=== PATIENT | female | born 1945 | race Caucasian/White ===

== ENCOUNTER 2019-07-10 03:06 | Emergency (ER) | payer MEDICARE, SELFPAY ==
[2019-07-10] VITALS (13 sets, daily range): BP systolic 127–162; BP diastolic 73–102; PULSE 71–95; RESP 14–18; TEMP 36.7; O2SAT 94–99; BMI 31.5
--- NOTE | 2019-07-10 03:08 | ED_ITS ---
Entered by Cathie Rivera, acting as scribe for Cele Ramos Documented by User: Cele Ramos 07/10/19 06:02 HPI - Abdominal Pain General: Chief Complaint: Abdominal Pain Stated Complaint: abd pain Time Seen by Provider: 07/10/19 03:10 Source: patient and family Mode of arrival: ambulatory History of Present Illness: HPI narrative: 74 y/o female presents to the ED with complaint of right sided abd pain. Pt states she has had this pain and nausea since last Wednesday. The pain seems worse with movement. She denies diarrhea, but has had some loose stools. She has hx of gallbladder attacks, but states this pain does not feel the same. MD elicited complaint: abdominal pain Onset (ago): week(s) Pain Consistency: constant Location: RUQ and RLQ Severity: moderate Exacerbating factors: movement Associated Symptoms: Reports loose stools; Denies chills, dysuria, fever(s), hematuria and syncope Review of Systems General: Reports: other (negative unless marked) Const: Denies: fever, chills, body aches, fatigue, malaise or diaphoresis Eyes: Denies: change in vision or blurry vision ENMT: Denies: throat pain, painful swallowing, hoarseness, ear pain, ear discharge, Change in hearing or nasal discharge Card: Denies: chest pain, palpitations, irregular heart rhythm, syncope, pre- syncope, shortness of breath on exertion or shortness of breath when lying down Resp: Denies: shortness of breath, productive cough, non-productive cough, wheezing, coughing up blood or chest congestion : Denies: flank pain, painful urination, urinary frequency, urinary urgency, decreased urine ouput, urinary incontinence or blood in urine Musc: Denies: neck pain, back pain, extremity pain, extremity swelling, joint pain, joint swelling, joint warmth or joint stiffness Skin/Breast: Denies: rash, skin tenderness or yellow skin Neuro: Denies: headache, numbness in extremities, weakness in extremities, changes in sensation, lack of coordination, difficulty walking, dizziness, vertigo or confusion Endo: Denies: excessive thirst, tired all the time, cold intolerance, excessive sweating, flushing or hot flashes Tr/Lymph: Denies: easy bruising, easy bleeding, petechiae or enlarged lymph nodes All/Imm: Denies: hives, throat swelling, tongue swelling, facial swelling or acute wheezing PFSH ED PFSH: Social History Smoking and tobacco status: current every day smoker Physical Exam Const: COMMON NORMALS: no apparent distress, oriented x3, no limitations, healthy appearing and well nourished EXAM LIMITATIONS: no altered mental status GENERAL APPEARANCE: cooperative, well kempt and well developed ORIENTATION/CONSCIOUSNESS: Yes awake HENMT: COMMON NORMALS: normocephalic, head/scalp atraumatic, hearing grossly normal bilaterally, external ears normal, EAC's normal, external nose normal and moist oral mucous membranes HEAD & SCALP: normal to inspection, normocephalic and atraumatic FACE & SINUS: normal facial exam and face symmetric NOSE: external nose normal and nares normal EXTERNAL EAR: Yes external ears normal EXTERNAL AUDITORY CANAL: EAC's normal MOUTH: oral and palatal mucosa normal and tongue normal Eye: COMMON NORMALS: PERRL, EOMs intact bilaterally, conjunctivae normal and no scleral icterus GENERAL EYE: normal appearance of both eyes and normal light reflex CONJUNCTIVA: Yes conjunctivae normal SCLERA: sclerae normal CORNEA: Yes corneas normal PUPIL: Yes PERRL DIRECT OPHTHALMOSCOPY: Yes normal light reflex Neck/C-Spine: COMMON NORMALS: full ROM, no lymphadenopathy, supple, no meningeal signs and no JVD GENERAL: Yes normal visual inspection and Yes trachea midline CERVICAL SPINE: Yes cervical ROM normal Chest: COMMONS NORMALS: inspection of chest normal and palpation of chest normal Resp: COMMON NORMALS: normal respiratory effort, no retractions, no use of accessory muscles and clear to auscultation bilaterally EFFORT & INSPECTION: Yes able to speak in complete sentences AUSCULTATION: clear to auscultation bilaterally Cardio: COMMON NORMALS: no JVD, regular rate, regular rhythm, S1 normal heart sound, S2 normal heart sound, no gallops, no clicks, no murmurs and no rub JUGULAR VENOUS DISTENTION: no JVD RATE: regular rate RHYTHM: regular rhythm HEART SOUNDS: S1 normal and S2 normal : COMMON NORMALS: Yes no CVA tenderness BLADDER/KIDNEY EXAM: Yes no CVA tenderness Back/Pelvis: COMMON NORMALS: no CVA tenderness, thoracic and lumbar spine normal to inspection, no thoracic nor lumbar tenderness and thoraco-lumbar ROM normal Extremity: COMMON NORMALS: normal to inspection, full ROM, normal capillary refill, no joint enlargement, no clubbing, cyanosis or edema and no calf tenderness Neuro: COMMON NORMALS: oriented x3, CN's II-XII intact bilaterally, moves all extremities, no focal motor deficits and no sensory deficits noted MENINGEAL SIGNS: Yes no meningeal signs Psych: COMMON NORMALS: mental status grossly normal, thought process normal, cooperative, affect normal, speech normal and activity/motor behavior normal APPEARANCE: Yes well kempt SPEECH: Yes normal speech THOUGHT PROCESS: normal thought process Skin: COMMON NORMALS: no rashes or lesions noted, skin turgor normal, no jaundice, no petechiae and no mottling GENERAL SKIN EXAM: no rashes or lesions noted and turgor normal Course Vital Signs: Vital signs: Vital Signs Temperature 98.0 F 07/10/19 03:32 Pulse Rate 71 07/10/19 09:24 Respiratory Rate 16 07/10/19 09:24 Blood Pressure 141/79 07/10/19 09:24 Pulse Oximetry 94 07/10/19 09:24 MDM - Abdominal Pain Lab Data: Labs: Lab Results 07/10/19 07/10/19 07/10/19 Range/Units 03:39 03:39 03:59 WBC 9.5 (4.0-10.0) 10^3/ uL RBC 3.97 L (4.1-5.3) 10^6/u L Hgb 11.5 (11.5-15.3) g/dL Hct 36.3 L (37.0-47.0) % MCV 91.4 (81-99) fL MCH 29.0 (28.0-34.0) pg MCHC 31.7 (30.0-36.0) g/dL RDW 12.7 (12.1-15.1) % Plt Count 362 (130-400) 10^3/c mm MPV 9.9 (7.4-10.4) fL Neut % (Auto) 70.0 % Lymph % (Auto) 15.5 % Clark % (Auto) 10.8 % Eos % (Auto) 3.1 % Baso % (Auto) 0.5 % Neut # (Auto) 6.6 (1.8-7.7) 10^3/u L Lymph # (Auto) 1.5 (0.8-4.8) 10^3/u L Clark # (Auto) 1.0 H (0.2-0.9) 10^3/u L Eos # (Auto) 0.3 (0.0-0.8) 10^3/u L Baso # (Auto) 0.1 (0.0-0.1) 10^3/u L Nucleated RBC % (a uto) 0 % Nucleated RBCs # 0.0 /100WBC Sodium 137 (136-145) mmol/L Potassium 4.0 (3.5-5.1) mmol/L Chloride 98 (98-107) mmol/L Carbon Dioxide 26 (22-29) mmol/L Anion Gap 17.0 (5-19) BUN 13 (8-23) mg/dL Creatinine 0.6 (0.5-0.9) mg/dL Glucose 133 H (65-115) mg/dL Calcium 9.8 (8.5-10.5) mg/dL Total Bilirubin 0.4 (0.15-1.2) mg/dL AST 38 H (0-32) U/L ALT 27 (0-33) U/L Alkaline Phosphata se 167 H (35-105) IU/L Total Protein 8.5 (6.6-8.7) g/dL Albumin 3.7 (3.5-5.2) g/dL Globulin 4.8 H (1.3-4.6) g/dL Lipase 14 (13-60) U/L Urine Color Yellow (Yellow) Urine Appearance Clear (CLEAR) Urine pH 5 (5-7) Ur Specific Gravit y 1.020 (1.005-1.030) Urine Protein Neg (Negative) Urine Glucose (UA) Norm (Normal) Urine Ketones Negative (Negative) Urine Occult Blood 2+ H (Negative) Urine Nitrate Negative (Negative) Urine Bilirubin Neg (NEGATIVE) Urine Urobilinogen 1 H (Negative) mg/dL Ur Leukocyte Danielle ase Negative (Negative) Urine RBC 0-4 H (0-2) /hpf Urine WBC 0-4 H (0-5) /hpf Ur Squamous Epith Cells 5-10 H (0-5) Calcium Oxalate Cr ystal >100 H /hpf Urine Bacteria Trace (NONE) Urine Mucus 1+ Discharge Plan Discharge Patient Disposition: Home, Self-Care Clinical Impression: Pancreatic mass, Pelvic mass Condition: Stable Prescriptions: New hydrocodone-acetaminophen 5-325 mg tablet 1 tab PO Q6H PRN (Reason: pain) Qty: 30 RF: 0 Zofran 4 mg tablet 4 mg PO Q6H PRN (Reason: nausea and vomiting) Qty: 20 RF: 0 No Action Multiple Vitamins Tablet 1 tab PO DAILY RF: 0 atorvastatin 80 mg tablet 80 mg PO DAILY RF: 0 Aspir-81 81 mg Tablet,Delayed Release (Dr/Ec) 81 mg PO DAILY RF: 0 levothyroxine 75 mcg tablet 75 mcg PO DAILY RF: 0 Calcium 500 500 mg calcium (1,250 mg) Tablet 500 mg PO DAILY RF: 0 Colace 100 mg Capsule 100 mg PO DAILY RF: 0 CoQ-10 100 mg Capsule 100 mg PO DAILY RF: 0 Discharge Orders: Discharge Order (Routine); Ordered 07/10/19 Ordered By: Abdulaziz Fabian Referrals: Echo Ayala MD [Family Provider] - Discharge Diet: Usual diet Discharge Activity: Increase activity as tolerated Activity Restrictions/Additional Instructions: Case management will call with a referral for CT-guided needle biopsy after this you need to see your primary care provider for further referral for pancreatic and pelvic masses Discharge Date/Time: 07/10/19 09:24 Sign Out Sign Out Data: Patient Sign Out occurred on 07/10/19 at 06:08. Patient's care was discussed, and care was transferred from to Abdulaziz Fabian DO. Coding Level of Care Code ED Melon Packer for Chg Fwd Exam Comprehensive Documented by User: Abdulaziz Fabian DO 07/11/19 10:22 HPI - Abdominal Pain General: Chief Complaint: Abdominal Pain Stated Complaint: abd pain Time Seen by Provider: 07/10/19 03:10 PFS ED PFSH: Social History Smoking and tobacco status: current every day smoker Course ED course: Care assumed at change of shift. We are waiting on ultrasounds ultrasound and CT reviewed Dr. 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 Reviewed this with her again there was a concern about invasion into the splenic artery I called and talked to Dr. Hernandez at [facility] at [facility] he states this is a common finding at the time of presentation does not require any immediate or emergent intervention unless there is signs of extravasation which there are not on the CT. We will go ahead and discharge the patient with pain and nausea control and set her up for further evaluation to get the lesions biopsied. Will refer her back to PCP to make her referrals for further work-up. Vital Signs: Vital signs: Vital Signs Temperature 98.0 F 07/10/19 03:32 Pulse Rate 71 07/10/19 09:24 Respiratory Rate 16 07/10/19 09:24 Blood Pressure 141/79 07/10/19 09:24 Pulse Oximetry 94 07/10/19 09:24 MDM - Abdominal Pain Lab Data: Labs: Lab Results 07/10/19 07/10/19 07/10/19 Range/Units 03:39 03:39 03:59 WBC 9.5 (4.0-10.0) 10^3/ uL RBC 3.97 L (4.1-5.3) 10^6/u L Hgb 11.5 (11.5-15.3) g/dL Hct 36.3 L (37.0-47.0) % MCV 91.4 (81-99) fL MCH 29.0 (28.0-34.0) pg MCHC 31.7 (30.0-36.0) g/dL RDW 12.7 (12.1-15.1) % Plt Count 362 (130-400) 10^3/c mm MPV 9.9 (7.4-10.4) fL Neut % (Auto) 70.0 % Lymph % (Auto) 15.5 % Clark % (Auto) 10.8 % Eos % (Auto) 3.1 % Baso % (Auto) 0.5 % Neut # (Auto) 6.6 (1.8-7.7) 10^3/u L Lymph # (Auto) 1.5 (0.8-4.8) 10^3/u L Clark # (Auto) 1.0 H (0.2-0.9) 10^3/u L Eos # (Auto) 0.3 (0.0-0.8) 10^3/u L Baso # (Auto) 0.1 (0.0-0.1) 10^3/u L Nucleated RBC % (a uto) 0 % Nucleated RBCs # 0.0 /100WBC Sodium 137 (136-145) mmol/L Potassium 4.0 (3.5-5.1) mmol/L Chloride 98 (98-107) mmol/L Carbon Dioxide 26 (22-29) mmol/L Anion Gap 17.0 (5-19) BUN 13 (8-23) mg/dL Creatinine 0.6 (0.5-0.9) mg/dL Glucose 133 H (65-115) mg/dL Calcium 9.8 (8.5-10.5) mg/dL Total Bilirubin 0.4 (0.15-1.2) mg/dL AST 38 H (0-32) U/L ALT 27 (0-33) U/L Alkaline Phosphata se 167 H (35-105) IU/L Total Protein 8.5 (6.6-8.7) g/dL Albumin 3.7 (3.5-5.2) g/dL Globulin 4.8 H (1.3-4.6) g/dL Lipase 14 (13-60) U/L Urine Color Yellow (Yellow) Urine Appearance Clear (CLEAR) Urine pH 5 (5-7) Ur Specific Gravit y 1.020 (1.005-1.030) Urine Protein Neg (Negative) Urine Glucose (UA) Norm (Normal) Urine Ketones Negative (Negative) Urine Occult Blood 2+ H (Negative) Urine Nitrate Negative (Negative) Urine Bilirubin Neg (NEGATIVE) Urine Urobilinogen 1 H (Negative) mg/dL Ur Leukocyte Danielle ase Negative (Negative) Urine RBC 0-4 H (0-2) /hpf Urine WBC 0-4 H (0-5) /hpf Ur Squamous Epith Cells 5-10 H (0-5) Calcium Oxalate Cr ystal >100 H /hpf Urine Bacteria Trace (NONE) Urine Mucus 1+ Discharge Plan Discharge Patient Disposition: Home, Self-Care Clinical Impression: Pancreatic mass, Pelvic mass Condition: Stable Prescriptions: New hydrocodone-acetaminophen 5-325 mg tablet 1 tab PO Q6H PRN (Reason: pain) Qty: 30 RF: 0 Zofran 4 mg tablet 4 mg PO Q6H PRN (Reason: nausea and vomiting) Qty: 20 RF: 0 No Action Multiple Vitamins Tablet 1 tab PO DAILY RF: 0 atorvastatin 80 mg tablet 80 mg PO DAILY RF: 0 Aspir-81 81 mg Tablet,Delayed Release (Dr/Ec) 81 mg PO DAILY RF: 0 levothyroxine 75 mcg tablet 75 mcg PO DAILY RF: 0 Calcium 500 500 mg calcium (1,250 mg) Tablet 500 mg PO DAILY RF: 0 Colace 100 mg Capsule 100 mg PO DAILY RF: 0 CoQ-10 100 mg Capsule 100 mg PO DAILY RF: 0 Discharge Orders: Discharge Order (Routine); Ordered 07/10/19 Ordered By: Abdulaziz Fabian Referrals: Echo Ayala MD [Family Provider] - Discharge Diet: Usual diet Discharge Activity: Increase activity as tolerated Activity Restrictions/Additional Instructions: Case management will call with a referral for CT-guided needle biopsy after this you need to see your primary care provider for further referral for pancreatic and pelvic masses Discharge Date/Time: 07/10/19 09:24 Sign Out Sign Out Data: Patient Sign Out occurred on 07/10/19 at 06:08. Patient's care was discussed, and care was transferred from to Abdulaziz Fabian DO. Coding Level of Care Code ED Melon Packer for Chg Fwd Exam Comprehensive The documentation recorded by the Miguel armando Ashley, accurately reflects the service I personally performed and the decisions made by Richard barnhart Eli N Jul 10, 2019 03:06
--- NOTE | 2019-07-10 03:17 | PC.NURSE ---
Patient states she has been having abdominal pain since last wednesday and it is located in her right upper quadrant. Patient states the pain gets worse when she lays on her side. Patient states that she has been having chills and night sweats.
--- NOTE | 2019-07-10 03:23 | CTR_ITS ---
PROCEDURE INFORMATION: Exam: CT Abdomen And Pelvis With Contrast Exam date and time: 07/10/2019 3:33 AM Age: 74 years old Clinical indication: Nausea; Abdominal pain; Localized; Right upper quadrant (ruq); Prior surgery; Surgery date: 6+ months; Surgery type: Hyst TECHNIQUE: Imaging protocol: Computed tomography of the abdomen and pelvis with intravenous contrast. Total DLP: 827.33 mGy-cm Radiation optimization: All CT scans at this facility use at least one of these dose optimization techniques: automated exposure control; mA and/or kV adjustment per patient size (includes targeted exams where dose is matched to clinical indication); or iterative reconstruction. Contrast material: VISI; Contrast volume: 95 ml; Contrast route: IV; COMPARISON: [facility] [place] Abdomen Limited 01/05/2019 11:38 AM FINDINGS: Lungs: Slight bilateral dependent atelectasis. Liver: Multiple liver masses containing soft tissue density (sees 35 to 45 HU, the largest measuring 4.5 cm in greatest diameter; no demonstration of these masses on the prior ultrasound. Gallbladder and bile ducts: No calcified stones. No ductal dilation. Pancreas: Relatively ill-defined margins of the mass in the pancreatic tail measuring 2.6 x 2.7 x 4.9 cm containing mostly soft tissue density having less enhancement than the normal pancreas; small anterior focus of water density in the mass. Spleen: No splenomegaly. Adrenals: No adrenal mass. Kidneys and ureters: Unremarkable. No hydronephrosis. Stomach and bowel: At least moderate sigmoid colonic diverticulosis. No obstruction. Appendix: Normal appendix. Intraperitoneal space: No free air. No apparent free fluid. Vasculature: No normal splenic vein; probable invasion and occlusion of the splenic vein by the pancreatic mass, especially considering the small varices in the splenic hilus. Concern for developing invasion of the splenic artery in light of the lack of fat between the mass and the artery and the apparent slight irregularity of part of the arterial margin. Atherosclerosis. No aortic aneurysm. Lymph nodes: No enlargement of the periportal nodes or the other abdominal and pelvic nodes. Bladder: No apparent abnormality of the nondistended bladder. Reproductive: Hysterectomy. Small metallic density in the left side of the vaginal cuff and in the left pelvis adjacent to the sigmoid colon. Ovoid 12 mm calcification adjacent to the left margin of the approximately 10 x 13.1 x 10.1 cm slightly lobulated pelvic mass containing multiple rim calcifications but mostly homogeneous water density; small focus of slight wall thickening in the anterior inferior margin of the mass along the medial aspect of the right lobulation. Bones/joints: Possible bone island in the left superior acetabulum. Small sclerotic focus in the left superior aspect of T10, significance unclear. Old compression fractures. Degeneration of several discs. Soft tissues: Unremarkable. CT/CT abdomen pelvis w con* [id number] IMPRESSION: 1. 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 Concern for developing invasion of the splenic artery. Multiple liver masses consistent with metastases also evident. 2. Large pelvic mass having density suggestive of an ovarian cyst, but cystadenoma not excluded considering the rim calcifications in the mass. Hysterectomy. 3. Sclerotic focus in T10, questionably a 2nd bone island considering the possible bone island in the left superior acetabulum. Other findings detailed above. Radiation Dose CTDIVOL = (mGy): DLP = 827.33 (mGy-cm)
[2019-07-10 03:46] LABS: Basophils # 0.1 10^3/uL (0.0-0.1); Basophils % 0.5 %; Eosinophils # 0.3 10^3/uL (0.0-0.8); Eosinophils % 3.1 %; Hematocrit 36.3 % (37.0-47.0); Hemoglobin 11.5 g/dL (11.5-15.3); Lymphocytes # 1.5 10^3/uL (0.8-4.8); Lymphocytes % 15.5 %; Mean Corpuscular HGB Conc 31.7 g/dL (30.0-36.0); Mean Corpuscular Volume 91.4 fL (81-99); Mean Platelet Volume 9.9 fL (7.4-10.4); Monocytes % 10.8 %; Neutrophils # 6.6 10^3/uL (1.8-7.7); Nucleated Red Blood Cells % 0 %; Platelet Count 362 10^3/cmm (130-400); Red Blood Count 3.97 10^6/uL (4.1-5.3); Red Cell Distribution Width 12.7 % (12.1-15.1); White Blood Count 9.5 10^3/uL (4.0-10.0)
[2019-07-10] MEDS: sodium chloride 0.9% 1,000 ML 100 ML IV (03:52)
[2019-07-10] MEDS: morphine 4 mg/mL SDV 1 mL IVP (03:52)
[2019-07-10] MEDS: ondansetron 2 mg/ML SDV 2 mL 4 MG IVP ×2 (03:52→09:15)
[2019-07-10 03:57] LABS: Alanine Aminotransferase 27 U/L (0-33); Albumin Level 3.7 g/dL (3.5-5.2); Alkaline Phosphatase 167 IU/L (35-105); Aspartate Amino Transferase 38 U/L (0-32); Blood Urea Nitrogen 13 mg/dL (8-23); Calcium 9.8 mg/dL (8.5-10.5); Carbon Dioxide 26 mmol/L (22-29); Chloride 98 mmol/L (98-107); Creatinine Clr Calc Pharmacy 69.9615; Globulin 4.8 g/dL (1.3-4.6); Glucose 133 mg/dL (65-115); Lipase 14 U/L (13-60); Sodium 137 mmol/L (136-145); Total Bilirubin 0.4 mg/dL (0.15-1.2); Total Protein 8.5 g/dL (6.6-8.7)
--- NOTE | 2019-07-10 04:19 | PC.NURSE ---
Patient to CT
[2019-07-10 04:22] LABS: Glucose Urine UA Norm (Normal); Ketones Urine Negative (Negative); Protein Urine Neg (Negative); Urine Appearance Clear (CLEAR); Urine Color Yellow (Yellow); pH Urine 5 (5-7)
[2019-07-10 04:23] LABS: Bilirubin Urine Neg (NEGATIVE); Blood Urine 2+ (Negative); Leukocyte Esterase Urine Negative (Negative); Nitrate Urine Negative (Negative); Urobilinogen Urine 1 mg/dL (Negative)
[2019-07-10 04:25] LABS: Bacteria Urine TRACE; Calcium Oxalate Crystals Urine >100 /hpf; Mucus Urine 1+; RBC Urine 0-4 /hpf (0-2); WBC Urine 0-4 /hpf (0-5)
[2019-07-10] MEDS: iodixanol 320 mg/mL 100mL Btl IV (04:25)
[2019-07-10 04:26] LABS: Add Urine Culture? No
--- NOTE | 2019-07-10 05:17 | PC.NURSE ---
Patient placed on 2 liters of oxygen to maintain SpO2 above 91%
--- NOTE | 2019-07-10 05:51 | US_ITS ---
WS: [id number] Complete ABDOMINAL ULTRASOUND HISTORY: Abdominal Pain COMPARISON: 01/05/2019 Liver: 15.3 cm in length. Abnormal liver. Numerous mixed echogenicity masses throughout the liver are predominantly hypoechoic. Not identified on the prior ultrasound. The largest mass measures 4.5 x 4. 9 cm. No bile duct dilatation. Gallbladder: Mild diffuse gallbladder wall thickening may be on the basis of hepatocellular disease. No stones identified. Gallbladder wall thickness: 0.4 cm. Pancreas: Head and tail are poorly visualized. CBD: 0.7 cm. Right kidney: 9.8 cm x 4.6 cm x 5.8 cm. No mass, cortical thickening or hydronephrosis. Left kidney: 10.0 cm x 5.0 cm x 6.5 cm. No mass, cortical thickening or hydronephrosis. Spleen: Normal size and echogenicity. Abdominal aorta and IVC are within normal limits. No ascites. US/US abdomen complete* [id number] IMPRESSION: 1. Hepatic metastasis. New since 01/05/2019. 2. Poorly visualized pancreas. The pancreatic tail mass identified by CT is no t readily visible by ultrasound. 3. Mild gallbladder wall thickening without cholelithiasis.
--- NOTE | 2019-07-10 05:52 | US_ITS ---
WS: [id number] TRANSABDOMINAL PELVIC ULTRASOUND HISTORY: Pelvic pain, history of hysterectomy. COMPARISON: CT abdomen and pelvis 07/10/2019 Neither uterus nor ovaries are identified. There is a large cystic collection in the midline of the pelvis slightly displacing the urinary bladd er. Midline collection measures 12.4 x 9.4 x 9.7 cm. No increased vascularity is identified. There ar e low level echoes throughout. No free fluid. US/US pelvic complete* [id number] IMPRESSION: 1. Large midline minimally complex cystic mass measuring 12.4 x 9.4 x 9.7 cm. Uncertain whether the ovaries have been removed. This may represent a cystadeno ma or neoplastic cystic mass related to the ovary. Due to its size OPTOMETRY TEACHER consulta tion is recommended. 2. Neither ovary nor uterus identified as per hysterectomy history.
--- NOTE | 2019-07-10 06:47 | PC.NURSE ---
ultrasound in room
[2019-07-10] MEDS: morphine 4 mg/mL SDV 1 mL 2 MG IVP (09:15)
--- NOTE | 2019-07-10 10:47 | PC.SOCIAL ---
Dr Fabian wrote order for outpatient CT guided biopsy of liver faxed to [facility] and talked to Cathie who has scheduled this for 07/17/2019 check in at 9am. Notified patient of the date and time by phone and to not eat 6 hours prior, Bring meds in bottles, no lotions on the safe side and will need a flatbed driver. Per Cathie no precert needed. copy of request in chart and taken to admissions.
== END 2019-07-10 09:24 | disposition home or self-care (01) ==
PROVIDERS: Emergency Medicine; Emergency Provider Family Medicine; Family Provider Family Medicine
DX: K86.9 Disease of pancreas, unspecified (principal); R19.00 Intra-abdominal and pelvic swelling, mass and lump, unspecified site; F17.200 Nicotine dependence, unspecified, uncomplicated
CPT/HCPCS: 36415; 74177; 76700; 76856; 80053; 81001; 83690; 85025; 96361; 96374; 96375; 96376; 99283; A9270; J2270; J2405; J7030; Q9967

== ENCOUNTER → 2019-07-17 08:56 | Day surgery (SDC) | payer MEDICARE, SELFPAY ==
[2019-07-14 14:28] VITALS: BMI 31.5
[2019-07-17] VITALS (11 sets, daily range): BP systolic 120–174; BP diastolic 80–111; PULSE 67–100; RESP 16–20; TEMP 36.6–37.3; O2SAT 94–100
--- NOTE | 2019-07-17 09:39 | US_ITS ---
WS: [id number] ULTRASOUND-GUIDED LIVER BIOPSY CLINICAL INFORMATION: PANCREATIC CA WITH METS, PANCREATIC MASS COMPARISON: None. TECHNIQUE: The procedure including risk, benefits, and complications were discussed with the patient who agreed to proceed. Using sterile technique, the patient was prepped and draped in the usual steri le fashion. Patient was positioned [id number] and ultrasound images were obtained through the [facility] er. The largest peripheral liver nodule was selected. After 1% lidocaine using fluoroscopic guidance, a 18 gauge Bard biopsy device was advanced into the liver mass. Approximately 5 samples were obtaine d. No immediate complications. US/US biopsy liver [id number] IMPRESSION: 1. Multiple 18-gauge core samples were obtained of the right liver mass. No im mediate complications. 2. Patient was discharged 1 hour postprocedure in stable condition.
[2019-07-17] MEDS: sodium chloride 0.9% 1,000 ML 30 ML (09:50)
[2019-07-17 10:11] LABS: Platelet Count 390 10^3/cmm (130-400)
[2019-07-17 10:27] LABS: INR 0.93 (0.8-1.2)
[2019-07-17] MEDS: midazolam 1 mg/mL INJ 5 ML IVP ×2 (10:56→11:06)
--- NOTE | 2019-07-17 11:27 | SUR.OPER ---
100mcg Fentnyl wasted 3mg Versed wated
== END ==
PROVIDERS: Radiology Neuroradiology; Family Provider Family Medicine; PCP Family Medicine; Visit Provider Family Medicine
DX: C25.9 Malignant neoplasm of pancreas, unspecified (principal)
CPT/HCPCS: 36415; 47000; 76942; 85049; 85610; 88307; 96374; 96375; J2001; J2250; J3010; J7030

== ENCOUNTER 2019-08-02 09:49 | Outpatient (CLI) | payer MEDICARE, SELFPAY ==
--- NOTE | 2019-08-02 16:24 | ONC CON_ITS ---
Dr. Moreno New Patient Note Patient: Anyi Bone Unit #: [id number]: [id number] Dicatated By: Thomas Moreno M.D.Date of Visit: Aug 02, 2019 Onc MED New Patient/Consult Referring Physician: Baldo Bell History of Present Illness: Mrs. Wai Bone, 74-year-old female who was admitted to [facility] on 07/10/2019 with right upper quadrant abdominal pain, pelvic sonogram showed large midline minimally complex cystic mass measuring 12.4 x 9.7 cm far to represent cystoadenoma or neoplastic cystic mass related to the ovary. A CT scan of abdomen pelvis was done which showed pancreatic tail mass measuring 2.7 x 4.9 cm highly suggestive of primary malignancy having invaded and occluded the splenic vein with concern for bone pain vision of splenic artery. And multiple liver masses consistent with metastatic disease and large pelvic mass having density suggestive of ovarian cyst but cystoadenoma not excluded. An ultrasound guided liver biopsy was performed on 07/17/2019 and pathology revealed moderately differentiated adenocarcinoma. Immunohistochemistry was positive for CK 7, vimentin, CA 19???9 NICOLAS. Focally positive for CEA. Patient denies any history of jaundice patient denies any history of melena or hematochezia patient denies any history of hemoptysis or hematemesis patient denies any history of vaginal bleeding. Patient denies any history of weight loss. She is still having right upper quadrant pain but being controlled by hydrocodone 10/325 and she take it 2- 3 times a day. And also complaining of off and on constipation. Patient is an excellent health otherwise, possible medical history significant for hypothyroidism, hyperlipidemia and she has history of hysterectomy in the past Smoke about half pack a day the last 30 years, denies alcohol use. Past Medical History: Ms. Hill medical history consists of hyperlipidemia and hypothyroidism. Past Surgical History: Ms. Hill surgical/procedural history consists of hysterectomy. Medications: Aspirin 1 Tablet (of 81 mg) Oral daily, Calcium 1 Capsule (of 250 mg) Oral daily, Co Q 10 1 Capsule (of 100 mg) Oral daily, HYDROcodone-Acetaminophen 1 Tablet (of 10-325 mg) Oral q 5 hours PRN, Levothyroxine Sodium 1 Tablet (of 75 mcg) Oral daily, Lipitor 1 Tablet (of 80 mg) Oral daily, MiraLax Powder Oral PRN, Multiple Vitamins/Womens Tablet Oral, Ondansetron HCl 1 Tablet (of 4 mg) Oral q 6 hours PRN Allergies: No Known Allergies. Social History: Ms. Bone is and she is retired. She is a daily smoker who has smoked 0.5 packs/day for 30 years. She drinks daily. She consumes 1 drink/day. Family History: Father- colon cancer Mother- lung cancer. Review Of Symptoms: Constitutional - Appetite is diminished and weight is stable. No fever, chills, hot flashes. Positive for night sweats. Energy level is fair, ENMT - Positive for sinus congestion/drainage. No mouth sores. No sore throat or difficulty swallowing, Hematologic/Lymphatic - Positive for easy bruisnig, Respiratory - No shortness of breath. No cough. No pleuritic pain or hemoptysis, Cardiovascular - No angina pain. No palpitations, Gastrointestinal - Positive for nausea, no vomiting. No heartburn or acid reflux. Positive for diarrhea, no constipation. No blood in the stool or black stools, Genitourinary (F) - No dysuria or hematuria. No urinary frequency. No urgency or incontinence, Musculoskeletal - No joint or bone pain, Neurologic - No headache or dizziness. No numbness/paresthesias or other focal neurologic symptoms, Psychiatric - Positive for anxiety. Vital Signs: Performed on Aug 02, 2019 11:44: 4, 31.59 (HIGH), 1.66 sq.m, 59 in, 95 % (LOW), 72 /min, 17 /min, 131/81 mm(hg), 98.0 F (LOW), and 156.4 lbs (HIGH). Performance Status: 0 - Fully active, able to carry on all predisease activities without restrictions. (ECOG) Physical Examination: ENMT - . No oral exudates, ulcers, masses, thrush or mucositis. Oropharynx clear. Tongue normal, Respiratory - Lungs are clear to auscultation without rhonchi or wheezing, Cardiovascular - Regular rate and rhythm of heart, Abdomen - obesity,Non-tender, non-distended, Good bowel sounds. No guarding or rebound tenderness. No pulsatile masses, Extremities - no edema. Lab/Imaging: Most recent lab results are not available for this patient. Impression: Moderately differentiated adenocarcinoma per ultrasound-guided liver biopsy done on 07/17/2019, immunohistochemistry positive for CK 7, vimentin, high molecular weight CK, CA 19???9, NICOLAS. CT scan of abdomen pelvis done on 07/10/2019 showed anterior tibial mass measuring 2.7 x 4.9 cm highly suggestive of primary malignancy and having invaded and occluded the splenic vein, concern for developing invasion of splenic artery. Multiple liver masses consistent with metastatic disease. Large pelvic mass having density suggestive of ovarian cyst, but cystoadenoma not excluded considering rim calcification in the mass, status post hysterectomy Sclerotic focus in T10, questionable second bone island considering possible bone island in the left superior acetabulum. History of hypothyroidism History of hyperlipidemia Plan: Discussed with patient regarding her disease status and treatment options, patient's ultrasound-guided liver biopsy confirmed moderately differentiated adenocarcinoma and immunohistochemistry findings are not entirely specific but suggest a pancreaticobiliary primary. At this point we will consider MSI/MMR status on the tumor if positive, immunotherapy with pembrolizumab can be considered also check BRCA1/2 status if positive may consider gemcitabine/cisplatin based combination also check an TRK1 gene status. In the meantime also review tumor marker CA 19???9 is elevated, will use for follow-up and CEA 125 if elevated will consider intervention for pelvic mass otherwise monitor. Patient has excellent performance status and may consider modified dose of folfirinox and titrate up as tolerated. Other options including gemcitabine/Abraxane or gemcitabine/cisplatin if BRCA 1/2 is positive or gemcitabine/Xeloda, was also discussed All the side effect possible benefits associated with 5-FU/oxaliplatin/Camptosar were discussed further teaching done by chemotherapy nurse. We will obtain approval from her insurance and also request for Port-A-Cath placement and we'll give her prescription for her pain medication hydrocodone 10/325 she will take 1 tablet every 4-6 hours as needed. And patient will return to clinic 1 week after chemotherapy is initiated with CBC CMP Signed By: Thomas Moreno M.D. <<Signature on File>>
[2019-08-16 09:52] LABS: Miscellaneous Test See Scanned Lab Rpt
== END 2019-08-02 09:50 | disposition home or self-care (01) ==
LOC: ONCMED 09:49
PROVIDERS: Family Provider Family Medicine; PCP Family Medicine; Visit Provider Internal Medicine Hematology & Oncology
DX: C25.2 Malignant neoplasm of tail of pancreas (principal); C78.7 Secondary malignant neoplasm of liver and intrahepatic bile duct; G89.3 Neoplasm related pain (acute) (chronic); K59.00 Constipation, unspecified; E78.5 Hyperlipidemia, unspecified; E03.9 Hypothyroidism, unspecified; F17.210 Nicotine dependence, cigarettes, uncomplicated; F10.20 Alcohol dependence, uncomplicated; Z79.82 Long term (current) use of aspirin; Z79.899 Other long term (current) drug therapy; Z79.891 Long term (current) use of opiate analgesic
CPT/HCPCS: 88341; 88342; 99203

== ENCOUNTER 2019-08-14 10:58 | Day surgery (SDC) | payer MEDICARE, SELFPAY ==
[2019-08-11 13:06] VITALS: BMI 30.9
--- NOTE | 2019-08-14 | SCC_ITS ---
Procedure Done: Right IJ ultrasound-guided insertion of Port-A-Cath PowerPort 8.4 seconds of fluoroscopic guidance, for a cumulative dose of 0.40 mGy, was provided to Dr. Conroy by the radiology department. C-arm images of the chest were saved for the patient's permanent record. [facility]
[2019-08-14 11:31] VITALS: BP 125/97; PULSE 80; RESP 20; TEMP 37.3; O2SAT 96
--- NOTE | 2019-08-14 11:45 | W.PM.OPSUD ---
Surgery/Procedure H&P Update DATE OF PROCEDURE: August 14, 2019 DATE H&P PERFORMED: 08/09/19 H&P UPDATE INFORMATION: I have reviewed H&P completed within last 30 days, I have examined patient prior to procedure and No changes to prior documentation PREOP DIAGNOSIS: Pancreatic cancer requires Port-A-Cath PRIMARY INDICATION FOR PROCEDURE: The same PLANNED PROCEDURE: Operation Date: 08/14/19 12:30 Proposed Procedures p Portacath Placement 66436 C25.9 C78.7(Not Applicable) - Willard Conroy MD
[2019-08-14] MEDS: sodium chloride 0.9% 1,000 ML 30 ML IV (11:54)
--- NOTE | 2019-08-14 11:58 | P.ANESASSM_ITS ---
Pre-Anesthetic Assessment Pre-Anesthetic Assessment: Height/Weight: Height 1.5 m Weight 69.4 kg Temp Pulse Resp BP Pulse Ox 99.2 F 80 20 H 125/97 96 08/14/19 11:31 08/14/19 11:31 08/14/19 11:31 08/14/19 11:31 08/14/19 11:31 Preop Diagnosis: Pancreatic cancer requires Port-A-Cath Proposed Procedure: Operation Date: 08/14/19 12:30 Proposed Procedures p Portacath Placement 04556 C25.9 C78.7(Not Applicable) - Willard Conroy MD Familial anesthetic complications: Hard to wake up after anesthesia with pen tothal in the 1960s Was Beta Maite taken within 24 hours: N/A Last intake: Intake NPO > 8 hrs Last Liquid Date 08/14/19 Last Liquid Time 06:30 Last Solid Date 08/13/19 Last Solid Time 19:00 Social: Social History: Alcohol (1 glass of wine daily) and Tobacco Packs per day: 0.5 ppd Exam: Pre-Anes Outpt Exam: alert, oriented x 3, clear to auscultation bilaterally and regular rate & rhythm Airway: Cervical ROM: WNL MP: 2 Dentition: Full Pulmonary: Pulmonary: None reported CV/HEM: CV/HEM: None reported : : None reported Hepatic: Comments: liver mets from pancreas GI: GI: None reported Metabolic: Metabolic: Hyperlipidemia and Thyroid Musc/skel: Musc/skel: Lower Back Pain and OA/DJD Neuropsych: Neuropsych: None reported Anesthetic Plan: ASA status: 4 Anesthesia: MAC Risk of > 500 ml blood loss (7ml/kg in children): No Meds/Allergies Current Medications: Current Medications Generic Name Dose Route Start Last Admin Trade Name Freq PRN Reason Stop Dose Admin Sodium Chloride 1,000 mls @ 30 ml s/hr 08/14/19 11:30 08/14/19 11:54 Sodium Chloride 0.9% IV 08/15/19 11:29 30 mls/hr .Q24H MURRAY Administration PFSH Anesthesia PFSH: Social History Smoking and tobacco status: current every day smoker Alcohol intake: current Alcohol intake frequency: 0-2 Drinks per Day Alcohol type: wine Data Anesthesia Cardiac Studies: No Data to Display
--- NOTE | 2019-08-14 12:18 | SC_ITS ---
WS: [id number] C-ARM RADIOGRAPHS CHEST; 3 IMAGES HISTORY: port placement COMPARISON: None available. Intraoperative imaging during Port-A-Cath placement. There is a vascular catheter projecting just to the RIGHT of the midline with tip in distal SVC. SC/C-arm [place] for CVA [id number] IMPRESSION: Intraoperative imaging during Port-A-Cath placement.
[2019-08-14] MEDS: lidocaine 2% INJ 20 mL INJECTION (12:46)
[2019-08-14] MEDS: heparin, porcine 1,000 unit/mL INJ 10 mL 10000 UNIT INJECTION (12:46)
--- NOTE | 2019-08-14 13:23 | P.OP_ITS ---
Operative Report Date of procedure: August 14, 2019 Pre-op Diagnosis: Pancreatic cancer requires Port-A-Cath Post-op diagnosis: same Procedure Done: Right IJ ultrasound-guided insertion of Port-A-Cath PowerPort All ultrasound and fluoroscopic guidance interpretation was done by me through the whole entire procedure Implants: Right upper chest PowerPort Port-A-Cath Surgeon: Willard Conroy Crimping Press Operator: case technician Loida Circulating nurse Rosalva Anesthesia: MAC (hypercil core transformer assembler Param) Estimated blood loss (mL): 5 Condition: stable Disposition: same day Brief History: This is a pleasant 74 years old female patient referred to my practice due to the need for long-term IV access due to her pancreatic cancer . plan of care; After thorough history physical examination and reviewing the chart, I counseled the patient for Port-A-Cath placement, indications, risks including pneumothorax and injury of major vascular structures, benefits, and alternatives were all discussed with the patient, patient understands and is interested to proceed. Informed consent per chart Assurance and education All questions have been answered Procedure: U/S Guided IJ access Patient was identified in the holding area and taken to the operative room and placed in supine position IV propofol was given by the anesthesia provider ,both arms were tucked,Time-out was done verifying the patient's name/date of /planned procedure and destination after the procedure, all were in agreement. SCDs confirmed to be functioning, preoperative antibiotics administered per protocol, and beta fidel protocol was confirmed, appropriate positioning of the patient was done by me. Medications were reviewed to assess for anticoagulant usage. Risks and benefits and prevention of central line associated blood stream infection (CLABSI) were discussed with the patient/CPOA, and a consent was obtained. Monitors were in place and monitored throughout the procedure. All necessary supplies were available prior to start. Hand hygiene was completed prior to starting. Maximum barrier technique was utilized including a sterile gown, sterile gloves with a hat and mask. Site was was prepped with [chlorhexidine] and a full body drape was placed. 5 mL of 2% lidocaine was injected into the skin with a 25 gauge needle. Prep& drape was done under the usual sterile technique, lidocaine 2% was injected at the site of the stick, started by right subclavian vein couple of times but no venous blood was retrieved then I did deviate my attention to the right Internal Juglar vein stick that retrieved venous blood was obtained from the first stick under ultrasound guidance and there was no evidence of intraluminal thrombosis, interpretation was done by me through the whole entire procedure, a guidewire was then threaded and under the guidance of fluoroscopy position was confirmed to be in the IVC and my interpretation, there was no PVC changes, at that point the guidewire was secured to the drapes with a hemostat and the needle was taken out. Attention was then deviated towards creation of a pocket for the port were lidocaine 2% was injected using an 15 blade knife skin incision was created at the right upper Chest ,dissection using the Bovie to create a pocket for the Port-A-Cath to be accommodated, hemostasis was secured, after the port being appropriately flushed it was inserted into the pocket and a tunneler was used to accommodate the catheter of the port cath to be delivered through the incision first created at the site of the stick, yet I had to create a transit incision at the root of the neck at the right side to the patient difficult anatomy , and then I was able to retrieve the catheter at the index site of the stick. At that point under fluoroscopy an estimated length was measured for the catheter and was cut at the designed level, followed by that a dilator with the sheath introduced onto the guidewire the dilator and the wire were retrieved and the catheter of the port was introduced via the sheath where it was peeled off and the catheter maintained to be in the SVC that was confirmed with fluoroscopy, and the fluoroscopy interpretation was done by me throughout the entire procedure. Multiple flushes of the port was done by diluted heparin and I was able to retrieve without difficulty venous blood as well as appropriate flushing was achieved. The port was secured to the fascia with using Prolene sutures, 4-0 Vicryl deep subdermal interrupted sutures, skin was then closed by 4-0 Monocryl as subcu ticular closure. The stick site was closed by 4-0 Monocryl and Dermabond was used followed by dressing. Patient tolerated the procedure well was taken to the recovery area Count was correct at the end of the procedure I was present for the whole entire procedure
[2019-08-14 13:25] VITALS: BP 134/81; PULSE 76; RESP 18; O2SAT 99
--- NOTE | 2019-08-14 13:27 | XRR_ITS ---
PROCEDURE INFORMATION: Exam: XR Chest, 1 View Exam date and time: 08/14/2019 1:40 PM Age: 74 years old Clinical indication: Status post right IJ Port-a-cath placement TECHNIQUE: Imaging protocol: XR of the chest Views: 1 view. COMPARISON: No relevant prior studies available. FINDINGS: Tubes, catheters and devices: There is a right jugular port present with the catheter tip in the superior vena cava. Lungs: No lung consolidation or pulmonary edema. Pleural space: No pleural effusion or pneumothorax. Heart/Mediastinum: The cardiac silhouette is not enlarged. The mediastinal contours are normal. Bones/joints: No acute osseous abnormality. XR/XR chest 1V portable [id number] IMPRESSION: 1. Port catheter tip in the superior vena cava. 2. No pneumothorax.
[2019-08-14 13:29] LABS: Hematocrit 32.2 % (37.0-47.0); Mean Corpuscular HGB Conc 31.1 g/dL (30.0-36.0); Mean Corpuscular Hemoglobin 27.9 pg (28.0-34.0); Mean Corpuscular Volume 89.7 fL (81-99); Mean Platelet Volume 9.5 fL (7.4-10.4); Platelet Count 541 10^3/cmm (130-400); Red Blood Count 3.59 10^6/uL (4.1-5.3); Red Cell Distribution Width 13.7 % (12.1-15.1); White Blood Count 11.9 10^3/uL (4.0-10.0)
[2019-08-14 13:32] VITALS: BP 109/72; PULSE 84; RESP 20; TEMP 36.8; O2SAT 95
[2019-08-14 13:57] LABS: Carcinoembryonic Antigen 113.9 ng/mL (0.0-4.7)
[2019-08-14 14:00] LABS: Absolute Eosinophils 0.1 10^3/cmm (0.0-0.7); Absolute Segmented Neutrophil 9.6 10/cmm (1.6-7.1); Eosinophils 1 %; Lymphocytes 9 %; Monocytes Absolute 1.1 10^3/cmm (0.1-0.6); Segmented Neutrophils 81 %; Total Cells Counted 100 (0-100)
[2019-08-14 14:01] LABS: Platelet Estimate Increased (Normal)
--- NOTE | 2019-08-14 14:02 | PC.NURSE ---
PT GIVEN POWER PORT DISCHARGE KIT . INSTRUCTED TO BRING WITH HER TO VISIT AND PROCEDURE.
[2019-08-14 14:08] LABS: Alanine Aminotransferase 16 U/L (0-33); Albumin Level 3.4 g/dL (3.5-5.2); Alkaline Phosphatase 210 IU/L (35-105); Anion Gap 15.8 (5-19); Aspartate Amino Transferase 33 U/L (0-32); Blood Urea Nitrogen 10 mg/dL (8-23); Calcium 9.3 mg/dL (8.5-10.5); Carbon Dioxide 27 mmol/L (22-29); Chloride 94 mmol/L (98-107); Globulin 4.7 g/dL (1.3-4.6); Glucose 110 mg/dL (65-115); Osmolality Calculated 273 mOsm/kg (285-295); Potassium 3.8 mmol/L (3.5-5.1); Sodium 133 mmol/L (136-145); Total Bilirubin 0.4 mg/dL (0.15-1.2); Total Protein 8.1 g/dL (6.6-8.7)
[2019-08-14 14:50] LABS: Cancer Antigen 19 9 6445 U/mL (0-35)
== END 2019-08-14 14:09 | disposition home or self-care (01) ==
PROVIDERS: Internal Medicine Hematology & Oncology; Family Provider Family Medicine; PCP Family Medicine; Visit Provider Surgery
PROC: (CPT 36556; principal; 2019-08-14 12:30)
DX: C25.9 Malignant neoplasm of pancreas, unspecified (principal); F17.210 Nicotine dependence, cigarettes, uncomplicated; E78.5 Hyperlipidemia, unspecified; M19.90 Unspecified osteoarthritis, unspecified site; Z79.82 Long term (current) use of aspirin; Z82.49 Family history of ischemic heart disease and other diseases of the circulatory system; Z83.3 Family history of diabetes mellitus; Z82.3 Family history of stroke
CPT/HCPCS: 36556; 12345; 36415; 71045; 77001; 80053; 82378; 85007; 85027; 86301; 96365; C1788; J0690; J1644; J2001; J2704; J3010; J7030

== ENCOUNTER 2019-08-22 06:43 | Outpatient (RCR) | payer MEDICARE, SELFPAY ==
[2019-08-16] MEDS: dextrose 5 % 500 ML 75 ML (09:00)
[2019-08-16] MEDS: HYDROcodone-acetaminophen 10-325 mg Tablet 1 TAB PO (11:22)
[2019-08-22 13:49] LABS: Basophils # 0.1 10^3/uL (0.0-0.1); Basophils % 0.5 %; Eosinophils # 0.4 10^3/uL (0.0-0.8); Eosinophils % 2.4 %; Hemoglobin 8.9 g/dL (11.5-15.3); Lymphocytes # 1.4 10^3/uL (0.8-4.8); Lymphocytes % 7.9 %; Mean Corpuscular HGB Conc 31.8 g/dL (30.0-36.0); Mean Corpuscular Hemoglobin 28.3 pg (28.0-34.0); Mean Corpuscular Volume 88.9 fL (81-99); Mean Platelet Volume 9.7 fL (7.4-10.4); Monocytes # 0.8 10^3/uL (0.2-0.9); Monocytes % 4.7 %; Neutrophils # 14.7 10^3/uL (1.8-7.7); Neutrophils % 83.2 %; Nucleated Red Blood Cells % 0 %; Platelet Count 229 10^3/cmm (130-400); Red Blood Count 3.15 10^6/uL (4.1-5.3); Red Cell Distribution Width 14.1 % (12.1-15.1); White Blood Count 17.6 10^3/uL (4.0-10.0)
[2019-08-22 14:00] LABS: Alanine Aminotransferase 50 U/L (0-33); Alkaline Phosphatase 345 IU/L (35-105); Anion Gap 16.6 (5-19); Aspartate Amino Transferase 59 U/L (0-32); Blood Urea Nitrogen 11 mg/dL (8-23); Calcium 8.8 mg/dL (8.5-10.5); Carbon Dioxide 25 mmol/L (22-29); Chloride 93 mmol/L (98-107); Globulin 3.6 g/dL (1.3-4.6); Glucose 119 mg/dL (65-115); Osmolality Calculated 269 mOsm/kg (285-295); Potassium 3.6 mmol/L (3.5-5.1); Sodium 131 mmol/L (136-145); Total Bilirubin 0.5 mg/dL (0.15-1.2); Total Protein 6.6 g/dL (6.6-8.7)
[2019-08-22 14:25] LABS: Slide Review Slide Review Perform
== END 2019-08-22 23:59 | disposition home or self-care (01) ==
LOC: ONCMED 06:43
PROVIDERS: Family Provider Family Medicine; PCP Family Medicine; Visit Provider Internal Medicine Hematology & Oncology
DX: Z51.11 Encounter for antineoplastic chemotherapy (principal); C25.2 Malignant neoplasm of tail of pancreas; D70.1 Agranulocytosis secondary to cancer chemotherapy; T45.1X5A Adverse effect of antineoplastic and immunosuppressive drugs, initial encounter
CPT/HCPCS: 36591; 80053; 85025; 96367; 96368; 96372; 96375; 96413; 96415; 96416; 96417; 96523; J0461; J0640; J1100; J1453; J2469; J2505; J9206; J9263

== ENCOUNTER 2019-09-15 06:46 | Outpatient (RCR) | payer MEDICARE, SELFPAY ==
--- NOTE | 2019-08-23 11:23 | ONC FU_ITS ---
Dr. Moreno follow up note Patient: Anyi Bone Unit #: [id number]: [id number] Dicatated By: Thomas Moreno M.D.Date of Visit:Aug 23, 2019 Onc Med Follow-up/Prog Note History of Present Illness: Mrs. Wai Bone, 74-year-old female who was admitted to [facility] on 07/10/2019 with right upper quadrant abdominal pain, pelvic sonogram showed large midline minimally complex cystic mass measuring 12.4 x 9.7 cm far to represent cystoadenoma or neoplastic cystic mass related to the ovary. A CT scan of abdomen pelvis was done which showed pancreatic tail mass measuring 2.7 x 4.9 cm highly suggestive of primary malignancy having invaded and occluded the splenic vein with concern for bone pain vision of splenic artery. And multiple liver masses consistent with metastatic disease and large pelvic mass having density suggestive of ovarian cyst but cystoadenoma not excluded. An ultrasound guided liver biopsy was performed on 07/17/2019 and pathology revealed moderately differentiated adenocarcinoma. Immunohistochemistry was positive for CK 7, vimentin, CA 19???9 NICOLAS. Focally positive for CEA. Patient denies any history of jaundice patient denies any history of melena or hematochezia patient denies any history of hemoptysis or hematemesis patient denies any history of vaginal bleeding. Patient denies any history of weight loss. She is still having right upper quadrant pain but being controlled by hydrocodone 10/325 and she take it 2- 3 times a day. And also complaining of off and on constipation. Patient is an excellent health otherwise, possible medical history significant for hypothyroidism, hyperlipidemia and she has history of hysterectomy in the past Smoke about half pack a day the last 30 years, denies alcohol use. Started on modified dose for folfirinox every 2 weeks on 08/16/2019 Came for follow-up, denies any specific complaint except generalized weakness fatigue and, episode of mild nausea but no vomiting no diarrhea or constipation, no melena or hematochezia, no jaundice, no skin rash, no mouth sores. Tolerated first cycle of modified dose folfirinox well Medications: Aspirin 1 Tablet (of 81 mg) Oral daily, Calcium 1 Capsule (of 250 mg) Oral daily, Co Q 10 1 Capsule (of 100 mg) Oral daily, HYDROcodone-Acetaminophen 1 Tablet (of 10-325 mg) Oral q 5 hours PRN, Levothyroxine Sodium 1 Tablet (of 75 mcg) Oral daily, Lipitor 1 Tablet (of 80 mg) Oral daily, MiraLax Powder Oral PRN, Multiple Vitamins/Womens Tablet Oral, Ondansetron HCl 1 Tablet (of 4 mg) Oral q 6 hours PRN Allergies: No Known Allergies. Review of Systems: Review of Systems is not available for this patient. Vital Signs: Performed on Aug 23, 2019 08:30 Height - 59.00 in Weight - 154.0 lbs (LOW) BSA - 1.65 sq.m BMI - 31.10 (HIGH) Temperature - 98.1 F (LOW) Pulse - 97 /min Respiration - 20 /min BP - 132/72 mm(hg) O2 Sat - 97 % Pain - 0 Performance Status: 1 - No physically strenuous activity, but ambulatory and able to carry out light or sedentary work (e.g. office work, light house work). (ECOG) Physical Examination: ENMT - . No oral exudates, ulcers, masses, thrush or mucositis. Oropharynx clear. Tongue normal, Respiratory - Lungs are clear to auscultation without rhonchi or wheezing, Cardiovascular - Regular rate and rhythm of heart, Abdomen - Non-tender, non-distended, Good bowel sounds. No guarding or rebound tenderness. No pulsatile masses, Extremities - 1+ edema bilaterally. Lab/Imaging: Test performed on Aug 16, 2019 08:57 Glucose 110 mg/dL BUN 10 mg/dL Creatinine 0.5 mg/dL Cr Clearance (Est) 112.23 mL/min Sodium 133 mmol/L Potassium 3.8 mmol/L Chloride 94 mmol/L CO2 27 mmol/L Calcium 9.3 mg/dL Protein, Total 8.1 g/dL Albumin 3.4 g/dL Globulin 4.7 g/dL Bilirubin, Total 0.4 mg/dL Alkaline Phosphatase 210 IU/L AST (SGOT) 33 IU/L ALT (SGPT) 16 IU/L WBC 11.9 10^9/L RBC 3.59 10^12/L HGB 10.0 g/dL HCT 32.2 % MCV 89.7 fl MCH 27.9 pg MCHC 31.1 g/dL RDW 13.7 % Platelet Count 541 10^9/L MPV 9.5 fL Monocytes 1.1 10^9/L Eosinophils 0.1 10^9/L Manual Lymphocytes 9 % Manual Monocytes 9.0 % Manual Eosinophils 1 % CA 19-9 6445 Units/mL CEA 113.9 ng/mL Impression: Moderately differentiated adenocarcinoma per ultrasound-guided liver biopsy done on 07/17/2019, immunohistochemistry positive for CK 7, vimentin, high molecular weight CK, CA 19???9, NICOLAS. CT scan of abdomen pelvis done on 07/10/2019 showed anterior tibial mass measuring 2.7 x 4.9 cm highly suggestive of primary malignancy and having invaded and occluded the splenic vein, concern for developing invasion of splenic artery. Multiple liver masses consistent with metastatic disease. Large pelvic mass having density suggestive of ovarian cyst, but cystoadenoma not excluded considering rim calcification in the mass, status post hysterectomy Sclerotic focus in T10, questionable second bone island considering possible bone island in the left superior acetabulum. History of hypothyroidism History of hyperlipidemia Plan: Discussed with patient regarding her labs white blood count 17.6 hemoglobin 8.9 hematocrit 28 platelets 229,000 CMP within normal limit except sodium 131, ALT 50 compared to 16 last time and AST 59 compared to 33 prior to the treatment and alkaline phosphatase 345, CA 19???9 6445, CEA 113.9 Clinically, patient is doing reasonably well, tolerated first modified dose of folfirinox well but with expected side effects e.g. progressive anemia, mild nausea and now with abnormal LFTs. We will repeat her CBC CMP and CA 125(patient has ovarian cyst) in a week if repeat lab shows persistent abnormal LFTs then will consider further reduction in her chemotherapy dose to minimize chemotherapy induced toxicity and if her hemoglobin dropped below 8 g, we will consider blood transfusion and any melena workup. X Mild hyponatremia, patient is consuming excessive free water, she was advised cutdown free water intake, will follow sodium. Signed By: Thomas Moreno M.D. <<Signature on File>>
[2019-08-29 17:00] LABS: Basophils # 0.1 10^3/uL (0.0-0.1); Basophils % 0.3 %; Eosinophils # 0.5 10^3/uL (0.0-0.8); Eosinophils % 2.8 %; Hematocrit 29.5 % (37.0-47.0); Hemoglobin 9.3 g/dL (11.5-15.3); Lymphocytes # 2.3 10^3/uL (0.8-4.8); Lymphocytes % 14.3 %; Mean Corpuscular HGB Conc 31.5 g/dL (30.0-36.0); Mean Corpuscular Hemoglobin 27.8 pg (28.0-34.0); Mean Corpuscular Volume 88.1 fL (81-99); Mean Platelet Volume 9.4 fL (7.4-10.4); Monocytes # 1.3 10^3/uL (0.2-0.9); Monocytes % 8.3 %; Neutrophils # 11.4 10^3/uL (1.8-7.7); Neutrophils % 71.7 %; Nucleated Red Blood Cells % 0 %; Platelet Count 661 10^3/cmm (130-400); Red Blood Count 3.35 10^6/uL (4.1-5.3); Red Cell Distribution Width 14.8 % (12.1-15.1); White Blood Count 15.9 10^3/uL (4.0-10.0)
[2019-08-29 22:47] LABS: Alanine Aminotransferase 35 U/L (0-33); Albumin Level 3.1 g/dL (3.5-5.2); Alkaline Phosphatase 476 IU/L (35-105); Anion Gap 19.4 (5-19); Aspartate Amino Transferase 50 U/L (0-32); Blood Urea Nitrogen 9 mg/dL (8-23); Calcium 9.2 mg/dL (8.5-10.5); Carbon Dioxide 27 mmol/L (22-29); Chloride 87 mmol/L (98-107); Globulin 4.1 g/dL (1.3-4.6); Glucose 70 mg/dL (65-115); Osmolality Calculated 264 mOsm/kg (285-295); Potassium 3.4 mmol/L (3.5-5.1); Sodium 130 mmol/L (136-145); Total Bilirubin 0.4 mg/dL (0.15-1.2); Total Protein 7.2 g/dL (6.6-8.7)
[2019-08-30] MEDS: dextrose 5% 250 ML 75 ML (08:40)
[2019-08-30] MEDS: dextrose 5% 250 ML 75 ML IV (10:35)
[2019-09-11 15:35] LABS: Basophils # 0.2 10^3/uL (0.0-0.1); Basophils % 0.7 %; Eosinophils # 0.4 10^3/uL (0.0-0.8); Eosinophils % 1.3 %; Hematocrit 35.1 % (37.0-47.0); Hemoglobin 10.8 g/dL (11.5-15.3); Lymphocytes # 3.3 10^3/uL (0.8-4.8); Lymphocytes % 10.6 %; Mean Corpuscular HGB Conc 30.8 g/dL (30.0-36.0); Mean Corpuscular Hemoglobin 26.9 pg (28.0-34.0); Mean Corpuscular Volume 87.5 fL (81-99); Mean Platelet Volume 9.9 fL (7.4-10.4); Monocytes # 1.7 10^3/uL (0.2-0.9); Monocytes % 5.5 %; Neutrophils # 21.1 10^3/uL (1.8-7.7); Neutrophils % 67.6 %; Nucleated Red Blood Cells # 0.1 /100WBC; Nucleated Red Blood Cells % 0.2 %; Platelet Count 722 10^3/cmm (130-400); Red Blood Count 4.01 10^6/uL (4.1-5.3); Red Cell Distribution Width 16.4 % (12.1-15.1)
[2019-09-11 15:55] LABS: White Blood Count 31.3 10^3/uL (4.0-10.0)
[2019-09-11 16:03] LABS: Slide Review Slide Review Perform
[2019-09-11 16:52] LABS: Alanine Aminotransferase 23 U/L (0-33); Albumin Level 3.7 g/dL (3.5-5.2); Alkaline Phosphatase 583 IU/L (35-105); Anion Gap 21.5 (5-19); Aspartate Amino Transferase 40 U/L (0-32); Blood Urea Nitrogen 8 mg/dL (8-23); Calcium 9.6 mg/dL (8.5-10.5); Carbon Dioxide 28 mmol/L (22-29); Chloride 89 mmol/L (98-107); Globulin 4.5 g/dL (1.3-4.6); Glucose 96 mg/dL (65-115); Osmolality Calculated 276 mOsm/kg (285-295); Potassium 3.5 mmol/L (3.5-5.1); Sodium 135 mmol/L (136-145); Total Bilirubin 0.3 mg/dL (0.15-1.2); Total Protein 8.2 g/dL (6.6-8.7)
--- NOTE | 2019-09-12 14:26 | ONC FU_ITS ---
Dr. Moreno follow up note Patient: Anyi Bone Unit #: [id number]: 1945 Dicatated By: Thomas Moreno M.D.Date of Visit:Sep 12, 2019 Onc Med Follow-up/Prog Note History of Present Illness: Mrs. Wai Bone, 74-year-old female who was admitted to [facility] on 07/10/2019 with right upper quadrant abdominal pain, pelvic sonogram showed large midline minimally complex cystic mass measuring 12.4 x 9.7 cm far to represent cystoadenoma or neoplastic cystic mass related to the ovary. A CT scan of abdomen pelvis was done which showed pancreatic tail mass measuring 2.7 x 4.9 cm highly suggestive of primary malignancy having invaded and occluded the splenic vein with concern for bone pain vision of splenic artery. And multiple liver masses consistent with metastatic disease and large pelvic mass having density suggestive of ovarian cyst but cystoadenoma not excluded. An ultrasound guided liver biopsy was performed on 07/17/2019 and pathology revealed moderately differentiated adenocarcinoma. Immunohistochemistry was positive for CK 7, vimentin, CA 19???9 NICOLAS. Focally positive for CEA. Patient denies any history of jaundice patient denies any history of melena or hematochezia patient denies any history of hemoptysis or hematemesis patient denies any history of vaginal bleeding. Patient denies any history of weight loss. She is still having right upper quadrant pain but being controlled by hydrocodone 10/325 and she take it 2- 3 times a day. And also complaining of off and on constipation. Patient is an excellent health otherwise, possible medical history significant for hypothyroidism, hyperlipidemia and she has history of hysterectomy in the past Smoke about half pack a day the last 30 years, denies alcohol use. Started on modified dose for folfirinox every 2 weeks on 08/16/2019 Evaluated via telephone, patient denies any specific complaints except mild bipedal edema. Otherwise no fever or chills, no nausea or vomiting, no diarrhea constipation, no jaundice, no mouth sores, tolerating systemic chemotherapy with folfirinox well Medications: Aspirin 1 Tablet (of 81 mg) Oral daily, Calcium 1 Capsule (of 250 mg) Oral daily, Co Q 10 1 Capsule (of 100 mg) Oral daily, HYDROcodone-Acetaminophen 1 Tablet (of 10-325 mg) Oral q 5 hours PRN, Levothyroxine Sodium 1 Tablet (of 75 mcg) Oral daily, Lipitor 1 Tablet (of 80 mg) Oral daily, MiraLax Powder Oral PRN, Multiple Vitamins/Womens Tablet Oral, Ondansetron HCl 1 Tablet (of 4 mg) Oral q 6 hours PRN Allergies: No Known Allergies. Review of Systems: Review of Systems is not available for this patient. Vital Signs: Vitals are not available for this patient. Performance Status: 1 - No physically strenuous activity, but ambulatory and able to carry out light or sedentary work (e.g. office work, light house work). (ECOG) Physical Examination: ENMT - denies any mouth sores or thrush, Respiratory - denies any shortness of breath or wheezing, Cardiovascular - denies any tachycardia or palpitation, Abdomen - denies any abdominal pain or fullness, Extremities - complaining of trace bipedal edema. Lab/Imaging: Test performed on Aug 22, 2019 13:32 Sodium 131 mmol/L Potassium 3.6 mmol/L Chloride 93 mmol/L CO2 25 mmol/L Anion Gap 16.6 BUN 11 mg/dL Creatinine 0.5 mg/dL Cr Clearance (Est) 112.2300 mL/min Glucose 119 mg/dL Calcium 8.8 mg/dL Protein, Total 6.6 g/dL Albumin 3.0 g/dL Globulin 3.6 g/dL Bilirubin, Total 0.5 mg/dL ALT (SGPT) 50 U/L AST (SGOT) 59 U/L Alkaline Phosphatase 345 IU/L WBC 17.6 10 3/uL RBC 3.15 10 6/uL HGB 8.9 g/dL HCT 28.0 % MCV 88.9 fL MCH 28.3 pg MCHC 31.8 g/dL RDW 14.1 % Platelet Count 229 10 3/cmm MPV 9.7 fL Neutrophils 14.7 10 3/uL Lymphocytes 1.4 10 3/uL Monocytes 0.8 10 3/uL Eosinophils 0.4 10 3/uL Basophils 0.1 10 3/uL Neutrophil % 83.2 % Lymphocyte % 7.9 % Monocyte % 4.7 % Eosinophil % 2.4 % Basophils % 0.5 % CBC Slide Review Slide Review Perform SLIDE REVIEW AGREES WITH AUTO DIFF. Test performed on Aug 16, 2019 08:57 Manual Lymphocytes 9 % Manual Monocytes 9.0 % Manual Eosinophils 1 % CA 19-9 6445 Units/mL CEA 113.9 ng/mL Impression: Moderately differentiated adenocarcinoma per ultrasound-guided liver biopsy done on 07/17/2019, immunohistochemistry positive for CK 7, vimentin, high molecular weight CK, CA 19???9, NICOLAS. CT scan of abdomen pelvis done on 07/10/2019 showed anterior tibial mass measuring 2.7 x 4.9 cm highly suggestive of primary malignancy and having invaded and occluded the splenic vein, concern for developing invasion of splenic artery. Multiple liver masses consistent with metastatic disease. Large pelvic mass having density suggestive of ovarian cyst, but cystoadenoma not excluded considering rim calcification in the mass, status post hysterectomy Sclerotic focus in T10, questionable second bone island considering possible bone island in the left superior acetabulum. History of hypothyroidism History of hyperlipidemia Plan: Discussed with patient via telephone regarding her labs white blood count 31.3 hemoglobin 10.8, hematocrit 36.1 platelets 722,000 CMP within normal limits CA 19???9 is pending Clinically, patient is doing well tolerating systemic chemotherapy with folfirinox well, but with expected side effects. Her follow-up lab workup looks reasonable, we'll consider next dose of biweekly folfirinox tomorrow. As far as leukocytosis concern probably due to Neulasta given on 09/01/2019 to prevent chemotherapy-induced neutropenia/leukopenia. Mild bipedal edema probably due to excessive fluid intake, patient take about 1-1/2 to 2 L water daily. Patient was advised to cut down on her free water intake as her previous lab workup showed mild dilutional hyponatremia We will repeat her CBC and CMP in 2 weeks if reasonable we'll continue with systemic chemotherapy with folfirinox and consider repeating her CT PET scan after 6 doses. Signed By: Thomas Moreno M.D. <<Signature on File>>
[2019-09-13] MEDS: dextrose 5% 250 ML 75 ML IV (08:25)
[2019-09-13 12:25] LABS: Cancer Antigen 19 9 7439 U/mL (0-35)
== END 2019-09-21 23:59 | disposition home or self-care (01) ==
LOC: ONCMED 06:46
PROVIDERS: Family Provider Family Medicine; PCP Family Medicine; Visit Provider Internal Medicine Hematology & Oncology
DX: Z51.11 Encounter for antineoplastic chemotherapy (principal); C25.2 Malignant neoplasm of tail of pancreas; C78.7 Secondary malignant neoplasm of liver and intrahepatic bile duct; E03.9 Hypothyroidism, unspecified; E78.5 Hyperlipidemia, unspecified; E87.1 Hypo-osmolality and hyponatremia; D70.1 Agranulocytosis secondary to cancer chemotherapy; T45.1X5A Adverse effect of antineoplastic and immunosuppressive drugs, initial encounter
CPT/HCPCS: 36415; 80053; 85025; 86301; 96367; 96368; 96372; 96375; 96413; 96415; 96416; 96523; 99214; J0461; J0640; J1100; J1453; J2469; J2505; J9206; J9263

== ENCOUNTER 2019-10-18 13:30 | Outpatient (RCR) | payer MEDICARE, SELFPAY ==
[2019-09-25 13:09] LABS: Hemoglobin 10.2 g/dL (11.5-15.3); Mean Corpuscular HGB Conc 30.9 g/dL (30.0-36.0); Mean Corpuscular Volume 90.7 fL (81-99); Mean Platelet Volume 9.7 fL (7.4-10.4); Nucleated Red Blood Cells # 0.1 /100WBC; Nucleated Red Blood Cells % 0.2 %; Platelet Count 544 10^3/cmm (130-400); Red Blood Count 3.64 10^6/uL (4.1-5.3); Red Cell Distribution Width 19.4 % (12.1-15.1); White Blood Count 29.3 10^3/uL (4.0-10.0)
[2019-09-25 13:12] LABS: Alanine Aminotransferase 14 U/L (0-33); Albumin Level 3.7 g/dL (3.5-5.2); Alkaline Phosphatase 629 IU/L (35-105); Anion Gap 19.7 (5-19); Aspartate Amino Transferase 29 U/L (0-32); Blood Urea Nitrogen 10 mg/dL (8-23); Calcium 9.2 mg/dL (8.5-10.5); Carbon Dioxide 25 mmol/L (22-29); Chloride 96 mmol/L (98-107); Globulin 3.9 g/dL (1.3-4.6); Glucose 126 mg/dL (65-115); Osmolality Calculated 282 mOsm/kg (285-295); Potassium 3.7 mmol/L (3.5-5.1); Sodium 137 mmol/L (136-145); Total Bilirubin 0.2 mg/dL (0.15-1.2); Total Protein 7.6 g/dL (6.6-8.7)
[2019-09-25 14:34] LABS: Slide Review Slide Review Perform
[2019-09-25 14:38] LABS: Absolute Segmented Neutrophil 23.1 10/cmm (1.6-7.1); Band Neutrophils Absolute 3.2 10^3/cmm (0.0-1.2); Lymphocytes 3 %; Monocytes Absolute 0.9 10^3/cmm (0.1-0.6); Segmented Neutrophils 79 %; Total Cells Counted 100 (0-100)
[2019-09-25 14:39] LABS: Platelet Estimate Increased (Normal)
[2019-09-25 14:40] LABS: Anisocytosis 2+; Macrocytosis 1+; Microcytosis 1+; Polychromasia 2+
--- NOTE | 2019-09-26 18:19 | ONC FU_ITS ---
Dr. Moreno follow up note Patient: Anyi Bone Unit #: [id number]: [id number] Dicatated By: Thomas Moreno M.D.Date of Visit:September 26, 2019 Telehealth Progress Note The patient has been informed that the visit may not be secure and acknowledged the information. I have explained the option of participating in a telephone or video visit during the [facility]- public health emergency to the patient. After being given an opportunity to ask questions about and discuss this type of visit, the patient verbally consented to proceeding with the telephone/video visit. the patient understands that this service replaces an office visit and they may be billed and /or responsible for any applicable copayments History of Present Illness: Mrs. Wai Bone, 74-year-old female who was admitted to [facility] on 07/10/2019 with right upper quadrant abdominal pain, pelvic sonogram showed large midline minimally complex cystic mass measuring 12.4 x 9.7 cm far to represent cystoadenoma or neoplastic cystic mass related to the ovary. A CT scan of abdomen pelvis was done which showed pancreatic tail mass measuring 2.7 x 4.9 cm highly suggestive of primary malignancy having invaded and occluded the splenic vein with concern for bone pain vision of splenic artery. And multiple liver masses consistent with metastatic disease and large pelvic mass having density suggestive of ovarian cyst but cystoadenoma not excluded. An ultrasound guided liver biopsy was performed on 07/17/2019 and pathology revealed moderately differentiated adenocarcinoma. Immunohistochemistry was positive for CK 7, vimentin, CA 19???9 NICOLAS. Focally positive for CEA. Patient denies any history of jaundice patient denies any history of melena or hematochezia patient denies any history of hemoptysis or hematemesis patient denies any history of vaginal bleeding. Patient denies any history of weight loss. She is still having right upper quadrant pain but being controlled by hydrocodone 10/325 and she take it 2- 3 times a day. And also complaining of off and on constipation. Patient is an excellent health otherwise, possible medical history significant for hypothyroidism, hyperlipidemia and she has history of hysterectomy in the past Smoke about half pack a day the last 30 years, denies alcohol use. Started on modified dose for folfirinox every 2 weeks on 08/16/2019 Evaluated via telemedicine, patient denies any specific complaints, no fever or chills, no nausea or vomiting, no diarrhea constipation, no jaundice, right upper quadrant pain has almost resolved now she can lay down comfortably. No diarrhea constipation, tolerating systemic chemotherapy with folfirinox well Medications: Aspirin 1 Tablet (of 81 mg) Oral daily, Calcium 1 Capsule (of 250 mg) Oral daily, Co Q 10 1 Capsule (of 100 mg) Oral daily, HYDROcodone-Acetaminophen 1 Tablet (of 10-325 mg) Oral q 5 hours PRN, Levothyroxine Sodium 1 Tablet (of 75 mcg) Oral daily, Lipitor 1 Tablet (of 80 mg) Oral daily, MiraLax Powder Oral PRN, Multiple Vitamins/Womens Tablet Oral, Ondansetron HCl 1 Tablet (of 4 mg) Oral q 6 hours PRN Allergies: No Known Allergies. Review of Systems: Review of Systems is not available for this patient. Vital Signs: Vitals are not available for this patient. Performance Status: 1 - No physically strenuous activity, but ambulatory and able to carry out light or sedentary work (e.g. office work, light house work). (ECOG) Physical Examination: ENMT - denies any mouth sores or thrush or jaundice, Respiratory - denies any shortness of breath or wheezing, Cardiovascular - denies any tachycardia or palpitation, Abdomen - denies any abdominal pain or fullness, Extremities - complaining of trace edema but improving. Lab/Imaging: Test performed on September 25, 2019 09:00 Sodium 137 mmol/L Potassium 3.7 mmol/L Chloride 96 mmol/L CO2 25 mmol/L Anion Gap 19.7 BUN 10 mg/dL Creatinine 0.6 mg/dL Cr Clearance (Est) 93.5200 mL/min Glucose 126 mg/dL Calcium 9.2 mg/dL Protein, Total 7.6 g/dL Albumin 3.7 g/dL Globulin 3.9 g/dL Bilirubin, Total 0.2 mg/dL ALT (SGPT) 14 U/L AST (SGOT) 29 U/L Alkaline Phosphatase 629 IU/L WBC 29.3 10 3/uL Manual Bands % 11.0 % RBC 3.64 10 6/uL HGB 10.2 g/dL Manual Lymphs % 3 % HCT 33.0 % Manual Monos % 3.0 % MCV 90.7 fL MCH 28.0 pg MCHC 30.9 g/dL Metamyelocytes % 2.0 % RDW 19.4 % Myelocytes % 2.0 % Platelet Count 544 10 3/cmm MPV 9.7 fL CBC Slide Review Slide Review Perform Polychromasia 2+ Anisocytosis 2+ Macrocytosis 1+ Microcytosis 1+ Manual Bands Abs 3.2 10 3/cmm Manual Monocytes Abs 0.9 10 3/cmm Test performed on Sep 12, 2019 13:55 CA 19-9 7439 U/mL Test performed on Sep 11, 2019 13:55 Neutrophils 21.1 10 3/uL Lymphocytes 3.3 10 3/uL Monocytes 1.7 10 3/uL Eosinophils 0.4 10 3/uL Basophils 0.2 10 3/uL Neutrophil % 67.6 % Lymphocyte % 10.6 % Monocyte % 5.5 % Eosinophil % 1.3 % Basophils % 0.7 % Test performed on Aug 16, 2019 08:57 Manual Eosinophils 1 % CEA 113.9 ng/mL Impression: Moderately differentiated adenocarcinoma per ultrasound-guided liver biopsy done on 07/17/2019, immunohistochemistry positive for CK 7, vimentin, high molecular weight CK, CA 19???9, NICLOAS. CT scan of abdomen pelvis done on 07/10/2019 showed anterior tibial mass measuring 2.7 x 4.9 cm highly suggestive of primary malignancy and having invaded and occluded the splenic vein, concern for developing invasion of splenic artery. Multiple liver masses consistent with metastatic disease. Large pelvic mass having density suggestive of ovarian cyst, but cystoadenoma not excluded considering rim calcification in the mass, status post hysterectomy Sclerotic focus in T10, questionable second bone island considering possible bone island in the left superior acetabulum. History of hypothyroidism History of hyperlipidemia Plan: Discussed with patient via telemedicine regarding her labs white blood count 29.3 hemoglobin 10.2 g hematocrit 33 platelets 544,000 CMP within normal limits except alkaline phosphatase 629 and tumor marker CA 19???9 is 32,228 compared to 7439 on 09/12/2019 Clinically, patient is doing well with significant improvement in her symptoms and pain and tolerating systemic chemotherapy with folfirinox well. But her tumor marker CA 19???9 was checked 09/12/2019 and it was elevated and was repeated to confirm but somehow lab result came back unbelievably high e.g. 32,228. Overall patient is feeling better, quality of life is improving, tolerating systemic chemotherapy well and other rest of level workup shows improvement in her liver function test. Increase in tumor marker is not consistent with improvement in patient's symptoms and rest of level workup but could be due to disease progression we will consider right upper quadrant sonogram with special attention to liver lesion and an Mass in the meantime we'll proceed with next schedule dose of chemotherapy with folfirinox in the morning and if right upper quadrant sonogram shows disease progression then will consider CT PET scan to confirm and if it does then will consider changing her systemic therapy. Patient return to clinic in the morning for her chemotherapy and then to clinic in 1 week with CBC CMP , CA 19???9 and right upper quadrant sonogram with special attention to liver and pancreas. Signed By: Thomas Moreno M.D. <<Signature on File>>
[2019-09-27] MEDS: dextrose 5% 250 ML 75 ML IV (08:10)
[2019-09-27] MEDS: dextrose 5% 250 ML 75 ML (08:10)
--- NOTE | 2019-10-03 | US_ITS ---
WS: [id number] RIGHT UPPER QUADRANT ULTRASOUND HISTORY: PANCREATIC CANCER, ELEVATED TUMOR MARKER COMPARISON: 07/17/2019 Liver: 14.7 cm in length. Liver is normal size. There is a hypoechoic mass towards the diaphragmatic surface measuring 3.8 x 6.7 x 6.2 cm. Mass has been previously described and biopsied. There are concha tional smaller metastatic nodules throughout the liver. Largest mass is increased in size. Gallbladder: Normally distended gallbladder with no stones or wall thickening. CBD: 0.5 cm Pancreas: Hypoechoic area in the pancreatic tail measures 2.6 x 4.7 x 2.0 cm. Patient known pancreati c neoplasm which is not significantly changed in size as compared to 07/10/2019. Right kidney: 8.8 cm in length. Normal echogenicity with no mass or hydronephrosis. Aorta and IVC: Unremarkable. No ascites. US/US gall bladder 64199 IMPRESSION: 1. Known metastatic disease within the liver. The largest lesion has increased in size now measuring 3.8 x 6.7 x 6.2 cm. 2. Stable pancreatic tail mass measuring 2.6 x 4.7 x 2.0 cm.
[2019-10-03 09:54] LABS: Basophils # 0.2 10^3/uL (0.0-0.1); Basophils % 0.4 %; Eosinophils # 0.2 10^3/uL (0.0-0.8); Eosinophils % 0.5 %; Hematocrit 30.6 % (37.0-47.0); Hemoglobin 9.4 g/dL (11.5-15.3); Lymphocytes # 1.8 10^3/uL (0.8-4.8); Lymphocytes % 5.1 %; Mean Corpuscular HGB Conc 30.7 g/dL (30.0-36.0); Mean Corpuscular Hemoglobin 27.4 pg (28.0-34.0); Mean Corpuscular Volume 89.2 fL (81-99); Mean Platelet Volume 9.7 fL (7.4-10.4); Monocytes # 0.7 10^3/uL (0.2-0.9); Monocytes % 1.8 %; Neutrophils # 31.9 10^3/uL (1.8-7.7); Neutrophils % 88.9 %; Nucleated Red Blood Cells % 0 %; Platelet Count 233 10^3/cmm (130-400); Red Blood Count 3.43 10^6/uL (4.1-5.3); Red Cell Distribution Width 19.5 % (12.1-15.1)
[2019-10-03 10:09] LABS: Alanine Aminotransferase 16 U/L (0-33); Albumin Level 3.9 g/dL (3.5-5.2); Alkaline Phosphatase 543 IU/L (35-105); Anion Gap 18.2 (5-19); Aspartate Amino Transferase 23 U/L (0-32); Blood Urea Nitrogen 12 mg/dL (8-23); Calcium 9.3 mg/dL (8.5-10.5); Carbon Dioxide 25 mmol/L (22-29); Chloride 101 mmol/L (98-107); Globulin 3.2 g/dL (1.3-4.6); Glucose 112 mg/dL (65-115); Osmolality Calculated 285 mOsm/kg (285-295); Potassium 5.2 mmol/L (3.5-5.1); Sodium 139 mmol/L (136-145); Total Bilirubin 0.3 mg/dL (0.15-1.2); Total Protein 7.1 g/dL (6.6-8.7)
[2019-10-03 10:27] LABS: White Blood Count 35.9 10^3/uL (4.0-10.0)
[2019-10-04 08:45] LABS: Cancer Antigen 19 9 26898 U/mL (0-35)
--- NOTE | 2019-10-05 17:38 | ONC FU_ITS ---
Dr. Moreno follow up note Patient: Anyi Bone Unit #: [id number]: [id number] Dicatated By: Thomas Moreno M.D.Date of Visit:October 05, 2019 Onc Med Follow-up/Prog Note History of Present Illness: Mrs. Wai Bone, 74-year-old female who was admitted to [facility] on 07/10/2019 with right upper quadrant abdominal pain, pelvic sonogram showed large midline minimally complex cystic mass measuring 12.4 x 9.7 cm far to represent cystoadenoma or neoplastic cystic mass related to the ovary. A CT scan of abdomen pelvis was done which showed pancreatic tail mass measuring 2.7 x 4.9 cm highly suggestive of primary malignancy having invaded and occluded the splenic vein with concern for bone pain vision of splenic artery. And multiple liver masses consistent with metastatic disease and large pelvic mass having density suggestive of ovarian cyst but cystoadenoma not excluded. An ultrasound guided liver biopsy was performed on 07/17/2019 and pathology revealed moderately differentiated adenocarcinoma. Immunohistochemistry was positive for CK 7, vimentin, CA 19???9 NICOLAS. Focally positive for CEA. Patient denies any history of jaundice patient denies any history of melena or hematochezia patient denies any history of hemoptysis or hematemesis patient denies any history of vaginal bleeding. Patient denies any history of weight loss. She is still having right upper quadrant pain but being controlled by hydrocodone 10/325 and she take it 2- 3 times a day. And also complaining of off and on constipation. Patient is an excellent health otherwise, possible medical history significant for hypothyroidism, hyperlipidemia and she has history of hysterectomy in the past Smoke about half pack a day the last 30 years, denies alcohol use. Started on modified dose for folfirinox every 2 weeks on 08/16/2019 Came for follow-up, complaining of off and on lower abdominal pain, now she like pressure on her bladder too . No diarrhea or constipation but requiring stool softener more often. Denies any fever chills denies any nausea or vomiting denies any melena or hematochezia denies any vaginal bleeding. Denies any jaundice. Denies any abdominal distention. Tolerating systemic chemotherapy with folfirinox well Medications: Calcium 1 Capsule (of 250 mg) Oral daily, Co Q 10 1 Capsule (of 100 mg) Oral daily, HYDROcodone-Acetaminophen 1 Tablet (of 10-325 mg) Oral q 5 hours PRN, Levothyroxine Sodium 1 Tablet (of 75 mcg) Oral daily, Lipitor 1 Tablet (of 80 mg) Oral daily, Multiple Vitamins/Womens Tablet Oral, Ondansetron HCl 1 Tablet (of 4 mg) Oral q 6 hours PRN Allergies: No Known Allergies. Review of Systems: Constitutional - Appetite is diminished and weight is stable. No fever, chills, hot flashes. Positive for night sweats. Energy level is fair, ENMT - Positive for sinus congestion/drainage. No mouth sores. No sore throat or difficulty swallowing, Hematologic/Lymphatic - Positive for easy bruisnig, Respiratory - No shortness of breath. No cough. No pleuritic pain or hemoptysis, Cardiovascular - No angina pain. No palpitations, Gastrointestinal - Positive for nausea, no vomiting. No heartburn or acid reflux. Positive for diarrhea, no constipation. No blood in the stool or black stools, Genitourinary (F) - No dysuria or hematuria. No urinary frequency. No urgency or incontinence, Musculoskeletal - No joint or bone pain, Neurologic - No headache or dizziness. No numbness/paresthesias or other focal neurologic symptoms, Psychiatric - Positive for anxiety. Vital Signs: Performed on October 05, 2019 11:09 Height - 59.00 in Weight - 141.2 lbs (LOW) BSA - 1.59 sq.m BMI - 28.52 Temperature - 98.3 F (LOW) Pulse - 92 /min Respiration - 17 /min BP - 129/75 mm(hg) O2 Sat - 98 % Pain - 4 Performance Status: 1 - No physically strenuous activity, but ambulatory and able to carry out light or sedentary work (e.g. office work, light house work). (ECOG) Physical Examination: ENMT - no mouth sores, no thrush, no jaundice, Respiratory - Lungs are clear, Cardiovascular - Regular rate and rhythm of heart, Abdomen - soft, bowel sounds present, no rebound tenderness, Extremities - no edema. Lab/Imaging: Test performed on October 03, 2019 09:45 Sodium 139 mmol/L Potassium 5.2 mmol/L Chloride 101 mmol/L CO2 25 mmol/L Anion Gap 18.2 BUN 12 mg/dL Creatinine 0.5 mg/dL Cr Clearance (Est) 112.2300 mL/min Glucose 112 mg/dL Calcium 9.3 mg/dL Protein, Total 7.1 g/dL Albumin 3.9 g/dL Globulin 3.2 g/dL Bilirubin, Total 0.3 mg/dL ALT (SGPT) 16 U/L AST (SGOT) 23 U/L Alkaline Phosphatase 543 IU/L WBC 35.9 10 3/uL RBC 3.43 10 6/uL HGB 9.4 g/dL HCT 30.6 % MCV 89.2 fL MCH 27.4 pg MCHC 30.7 g/dL RDW 19.5 % Platelet Count 233 10 3/cmm MPV 9.7 fL Neutrophils 31.9 10 3/uL Lymphocytes 1.8 10 3/uL Monocytes 0.7 10 3/uL Eosinophils 0.2 10 3/uL Basophils 0.2 10 3/uL Neutrophil % 88.9 % Lymphocyte % 5.1 % Monocyte % 1.8 % Eosinophil % 0.5 % Basophils % 0.4 % CA 19-9 11188 U/mL Test performed on September 25, 2019 09:00 Manual Bands % 11.0 % Manual Lymphs % 3 % Manual Monos % 3.0 % Metamyelocytes % 2.0 % Myelocytes % 2.0 % CBC Slide Review Slide Review Perform Polychromasia 2+ Anisocytosis 2+ Macrocytosis 1+ Microcytosis 1+ Manual Bands Abs 3.2 10 3/cmm Manual Monocytes Abs 0.9 10 3/cmm Test performed on Aug 16, 2019 08:57 Manual Eosinophils 1 % CEA 113.9 ng/mL Impression: Moderately differentiated adenocarcinoma per ultrasound-guided liver biopsy done on 07/17/2019, immunohistochemistry positive for CK 7, vimentin, high molecular weight CK, CA 19???9, NICOLAS. CT scan of abdomen pelvis done on 07/10/2019 showed anterior tibial mass measuring 2.7 x 4.9 cm highly suggestive of primary malignancy and having invaded and occluded the splenic vein, concern for developing invasion of splenic artery. Multiple liver masses consistent with metastatic disease. Large pelvic mass having density suggestive of ovarian cyst, but cystoadenoma not excluded considering rim calcification in the mass, status post hysterectomy Sclerotic focus in T10, questionable second bone island considering possible bone island in the left superior acetabulum. History of hypothyroidism History of hyperlipidemia Plan: Discussed with patient regarding her labs white blood count 35.9 hemoglobin 9.4 hematocrit 30.6 platelets 232,000 CMP within normal limits except alkaline phosphatase 543 and her tumor marker CA 19???9 is 26,898 compared to 32,228 on 09/25/2019 and 7439 on 09/12/2019 and her abdominal sonogram done on 10/03/2019 which showed pancreatic hypoechoic area in pancreatic tail measures 2.6 x 4.7 x 2.0 cm and is stable compared to 07/10/2019 whereas liver mass towards diaphragmatic surface measuring 2.8 x 6.7 x 6.2 cm has increase in size along with additional nodules in the liver. Clinically, patient is doing reasonably well, tolerating folfirinox well but with expected side effects e.g. progressive anemia Concern is her markedly increased tumor marker CA 19???9 and now is fluctuating, and other issue is persistent lower abdominal pain and patient has pelvic mass which was described as his cystoadenoma or ovarian cyst. bur patient has history of oophorectomy in the past. Earlier plan was to manage the pancreatic cancer and then address this issue but now due to persistent symptoms and fluctuating markedly elevated tumor markers, we will consider CT scan of abdomen pelvis to assess pancreatic cancer as well as pelvic mass and if there is increase in size of pelvic mass, then we may refer her to surgery for palliative surgery if is possible on the other hand if CT scan shows pancreatic cancer progression then we may switch her chemotherapy to gemcitabine/Abraxane. Patient will return to clinic in 1 week with CBC CMP and with CT scan of abdomen pelvis. Signed By: Thomas Moreno M.D. <<Signature on File>>
[2019-10-10 08:14] LABS: Basophils # 0.2 10^3/uL (0.0-0.1); Basophils % 0.6 %; Eosinophils # 0.5 10^3/uL (0.0-0.8); Eosinophils % 1.8 %; Hematocrit 31.9 % (37.0-47.0); Hemoglobin 9.9 g/dL (11.5-15.3); Lymphocytes # 3.2 10^3/uL (0.8-4.8); Lymphocytes % 12.8 %; Mean Corpuscular Hemoglobin 27.7 pg (28.0-34.0); Mean Corpuscular Volume 89.4 fL (81-99); Mean Platelet Volume 9.4 fL (7.4-10.4); Neutrophils # 17.6 10^3/uL (1.8-7.7); Neutrophils % 69.9 %; Nucleated Red Blood Cells % 0.1 %; Platelet Count 380 10^3/cmm (130-400); Red Blood Count 3.57 10^6/uL (4.1-5.3); Red Cell Distribution Width 21.3 % (12.1-15.1); White Blood Count 25.1 10^3/uL (4.0-10.0)
[2019-10-10 08:27] LABS: Alanine Aminotransferase 13 U/L (0-33); Albumin Level 3.8 g/dL (3.5-5.2); Alkaline Phosphatase 486 IU/L (35-105); Anion Gap 16.8 (5-19); Aspartate Amino Transferase 22 U/L (0-32); Blood Urea Nitrogen 8 mg/dL (8-23); Calcium 9.6 mg/dL (8.5-10.5); Carbon Dioxide 26 mmol/L (22-29); Chloride 96 mmol/L (98-107); Globulin 3.3 g/dL (1.3-4.6); Glucose 111 mg/dL (65-115); Osmolality Calculated 277 mOsm/kg (285-295); Potassium 3.8 mmol/L (3.5-5.1); Sodium 135 mmol/L (136-145); Total Bilirubin 0.2 mg/dL (0.15-1.2); Total Protein 7.1 g/dL (6.6-8.7)
[2019-10-10 09:11] LABS: Slide Review Slide Review Perform
[2019-10-10] MEDS: dextrose 5% 250 ML 35 ML IV (09:45)
--- NOTE | 2019-10-16 10:59 | ONC FU_ITS ---
Martha Marr Patient Note Patient: Anyi Bone Unit #: [id number]: 1945 Dictated By: Beth GarnerDate of Visit: October 10, 2019 Onc MED Follow-Up/Prog Note Chief Complaint: metastatic pancreatic cancer History of Present Illness: Mrs. Bone is a 74-year-old female who was admitted to [facility] on 07/10/2019 with right upper quadrant abdominal pain. CT of the abdomen pelvis from July 10, 2019 reported multiple liver masses containing soft tissue density the largest measuring 4.5 cm in greatest diameter; no demonstration of these masses on the prior ultrasound from 01/05/2019. Gallbladder and bile ducts revealed no calcified stones no ductal dilatation. Pancreas reported relatively ill-defined margins of the mass in the pancreatic tail measuring 2.6 x 2.7 x 4.9 cm containing mostly soft tissue density having less enhancement than the normal pancreas; small anterior focus of water density in this mass the spleen revealed no splenomegaly. The adrenals an kidneys were unremarkable. The stomach and bowel reported at least moderate sigmoid colonic diverticulosis but no obstruction. Normal appendix. The intraperitoneal space had no free air and no apparent free fluid. Vascular. No normal splenic vein; probable invasion occlusion of the splenic vein by the pancreatic mass, especially considering the small varices in the splenic hilus. Concerning for development of invasion of the splenic artery in light of the lack of fat between the mass and the artery and the apparent slight irregularity of part of the arterial margin. There i was no aortic aneurysm or enlargement of the periportal nodes or other abdominal and pelvic nodes. There was a small metallic density in the left side of the vaginal cuff and in the left pelvis adjacent to the sigmoid colon. Over 12 mm calcification adjacent to the left margin of the the approximately 10 x 13.1 x 10.1 cm slightly lobulated pelvic mass containing multiple rim calcifications but mostly homogeneous water density; small focus of slight wall thickening in the anterior inferior margin of the mass along with the medial aspect of the right lobulation. There was possible bone island in the left superior acetabulum. Small sclerotic focus in the left superior aspect of T10, significance unclear. There was noted to be old compression fractures and degeneration of several disc. An ultrasound guided liver biopsy was performed on 07/17/2019 and pathology revealed moderately differentiated adenocarcinoma. Immunohistochemistry was positive for CK 7, vimentin, CA 19???9 NICOLAS. Focally positive for CEA. Patient is an excellent health otherwise, possible medical history significant for hypothyroidism, hyperlipidemia and she has history of hysterectomy in the past Smoke about half pack a day the last 30 years, denies alcohol use. Mrs Bone was seen by Dr Moreno and was offered treatment with modified FOLFIRI. She started on modified dose for folfirinox every 2 weeks on 08/16/2019. She has tolerated it well thus far, but has recevied growth factor suppot with Neulasta. Mrs. Bone is here today for follow-up. She is due for cycle 5 FOLFIRI. She states overall she is doing well. She has had no significant taste changes but states there is a spot on the back of her tongue (there are no lesions just an area that she calls a spot) that if she hits it just right things taste better and will remain better for an hour or so. If she takes a break from eating for a bit this will go away. She has had no trouble swallowing. She does states she is had some chemo induced numbness, tingling, burning in her fingertips. She states is been stable it is not getting worse with each treatment. She denies any fever or chills. She denies any nausea or vomiting. She states she has occasional nausea but that is well controlled and does not last very long if she does have it. She denies any diarrhea. She states her bowels are somewhat sluggish but she is able to control this with her own regimen currently. She denies any urinary complaints. She said no lower extremity edema. She denies shortness of breath, cough or orthopnea. She denies any chest pain or palpitations. She reports that her abdominal pain is better. She has not had the requested CT per Dr. Moreno's last visit. Her ECOG is 0. Past Medical History: Hyperlipidemia Hypothyroidism Past Surgical History: Hysterectomy Allergies: No Known Allergies. Medications: HYDROcodone-Acetaminophen 1 Tablet (of 10-325 mg) Oral q 5 hours PRN Levothyroxine Sodium 1 Tablet (of 75 mcg) Oral daily Ondansetron HCl 1 Tablet (of 4 mg) Oral q 6 hours PRN Family History: Father- colon cancer Mother- lung cancer. Social History: Ms. Bone is and she is retired. She is a daily smoker who has smoked 0.5 packs/day for 30 years. She drinks daily. She consumes 1 drink/day. Review Of Symptoms: Constitutional Denies fevers, chills, night sweats, excessive fatigue or weight loss. Allergic/Immunologic No reactions. Eyes Denies significant visual changes. No diplopia. No amaurosis. ENMT Denies changes in hearing, sore throat, mouth sores, difficulty or changes in swallowing ability, and/or sinus drainage. She states one are of her tongue tastes bitter or has bitter taste when food hits that area. No mouth sores. Endocrine No diabetes, thyroid disease or hormone replacement. Denies hot flashes or night sweats. Hematologic/Lymphatic Denies easy bruising or bleeding. The patient denies any tender or palpable lymph nodes. Breasts Respiratory Denies dyspnea on exertion, chest pain, cough or hemoptysis. Denies orthopnea. Cardiovascular Denies anginal chest pain, palpitations or orthopnea. Gastrointestinal Denies nausea, vomiting, diarrhea, GI bleeding, or constipation. Denies change in bowel habits and/or stool color, no heartburn or early satiety. Genitourinary (F) No hematuria, hesitancy, incontinence, vaginal bleeding, discharge or other problems with urination. Musculoskeletal Denies joint pain, swelling or redness. No decreased range of motion. Integumentary Denies chronic rashes, inflammation, ulcerations or skin changes. Neurologic Denies headache, blurred vision, and no areas of focal weakness or numbness. Normal gait. No sensory problems. Psychiatric Denies insomnia, depression, maryjane or mood swings. Vital Signs: Performed on October 10, 2019 09:08 Height - 59.00 in Weight - 142.6 lbs (HIGH) BSA - 1.60 sq.m BMI - 28.80 Temperature - 98.0 F (LOW) Pulse - 71 /min Respiration - 16 /min BP - 139/78 mm(hg) O2 Sat - 99 % Pain - 0,1 - No physically strenuous activity, but ambulatory and able to carry out light or sedentary work (e.g. office work, light house work). (ECOG) Physical Examination: Constitutional Alert, oriented, no acute distress. Skin pink, warm and dry. Head Normocephalic; atraumatic. Eyes Conjunctivae and sclerae are clear and without icterus. Pupils are reactive and equal. ENMT No oral exudates, ulcers, masses, thrush or mucositis. Oropharynx clear. Tongue normal. Neck Supple without masses or thyromegaly. No jugular venous distension. Hematologic/Lymphatic No petechiae or purpura. No tender or palpable lymph nodes in the cervical or supraclavicular areas. Respiratory Lungs are clear to auscultation without rhonchi or wheezing. Cardiovascular Regular rate and rhythm of heart without murmurs,clicks, gallops or rubs. Abdomen Non-tender, non-distended, no masses or ascites. Good bowel sounds noted in all quads. No guarding or rebound tenderness. No pulsatile masses. Back/Spine Non-tender to palpation. Extremities No visible deformities, no cyanosis, clubbing or edema. Musculoskeletal No tenderness or swelling, normal range of motion without obvious weakness. Integumentary No rashes or lesions. Neurologic No sensory or motor deficits, normal cerebellar function, normal gait. Psychiatric Alert and oriented times three. Coherent speech. Verbalizes understanding of our discussions today. Laboratory:Test performed on October 10, 2019 08:00 Sodium 135 mmol/L Potassium 3.8 mmol/L Chloride 96 mmol/L CO2 26 mmol/L Anion Gap 16.8 BUN 8 mg/dL Creatinine 0.4 mg/dL Cr Clearance (Est) 140.2800 mL/min Glucose 111 mg/dL Calcium 9.6 mg/dL Protein, Total 7.1 g/dL Albumin 3.8 g/dL Globulin 3.3 g/dL Bilirubin, Total 0.2 mg/dL ALT (SGPT) 13 U/L AST (SGOT) 22 U/L Alkaline Phosphatase 486 IU/L WBC 25.1 10 3/uL RBC 3.57 10 6/uL HGB 9.9 g/dL HCT 31.9 % MCV 89.4 fL MCH 27.7 pg MCHC 31.0 g/dL RDW 21.3 % Platelet Count 380 10 3/cmm MPV 9.4 fL Neutrophils 17.6 10 3/uL Lymphocytes 3.2 10 3/uL Monocytes 2.0 10 3/uL Eosinophils 0.5 10 3/uL Basophils 0.2 10 3/uL Neutrophil % 69.9 % Lymphocyte % 12.8 % Monocyte % 8.0 % Eosinophil % 1.8 % Basophils % 0.6 % CBC Slide Review Slide Review Perform SLIDE REVIEW AGREES WITH AUTOMATED RESULTS Test performed on October 03, 2019 09:45 CA 19-9 [id number] U/mL Test performed on Aug 16, 2019 08:57 Manual Eosinophils 1 % CEA 113.9 ng/mL Impression: Moderately differentiated adenocarcinoma per ultrasound-guided liver biopsy done on 07/17/2019, immunohistochemistry positive for CK 7, vimentin, high molecular weight CK, CA 19???9, NICOLAS. CT scan of abdomen pelvis done on 07/10/2019 showed a mass in the pancreatic tail measuring 2.6 x 2.7 x 4.9 cm containing mostly soft tissue density having less enhancement than normal pancreas, highly suggestive of primary malignancy and having invaded and occluded the splenic vein, concern for developing invasion of splenic artery. Multiple liver masses consistent with metastatic disease. Large pelvic mass having density suggestive of ovarian cyst, but cystoadenoma not excluded considering rim calcification in the mass, status post hysterectomy Sclerotic focus in T10, questionable second bone island considering possible bone island in the left superior acetabulum. History of hypothyroidism History of hyperlipidemia Ms. Bone was offered treatment with FOLFIRI Pang. She began her first cycle on August 16, 2019. It is concerning taht her markedly increased tumor marker CA 19???9 and now is fluctuating. Another issue is persistent lower abdominal pain and patient reports that she has pelvic mass which was described as his cystoadenoma or ovarian cyst. But patient has history of oophorectomy in the past. Earlier plan was to manage the pancreatic cancer and then address this issue but now due to persistent symptoms and fluctuating markedly elevated tumor markers, we will consider CT scan of abdomen pelvis to assess pancreatic cancer as well as pelvic mass and if there is increase in size of pelvic mass, then we may refer her to surgery for palliative surgery if is possible on the other hand if CT scan shows pancreatic cancer progression then we may switch her chemotherapy to gemcitabine/Abraxane. Plan: 1. Proceed with scheduled treatment today-we are waiting for her CT of the abdomen to be authorized and scheduled. 2. She will continue with Neulasta support. 3. Continue current anti-medics as they are working well for her. 4. Today's labs reviewed in detail and discussed with Ms. Bone and a copy was given to her. WBC 25.1 (presumably Neulasta) hemoglobin 9.9 platelets 3 and 80,000 ANC is 17,600 creatinine 0.4 LFTs are normal alk phos is improved from 629 on September 24, 2021 486 today. 5. We will plan to have her check interim counts in 1 week to include a CBC CMP for chemo monitoring. 6. She will be due for follow-up with Dr. Moreno in 6 weeks at which time she will be due for cycle 6 of Oxaliplatin, 5-FU, irinotecan. She continues with Neulasta support as well. 7. Ms. Bone was instructed to contact us in the interim should questions or problems arise. Signed By: Beth Garner-, AOP Thomas Moreno MD <<Signature on File>>
[2019-10-17 10:29] LABS: Basophils # 0.1 10^3/uL (0.0-0.1); Basophils % 0.3 %; Eosinophils # 0.2 10^3/uL (0.0-0.8); Eosinophils % 1.6 %; Hematocrit 30.3 % (37.0-47.0); Hemoglobin 9.3 g/dL (11.5-15.3); Lymphocytes # 1.3 10^3/uL (0.8-4.8); Lymphocytes % 8.7 %; Mean Corpuscular HGB Conc 30.7 g/dL (30.0-36.0); Mean Corpuscular Hemoglobin 27.5 pg (28.0-34.0); Mean Corpuscular Volume 89.6 fL (81-99); Mean Platelet Volume 10.2 fL (7.4-10.4); Monocytes # 0.5 10^3/uL (0.2-0.9); Monocytes % 3.6 %; Neutrophils # 12.8 10^3/uL (1.8-7.7); Neutrophils % 84.4 %; Nucleated Red Blood Cells % 0 %; Platelet Count 166 10^3/cmm (130-400); Red Blood Count 3.38 10^6/uL (4.1-5.3); Red Cell Distribution Width 20.7 % (12.1-15.1); White Blood Count 15.2 10^3/uL (4.0-10.0)
[2019-10-17 10:45] LABS: Alanine Aminotransferase 15 U/L (0-33); Albumin Level 3.8 g/dL (3.5-5.2); Alkaline Phosphatase 465 IU/L (35-105); Anion Gap 14.7 (5-19); Aspartate Amino Transferase 22 U/L (0-32); Blood Urea Nitrogen 12 mg/dL (8-23); Calcium 9.2 mg/dL (8.5-10.5); Carbon Dioxide 28 mmol/L (22-29); Chloride 96 mmol/L (98-107); Globulin 3.2 g/dL (1.3-4.6); Glucose 116 mg/dL (65-115); Osmolality Calculated 277 mOsm/kg (285-295); Potassium 3.7 mmol/L (3.5-5.1); Sodium 135 mmol/L (136-145); Total Bilirubin 0.3 mg/dL (0.15-1.2)
--- NOTE | 2019-10-18 11:55 | CT_ITS ---
WS: [id number] CT ABDOMEN PELVIS TECHNIQUE: Contrast-enhanced CT of the abdomen and pelvis with coronal and sagittal reformatted image s. CLINICAL INFORMATION: PANCREATIC CANCER COMPARISON: CT abdomen pelvis July 10, 2019 DLP: 1094.[address] scans at [facility] use at least one of these dose optimization techniques: automat ed exposure control; mA and/or kV adjustment per patient size (includes targeted exams where dose is matched to clinical indication); or iterative reconstruction. FINDINGS: Again seen is the heterogeneous enhancing low-attenuation lesion in the tail the pancreas measuring 2 .1 x 2.9 cm. More central low attenuation change in the pancreatic mass today. Overall mass appears i ncreased in size. Again seen are multiple heterogeneous metastatic lesions in the liver the largest i n the right hepatic lobe measuring 5.7 x 4.2 cm. This is increased in size compared to previous where it measured approximately 4.3 x 3.3 cm. Additional large left hepatic lesions the largest in left he patic lobe medially measuring 4.6 x 3.5 cm. This measured approximately 4.0 x 4.1 previously. Similar -appearing additional hepatic lesions measuring 2.9 and 2.8 cm respectively. Increased surrounding chavarria lo of heterogeneous enhancement compared to the prior examination likely due to treatment effect. Por hira vein is patent. Splenic vein is chronically occluded. Normal adrenal glands. Normal renal parench ymal enhancement. No hydronephrosis. Lung bases are well aerated. Again seen is the large low-attenuation pelvic lesion measuring approximately 12.1 x 9.9 cm not signi ficantly changed. Differential considerations are unchanged and include ovarian cyst versus mucinous and serous cystadenoma/cystadenocarcinoma. No periaortic or inguinal lymphadenopathy. Stable sclerotic foci at T10 and the superior acetabulum. CT/CT abdomen pelvis w con* [id number] IMPRESSION: 1. Again seen is the pancreatic tail mass with more low attenuation change and overall slightly increased in size measuring 2.9 x 2.1 cm. 2. Again seen are numerous large metastatic hepatic lesions slightly increased in size from previous with more surrounding heterogeneous enhancement. The lar gest lesion measures 4.2 x 5.7 cm right hepatic lobe increased from 3.2 x 4.2 c m previous. 3. 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 4. Large low-attenuation pelvic lesion measuring 12.1 x 9.9 cm not significant ly changed. Differential considerations include ovarian cyst or serous or mucin ous cystadenoma/adenocarcinoma. 5. Stable sclerotic focus at T10 and left superior acetabulum unchanged
[2019-10-18] MEDS: iohexol 300 mg/mL 50 mL Btl PO (12:49)
[2019-10-18] MEDS: iohexol 300 mg/mL 100 mL Btl IV (13:43)
== END 2019-10-22 23:59 | disposition home or self-care (01) ==
LOC: ONCMED 13:30
PROVIDERS: Nurse Practitioner; Family Provider Family Medicine; PCP Family Medicine; Visit Provider Internal Medicine Hematology & Oncology
DX: Z51.11 Encounter for antineoplastic chemotherapy (principal); C25.2 Malignant neoplasm of tail of pancreas; C78.7 Secondary malignant neoplasm of liver and intrahepatic bile duct; R97.8 Other abnormal tumor markers; E03.9 Hypothyroidism, unspecified; E78.5 Hyperlipidemia, unspecified; F17.210 Nicotine dependence, cigarettes, uncomplicated; I82.891 Chronic embolism and thrombosis of other specified veins; N94.9 Unspecified condition associated with female genital organs and menstrual cycle; Z51.81 Encounter for therapeutic drug level monitoring; Z79.899 Other long term (current) drug therapy
CPT/HCPCS: 36415; 36591; 74177; 76705; 80053; 85007; 85025; 86301; 96367; 96368; 96372; 96375; 96413; 96415; 96416; 96417; 96523; 99214; J0461; J0640; J1100; J1453; J2469; J2505; J9206; J9263; Q9967

== ENCOUNTER 2019-10-26 05:42 | Outpatient (RCR) | payer MEDICARE, SELFPAY ==
[2019-10-24 08:28] LABS: Basophils # 0.1 10^3/uL (0.0-0.1); Basophils % 0.5 %; Eosinophils # 0.3 10^3/uL (0.0-0.8); Hematocrit 34.5 % (37.0-47.0); Hemoglobin 10.4 g/dL (11.5-15.3); Lymphocytes # 2.2 10^3/uL (0.8-4.8); Lymphocytes % 19.6 %; Mean Corpuscular HGB Conc 30.1 g/dL (30.0-36.0); Mean Corpuscular Hemoglobin 27.4 pg (28.0-34.0); Mean Corpuscular Volume 90.8 fL (81-99); Mean Platelet Volume 9.4 fL (7.4-10.4); Monocytes # 1.3 10^3/uL (0.2-0.9); Monocytes % 11.7 %; Neutrophils % 63.6 %; Nucleated Red Blood Cells % 0 %; Platelet Count 397 10^3/cmm (130-400); Red Cell Distribution Width 22.3 % (12.1-15.1)
[2019-10-24 08:51] LABS: Alanine Aminotransferase 11 U/L (0-33); Albumin Level 3.8 g/dL (3.5-5.2); Alkaline Phosphatase 384 IU/L (35-105); Anion Gap 15.7 (5-19); Aspartate Amino Transferase 19 U/L (0-32); Blood Urea Nitrogen 7 mg/dL (8-23); Calcium 9.8 mg/dL (8.5-10.5); Carbon Dioxide 27 mmol/L (22-29); Chloride 99 mmol/L (98-107); Globulin 3.4 g/dL (1.3-4.6); Glucose 103 mg/dL (65-115); Osmolality Calculated 282 mOsm/kg (285-295); Potassium 3.7 mmol/L (3.5-5.1); Sodium 138 mmol/L (136-145); Total Bilirubin 0.3 mg/dL (0.15-1.2); Total Protein 7.2 g/dL (6.6-8.7)
[2019-10-24 10:05] LABS: Cancer Antigen 19 9 19583 U/mL (0-35)
[2019-10-26] MEDS: sodium chloride 0.9% 250 ML 75 ML IV (10:40)
--- NOTE | 2019-11-02 09:36 | ONC FU_ITS ---
Dr. Moreno follow up note Patient: Anyi Bone Unit #: [id number]: 1945 Dicatated By: Thomas Moreno M.D.Date of Visit:Oct 24, 2019 Onc Med Follow-up/Prog Note History of Present Illness: Mrs. Bone is a 74-year-old female who was admitted to [facility] on 07/10/2019 with right upper quadrant abdominal pain. CT of the abdomen pelvis from July 10, 2019 reported multiple liver masses containing soft tissue density the largest measuring 4.5 cm in greatest diameter; no demonstration of these masses on the prior ultrasound from 01/05/2019. Gallbladder and bile ducts revealed no calcified stones no ductal dilatation. Pancreas reported relatively ill-defined margins of the mass in the pancreatic tail measuring 2.6 x 2.7 x 4.9 cm containing mostly soft tissue density having less enhancement than the normal pancreas; small anterior focus of water density in this mass the spleen revealed no splenomegaly. The adrenals an kidneys were unremarkable. The stomach and bowel reported at least moderate sigmoid colonic diverticulosis but no obstruction. Normal appendix. The intraperitoneal space had no free air and no apparent free fluid. Vascular. No normal splenic vein; probable invasion occlusion of the splenic vein by the pancreatic mass, especially considering the small varices in the splenic hilus. Concerning for development of invasion of the splenic artery in light of the lack of fat between the mass and the artery and the apparent slight irregularity of part of the arterial margin. There i was no aortic aneurysm or enlargement of the periportal nodes or other abdominal and pelvic nodes. There was a small metallic density in the left side of the vaginal cuff and in the left pelvis adjacent to the sigmoid colon. Over 12 mm calcification adjacent to the left margin of the the approximately 10 x 13.1 x 10.1 cm slightly lobulated pelvic mass containing multiple rim calcifications but mostly homogeneous water density; small focus of slight wall thickening in the anterior inferior margin of the mass along with the medial aspect of the right lobulation. There was possible bone island in the left superior acetabulum. Small sclerotic focus in the left superior aspect of T10, significance unclear. There was noted to be old compression fractures and degeneration of several disc. An ultrasound guided liver biopsy was performed on 07/17/2019 and pathology revealed moderately differentiated adenocarcinoma. Immunohistochemistry was positive for CK 7, vimentin, CA 19???9 NICOLAS. Focally positive for CEA. Patient is an excellent health otherwise, possible medical history significant for hypothyroidism, hyperlipidemia and she has history of hysterectomy in the past Smoke about half pack a day the last 30 years, denies alcohol use. Mrs Bone was seen and was offered treatment with modified FOLFIRI. She started on modified dose for folfirinox every 2 weeks on 08/16/2019. Came for follow-up, denies any specific complaints except persistent right upper quadrant pain which is under control with current pain medication, no nausea or vomiting, no diarrhea constipation, no jaundice, no hemoptysis or hematemesis, fever or chills. Appetite is reasonable, tolerating systemic chemotherapy with folfirinox well Medications: HYDROcodone-Acetaminophen 1 Tablet (of 10-325 mg) Oral q 5 hours PRN, Levothyroxine Sodium 1 Tablet (of 75 mcg) Oral daily, Ondansetron HCl 1 Tablet (of 4 mg) Oral q 6 hours PRN Allergies: No Known Allergies. Review of Systems: Constitutional - Appetite is diminished and weight is stable. No fever, chills, hot flashes. Positive for night sweats. Energy level is fair, ENMT - Positive for sinus congestion/drainage. No mouth sores. No sore throat or difficulty swallowing, Hematologic/Lymphatic - Positive for easy bruisnig, Respiratory - No shortness of breath. No cough. No pleuritic pain or hemoptysis, Cardiovascular - No angina pain. No palpitations, Gastrointestinal - Positive for nausea, no vomiting. No heartburn or acid reflux. Positive for diarrhea, no constipation. No blood in the stool or black stools, Genitourinary (F) - No dysuria or hematuria. No urinary frequency. No urgency or incontinence, Musculoskeletal - No joint or bone pain, Neurologic - No headache or dizziness. No numbness/paresthesias or other focal neurologic symptoms, Psychiatric - Positive for anxiety. Vital Signs: Performed on Oct 24, 2019 10:20 Height - 59.00 in Weight - 139.8 lbs (LOW) BSA - 1.58 sq.m BMI - 28.24 Temperature - 99.2 F (HIGH) Pulse - 77 /min Respiration - 18 /min BP - 141/86 mm(hg) (HIGH) O2 Sat - 98 % Pain - 5 Performance Status: 1 - No physically strenuous activity, but ambulatory and able to carry out light or sedentary work (e.g. office work, light house work). (ECOG) Physical Examination: ENMT - no mouth sores, no thrush, Respiratory - Lungs are clear, Cardiovascular - Regular rate and rhythm of heart, Abdomen - soft, bowel sounds present, Extremities - trace edema. Lab/Imaging: Test performed on October 17, 2019 10:02 Sodium 135 mmol/L Potassium 3.7 mmol/L Chloride 96 mmol/L CO2 28 mmol/L Anion Gap 14.7 BUN 12 mg/dL Creatinine 0.4 mg/dL Cr Clearance (Est) 140.2800 mL/min Glucose 116 mg/dL Calcium 9.2 mg/dL Protein, Total 7.0 g/dL Albumin 3.8 g/dL Globulin 3.2 g/dL Bilirubin, Total 0.3 mg/dL ALT (SGPT) 15 U/L AST (SGOT) 22 U/L Alkaline Phosphatase 465 IU/L WBC 15.2 10 3/uL RBC 3.38 10 6/uL HGB 9.3 g/dL HCT 30.3 % MCV 89.6 fL MCH 27.5 pg MCHC 30.7 g/dL RDW 20.7 % Platelet Count 166 10 3/cmm MPV 10.2 fL Neutrophils 12.8 10 3/uL Lymphocytes 1.3 10 3/uL Monocytes 0.5 10 3/uL Eosinophils 0.2 10 3/uL Basophils 0.1 10 3/uL Neutrophil % 84.4 % Lymphocyte % 8.7 % Monocyte % 3.6 % Eosinophil % 1.6 % Basophils % 0.3 % CA 19-9 55475 U/mL Test performed on October 10, 2019 08:00 CBC Slide Review Slide Review Perform SLIDE REVIEW AGREES WITH AUTOMATED RESULTS Test performed on September 25, 2019 09:00 Manual Bands % 11.0 % Manual Lymphs % 3 % Manual Monos % 3.0 % Metamyelocytes % 2.0 % Myelocytes % 2.0 % Polychromasia 2+ Anisocytosis 2+ Macrocytosis 1+ Microcytosis 1+ Manual Bands Abs 3.2 10 3/cmm Manual Monocytes Abs 0.9 10 3/cmm Test performed on Aug 16, 2019 08:57 Manual Eosinophils 1 % CEA 113.9 ng/mL Impression: Moderately differentiated adenocarcinoma per ultrasound-guided liver biopsy done on 07/17/2019, immunohistochemistry positive for CK 7, vimentin, high molecular weight CK, CA 19???9, NICOLAS. CT scan of abdomen pelvis done on 07/10/2019 showed a mass in the pancreatic tail measuring 2.6 x 2.7 x 4.9 cm containing mostly soft tissue density having less enhancement than normal pancreas, highly suggestive of primary malignancy and having invaded and occluded the splenic vein, concern for developing invasion of splenic artery. Multiple liver masses consistent with metastatic disease. Large pelvic mass having density suggestive of ovarian cyst, but cystoadenoma not excluded considering rim calcification in the mass, status post hysterectomy and bilateral oophorectomy for repeated awaiting cysts Sclerotic focus in T10, questionable second bone island considering possible bone island in the left superior acetabulum. History of hypothyroidism History of hyperlipidemia Ms. Bone was offered treatment with FOLFIRI Pang. She began her first cycle on August 16, 2019. It is concerning taht her markedly increased tumor marker CA 19???9 and now is fluctuating , f/u . CT scan of abdomen pelvis done on 10/18/2019 showed pancreatic tail mass with more low-attenuation and changes and overall slightly increased in size now 2.9 x 2.1 cm and again seen numerous large metastatic hepatic lesion slight increase in size from previous and more surrounding heterogeneous enhancement in the largest lesion is 4.2 x 5.7 cm right hepatic lobe increased from 3.2 x 4.[address] scan on 07/10/2019. Unchanged chronic occlusion of splenic vein. Large low-attenuation pelvic lesion measuring 12.1 x 9.9 cm not significantly changed. Stable sclerotic focus at T10 and left superior acetabulum unchanged As follow-up CT scan of abdomen pelvis showed disease progression, so folfirinox was discontinued after 5 cycles on 10/10/2019 and she was switched to weekly Abraxane/gemcitabine Plan: Discussed with patient regarding her labs white blood count 11 hemoglobin 10.4 hematocrit 34.5 platelets 397,000 CMP within normal limits except alkaline phosphatase 384 compared to 465 on 10/17/2019 and tumor marker CA 19???9 checked done 10/16/2020 was 20,227 compared to 26,898 on 10/03/2019. CT scan of abdomen pelvis done on 10/18/2019 showed pancreatic tail mass with more low-attenuation and changes and overall slightly increased in size now 2.9 x 2.1 cm and again seen numerous large metastatic hepatic lesion slight increase in size from previous and more surrounding heterogeneous enhancement in the largest lesion is 4.2 x 5.7 cm right hepatic lobe increased from 3.2 x 4.[address] scan on 07/10/2019. Unchanged chronic occlusion of splenic vein. Large low-attenuation pelvic lesion measuring 12.1 x 9.9 cm not significantly changed. Stable sclerotic focus at T10 and left superior acetabulum unchanged Clinically, patient is doing reasonably well with a no progression of her persistent abdominal pain/discomfort and of new symptoms but her follow-up CT scan after 5 doses of folfirinox did not show any improvement rather disease progression, her tumor marker CA 19???9 is markedly elevated e.g. about 20,000. At this point we will consider changing her chemotherapy to Abraxane/gemcitabine and considering her age and performance status we'll consider dose modification e.g. Abraxane 100 mg/m??? instead of 125 mg/m??? and gemcitabine thousand milligrams per meter square on day 1, 8 and 15 and repeat every 28 days. We will obtain approval for insurance prior to the treatment. All the side effect possible benefits associated with chemotherapy including but not limited to bone marrow suppression, especially thrombocytopenia, hair loss, nausea vomiting, generalized weakness and fatigue, were mentioned, further teaching will be done by chemotherapy nurse. Once we have approval, patient will return to clinic start her new regimen with Abraxane/gemcitabine and we'll see her back in 1 week after chemotherapy is initiated, with CBC CMP. As far as pelvic mass is concern, patient has history of ovarian cysts and underwent bilateral oophorectomy in early 1999, her pelvic mass is stable, because of prior to was metastatic pancreatic cancer so further evaluation for pelvic mass was postponed, although follow-up CT scan of abdomen pelvis showed stable pelvic mass but patient says she has history of ruptured ovarian cysts, in that case we will refer her to [facility] for evaluation. Signed By: Thomas Moreno M.D. <<Signature on File>>
== END 2019-10-26 23:59 | disposition home or self-care (01) ==
LOC: ONCMED 05:42
PROVIDERS: Family Provider Family Medicine; PCP Family Medicine; Visit Provider Internal Medicine Hematology & Oncology
DX: Z51.11 Encounter for antineoplastic chemotherapy (principal); C78.7 Secondary malignant neoplasm of liver and intrahepatic bile duct; C25.2 Malignant neoplasm of tail of pancreas; R97.8 Other abnormal tumor markers; R10.11 Right upper quadrant pain; R19.00 Intra-abdominal and pelvic swelling, mass and lump, unspecified site; I82.890 Acute embolism and thrombosis of other specified veins; Z79.899 Other long term (current) drug therapy; Z90.722 Acquired absence of ovaries, bilateral; Z87.42 Personal history of other diseases of the female genital tract
CPT/HCPCS: 36591; 80053; 85025; 86301; 96367; 96413; 96417; 99214; J1100; J2469; J3490; J7050; J9201; J9264

== ENCOUNTER 2019-10-28 19:22 | Observation (INO) | payer MEDICARE, SELFPAY ==
[2019-10-28 19:35] VITALS: BP 120/66; PULSE 71; RESP 16; TEMP 37.4; O2SAT 100; BMI 27.6
--- NOTE | 2019-10-28 19:43 | XRR_ITS ---
PROCEDURE INFORMATION: Exam: XR Chest, 1 View Exam date and time: 10/28/2019 7:56 PM Age: 74 years old Clinical indication: Fever TECHNIQUE: Imaging protocol: XR of the chest Views: 1 view. COMPARISON: CR XR chest 1V portable [id number] 08/14/2019 1:47 PM FINDINGS: Moderate elevation/eventration of right hemidiaphragm, increased from prior study. No focal pulmonary consolidation is demonstrated on this single frontal image. No significant obscuration of the lateral costophrenic angles is demonstrated. No significant vascular congestion is demonstrated. Visualized cardiac silhouette size appears within normal limits. Tip of right central venous port projects over upper aspect of SVC, more proximal when compared to prior study. XR/XR chest 1V portable [id number] IMPRESSION: No acute pulmonary process is demonstrated. Tip of right central venous port projects over upper aspect of SVC, more proximal when compared to prior study.
--- NOTE | 2019-10-28 19:47 | W.ED.GENADLT ---
HPI - General Adult General: Chief complaint: General Medical Stated complaint: fever, ca pt Time Seen by Provider: 10/28/19 19:42 Source: patient Mode of arrival: ambulatory Limitations: no limitations History of Present Illness: HPI narrative: 74 yo female that has a hx of pancreatic cancer and is currently on chemo. she states today she has felt weak and had a fever of 101 today at home. she denies any cough or abdominal pain. denies worsening or improving factors. Associated symptoms: Deny chest pain, dyspnea, headache(s), nausea, rash or vomiting Review of Systems Const: Reports: fever(s), chills and fatigue Eyes: Denies: blurry vision or eye discomfort ENMT: Denies: throat pain or dental pain Card: Denies: chest pain Resp: Denies: dyspnea GI: Denies: abdominal pain, nausea, vomiting or diarrhea : Denies: dysuria Musc: Denies: neck pain or back pain Skin/Breast: Denies: rash Neuro: Denies: headache(s) Psych: Denies: depression Tr/Lymph: Denies: easy bruising All/Imm: Denies: urticaria PFSH ED PFSH: Medical History History of cyst of breast History of fracture of left ankle Hypothyroidism Pancreatic cancer metastasized to liver Surgical History History of bilateral oophorectomy History of dilatation and curettage History of tonsillectomy Hx of hysterectomy Hx of tubal ligation Family History Grandfather No problems noted. Father Colon cancer Stroke Hypertension Brother Hypertension Diabetes Stroke Sister Hypertension Diabetes Thyroid disease Mother Thyroid disease Social History Smoking and tobacco status: current every day smoker cigarettes Packs smoked per day: 0.75 Years cigarettes smoked: 15 Alcohol intake: former Physical Exam Const: COMMON NORMALS: no acute distress, patient oriented x3 and healthy appearing HENMT: COMMON NORMALS: normocephalic and atraumatic HEAD & SCALP: normocephalic and atraumatic Eye: COMMON NORMALS: Equal, round and reactive pupils present and EOMs intact bilaterally PUPIL: Yes Equal, round and reactive pupils present Neck/C-Spine: COMMON NORMALS: full ROM and supple Chest: COMMONS NORMALS: normal inspection of the chest and normal palpation of entire chest wall Resp: COMMON NORMALS: normal respiratory effort, No retractions, No use of accessory muscles and clear to auscultation bilaterally AUSCULTATION: clear to auscultation bilaterally Cardio: COMMON NORMALS: regular rate, regular rhythm and No murmurs present (Cardio) RATE: regular rate RHYTHM: regular rhythm GI: COMMON NORMALS: Normal to inspection, nondistended, normoactive bowel sounds present, Soft to palpation, non-tender and no masses PALPATION: Yes Soft to palpation Extremity: COMMON NORMALS: normal to inspection and full ROM Neuro: COMMON NORMALS: patient oriented x3, moves all extremities and no focal motor deficits Psych: COMMON NORMALS: mental status grossly normal, Normal thought process present and cooperative THOUGHT PROCESS: Normal thought process present Skin: COMMON NORMALS: no rashes or lesions noted and no wounds GENERAL SKIN EXAM: no rashes or lesions noted Course Vital Signs: Vital signs: Vital Signs Temperature 99.3 F 10/28/19 19:35 Pulse Rate 71 10/28/19 19:35 Respiratory Rate 16 10/28/19 19:35 Blood Pressure 120/66 10/28/19 19:35 Pulse Oximetry 100 10/28/19 19:35 MDM - General Adult MDM Narrative: Medical decision making narrative: Patient presents here with fever and does have a history of cancer as well. I spoke to Dr. Moreno who would like patient admitted and ruled out for COVID or any other infection. Will start on Levaquin at his request as well. I spoke to hospitalist and will admit at this time. Lab Data: Labs: Lab Results 10/28/19 10/28/19 10/28/19 Range/Units 20:00 20:00 20:00 WBC 13.7 H (4.0-10.0) 10^3/ uL RBC 3.29 L (4.1-5.3) 10^6/u L Hgb 9.5 L (11.5-15.3) g/dL Hct 31.0 L (37.0-47.0) % MCV 94.2 (81-99) fL MCH 28.9 (28.0-34.0) pg MCHC 30.6 (30.0-36.0) g/dL RDW 22.3 H (12.1-15.1) % Plt Count 248 (130-400) 10^3/c mm MPV 9.5 (7.4-10.4) fL Neut % (Auto) 88.5 % Lymph % (Auto) 9.7 % [place] % (Auto) 0.8 % Eos % (Auto) 0.2 % Baso % (Auto) 0.2 % Neut # (Auto) 12.2 H (1.8-7.7) 10^3/u L Lymph # (Auto) 1.3 (0.8-4.8) 10^3/u L [place] # (Auto) 0.1 L (0.2-0.9) 10^3/u L Eos # (Auto) 0.0 (0.0-0.8) 10^3/u L Baso # (Auto) 0.0 (0.0-0.1) 10^3/u L Nucleated RBC % (a uto) 0 % Nucleated RBCs # 0.0 /100WBC Sodium 132 L (136-145) mmol/L Potassium 4.1 (3.5-5.1) mmol/L Chloride 97 L (98-107) mmol/L Carbon Dioxide 23 (22-29) mmol/L Anion Gap 16.1 (5-19) BUN 7 L (8-23) mg/dL Creatinine 0.3 L (0.5-0.9) mg/dL Glucose 115 (65-115) mg/dL Calculated Osmolal ity 271 L (285-295) mOsm/k g Lactate 1.2 (0.5-2.2) mmol/L Calcium 8.8 (8.5-10.5) mg/dL Total Bilirubin 0.6 (0.15-1.2) mg/dL AST 21 (0-32) U/L ALT 12 (0-33) U/L Alkaline Phosphata se 306 H (35-105) IU/L Total Protein 6.6 (6.6-8.7) g/dL Albumin 3.4 L (3.5-5.2) g/dL Globulin 3.2 (1.3-4.6) g/dL Urine Color (Yellow) Urine Appearance (CLEAR) Urine pH (5-7) Ur Specific Gravit y (1.005-1.030) Urine Protein (Negative) Urine Glucose (UA) (Normal) Urine Ketones (Negative) Urine Blood (Negative) Urine Nitrate (Negative) Urine Bilirubin (NEGATIVE) Urine Urobilinogen (Negative) mg/dL Ur Leukocyte Danielle ase (Negative) Urine RBC (0-2) /hpf Urine WBC (0-5) /hpf Ur Squamous Epith Cells (0-5) Urine Bacteria (NONE) Urine Mucus 10/28/19 Range/Units 21:15 WBC (4.0-10.0) 10^3/ uL RBC (4.1-5.3) 10^6/u L Hgb (11.5-15.3) g/dL Hct (37.0-47.0) % MCV (81-99) fL MCH (28.0-34.0) pg MCHC (30.0-36.0) g/dL RDW (12.1-15.1) % Plt Count (130-400) 10^3/c mm MPV (7.4-10.4) fL Neut % (Auto) % Lymph % (Auto) % [place] % (Auto) % Eos % (Auto) % Baso % (Auto) % Neut # (Auto) (1.8-7.7) 10^3/u L Lymph # (Auto) (0.8-4.8) 10^3/u L [place] # (Auto) (0.2-0.9) 10^3/u L Eos # (Auto) (0.0-0.8) 10^3/u L Baso # (Auto) (0.0-0.1) 10^3/u L Nucleated RBC % (a uto) % Nucleated RBCs # /100WBC Sodium (136-145) mmol/L Potassium (3.5-5.1) mmol/L Chloride (98-107) mmol/L Carbon Dioxide (22-29) mmol/L Anion Gap (5-19) BUN (8-23) mg/dL Creatinine (0.5-0.9) mg/dL Glucose (65-115) mg/dL Calculated Osmolal ity (285-295) mOsm/k g Lactate (0.5-2.2) mmol/L Calcium (8.5-10.5) mg/dL Total Bilirubin (0.15-1.2) mg/dL AST (0-32) U/L ALT (0-33) U/L Alkaline Phosphata se (35-105) IU/L Total Protein (6.6-8.7) g/dL Albumin (3.5-5.2) g/dL Globulin (1.3-4.6) g/dL Urine Color Yellow (Yellow) Urine Appearance Sl hazy (CLEAR) Urine pH 5 (5-7) Ur Specific Gravit y 1.015 (1.005-1.030) Urine Protein Neg (Negative) Urine Glucose (UA) Norm (Normal) Urine Ketones Negative (Negative) Urine Blood 2+ H (Negative) Urine Nitrate Negative (Negative) Urine Bilirubin Neg (NEGATIVE) Urine Urobilinogen Norm (Negative) mg/dL Ur Leukocyte Danielle ase Negative (Negative) Urine RBC 0-4 H (0-2) /hpf Urine WBC 5-10 H (0-5) /hpf Ur Squamous Epith Cells 5-10 H (0-5) Urine Bacteria Trace (NONE) Urine Mucus 2+ Imaging Data^: CXR: Radiologist's impression: [address] [address] XRay Report Signed Patient: Anyi Bone Unit #: [id number] : 1945 Age/Sex: 74 / F ADM Date: 10/28/19 Loc: ER Room/Bed: Attending Dr: Ordering Provider/Ordering MD: Bryant Amin MD Date of Service: 10/28/19 Procedure(s): XR chest 1V portable [id number] Accession Number(s): [id number] Report Number: [id number] PROCEDURE INFORMATION: Exam: XR Chest, 1 View Exam date and time: 10/28/2019 7:56 PM Age: 74 years old Clinical indication: Fever TECHNIQUE: Imaging protocol: XR of the chest Views: 1 view. COMPARISON: CR XR chest 1V portable [id number] 08/14/2019 1:47 PM FINDINGS: Moderate elevation/eventration of right hemidiaphragm, increased from prior study. No focal pulmonary consolidation is demonstrated on this single frontal image. No significant obscuration of the lateral costophrenic angles is demonstrated. No significant vascular congestion is demonstrated. Visualized cardiac silhouette size appears within normal limits. Tip of right central venous port projects over upper aspect of SVC, more proximal when compared to prior study. XR/XR chest 1V portable [id number] IMPRESSION: No acute pulmonary process is demonstrated. Tip of right central venous port projects over upper aspect of SVC, more proximal when compared to prior study. Discharge Plan Discharge Patient Disposition: Admitted As Inpatient Clinical Impression: Pancreatic cancer Fever Qualifiers: Fever type: unspecified Qualified Code(s): R50.9 - Fever, unspecified Condition: Stable Referrals: Ehco Ayala MD [Primary Care Provider] - Coding Level of Care Code ED Utility Aircrewman for Chg Fwd Exam Comprehensive
[2019-10-28 20:07] LABS: Basophils % 0.2 %; Eosinophils % 0.2 %; Hemoglobin 9.5 g/dL (11.5-15.3); Lymphocytes # 1.3 10^3/uL (0.8-4.8); Lymphocytes % 9.7 %; Mean Corpuscular HGB Conc 30.6 g/dL (30.0-36.0); Mean Corpuscular Hemoglobin 28.9 pg (28.0-34.0); Mean Corpuscular Volume 94.2 fL (81-99); Mean Platelet Volume 9.5 fL (7.4-10.4); Monocytes # 0.1 10^3/uL (0.2-0.9); Monocytes % 0.8 %; Neutrophils # 12.2 10^3/uL (1.8-7.7); Neutrophils % 88.5 %; Nucleated Red Blood Cells % 0 %; Platelet Count 248 10^3/cmm (130-400); Red Blood Count 3.29 10^6/uL (4.1-5.3); Red Cell Distribution Width 22.3 % (12.1-15.1); White Blood Count 13.7 10^3/uL (4.0-10.0)
[2019-10-28 20:21] LABS: Alanine Aminotransferase 12 U/L (0-33); Albumin Level 3.4 g/dL (3.5-5.2); Alkaline Phosphatase 306 IU/L (35-105); Anion Gap 16.1 (5-19); Aspartate Amino Transferase 21 U/L (0-32); Blood Urea Nitrogen 7 mg/dL (8-23); Calcium 8.8 mg/dL (8.5-10.5); Carbon Dioxide 23 mmol/L (22-29); Chloride 97 mmol/L (98-107); Globulin 3.2 g/dL (1.3-4.6); Glucose 115 mg/dL (65-115); Osmolality Calculated 271 mOsm/kg (285-295); Potassium 4.1 mmol/L (3.5-5.1); Sodium 132 mmol/L (136-145); Total Bilirubin 0.6 mg/dL (0.15-1.2); Total Protein 6.6 g/dL (6.6-8.7)
[2019-10-28 20:22] LABS: Lactate (Lactic Acid level) 1.2 mmol/L (0.5-2.2)
[2019-10-28 22:31] LABS: Add Urine Microscopic? YES; Bilirubin Urine Neg (NEGATIVE); Blood Urine 2+ (Negative); Glucose Urine UA Norm (Normal); Ketones Urine Negative (Negative); Leukocyte Esterase Urine Negative (Negative); Nitrate Urine Negative (Negative); Protein Urine Neg (Negative); Specific Gravity, Urine 1.015 (1.005-1.030); Urine Appearance SL Hazy (CLEAR); Urine Color Yellow (Yellow); Urobilinogen Urine Norm (Negative); pH Urine 5 (5-7)
[2019-10-28 22:32] LABS: RBC Urine 0-4 /hpf (0-2)
[2019-10-28 22:33] LABS: Add Urine Culture? No; Bacteria Urine TRACE; Mucus Urine 2+
--- NOTE | 2019-10-28 23:02 | P.HP_ITS ---
Providers/Chief Complaint Admitting Physician: Stefany Muñiz MD Primary Care Provider: Echo Ayala MD Chief Complaint: fever, ca pt History of Present Illness Anyi Bone is a 74 year old female Medications/Allergies Home Medications Medication Instructions Recorded Confirmed Last Taken Type atorvastatin 80 mg PO DAILY 07/10/19 10/26/19 08/13/19 History coenzyme Q10 [CoQ-10] 100 mg PO DAILY 07/10/19 10/26/19 08/13/19 History docusate sodium [Colace] 100 mg PO DAILY 07/10/19 10/26/19 08/13/19 History levothyroxine 75 mcg PO DAILY 07/10/19 10/26/19 08/14/19 06:30 History ondansetron HCl [Zofran] 4 mg PO Q6H PRN #20 tab 07/10/19 10/26/19 08/13/19 Rx hydrocodone-acetaminophen 1 tab PO Q6H PRN 07/14/19 10/26/19 08/14/19 06:30 History furosemide 40 mg tablet 40 mg PO DAILY 10/26/19 10/26/19 Unknown History prochlorperazine maleate 10 mg 10 mg PO BID PRN 10/26/19 10/26/19 Unknown History tablet Allergies Allergy/AdvReac Type Severity Reaction Status Date / Time No Known Allergies Allergy Verified 10/26/19 15:09 PFSH Acute PFSH: Medical History History of cyst of breast History of fracture of left ankle Hypothyroidism Pancreatic cancer metastasized to liver Surgical History History of bilateral oophorectomy History of dilatation and curettage History of tonsillectomy Hx of hysterectomy Hx of tubal ligation Family History Grandfather No problems noted. Father Colon cancer Stroke Hypertension Brother Hypertension Diabetes Stroke Sister Hypertension Diabetes Thyroid disease Mother Thyroid disease Social History Smoking and tobacco status: current every day smoker cigarettes Packs smoked per day: 0.75 Years cigarettes smoked: 15 Alcohol intake: former Vitals/I&O/Wt Last Vital Signs Temp 99.3 F 10/28/19 19:35 Pulse 71 10/28/19 19:35 Resp 16 10/28/19 19:35 BP 120/66 10/28/19 19:35 Pulse Ox 100 10/28/19 19:35 Weight last 48 hrs Weight 62.142 kg Data : 10/28/19 20:00 10/28/19 20:00 Micro: Microbiology 10/28/19 20:00 Blood Culture - Preliminary Blood SPECIMEN COLLECTED Coding Level of Care Code 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
[2019-10-28] MEDS: acetaminophen 325 mg Tablet 650 MG PO (23:10)
--- NOTE | 2019-10-28 23:13 | PC.NURSE ---
Pt temp prior to acetaminophen 99.1
[2019-10-28] MEDS: levofloxacin-dextrose 5 % 750 MG/150 ML PREMIX 100 MG IV (23:14)
--- NOTE | 2019-10-28 23:17 | PC.NURSE ---
daughter Zunilda Lopes cell phone: [phone] spouse Gene house# [phone]
[2019-10-29] VITALS (62 sets, daily range): BP systolic 101–138; BP diastolic 53–89; PULSE 68–103; RESP 8–26; TEMP 36.7–37.4; O2SAT 93–100
[2019-10-29] MEDS: sodium chloride 0.9% 1,000 ML 999 ML IV (00:35)
--- NOTE | 2019-10-29 03:09 | P.HP_ITS ---
Providers/Chief Complaint Admitting Physician: Stefany Muñiz MD Primary Care Provider: Echo Ayala MD Chief Complaint: fever, ca pt History of Present Illness Anyi Bone is a 74 year old female who carries history of pancreatic cancer with metastasis to liver with moderately differentiated dental carcinoma histopathological diagnosis, hypothyroidism, dyslipidemia, pelvic mass cystadenoma, coming in with chief complaint of fever and lethargy. Patient is currently undergoing chemotherapy, she was in her usual state of health until yesterday when she started experiencing lethargy and fatigue. She experienced Rigors, temperature was checked which was 102 and 104. She did not experience any shortness of breath, productive cough, dysuria, diarrhea, exposure to cold suspect, flulike symptoms. She attributed her symptoms to over exerting herself as she considers herself very active. No respiratory difficulty. Diagnostics in the ER revealed normal hemodynamics, she has been afebrile, no active restaurant distress, saturating well on room air Chest x-ray showing no acute infiltrates, no leukocytosis, no UTI, no source of infection identified, however leukocytosis appreciated Dr. Moreno has been notified who recommended ruling out COVID and agreed with Levaquin 1 dose Review of Systems Const: Reports: fever(s), chills, body aches and fatigue Eyes: Denies: change in vision ENMT: Denies: throat pain Card: Denies: chest pain Resp: Denies: dyspnea GI: Denies: abdominal pain : Denies: flank pain Musc: Denies: neck pain Skin/Breast: Denies: rash Neuro: Denies: headache(s) Psych: Denies: anxiety Endo: Denies: polyuria Tr/Lymph: Denies: easy bruising All/Imm: Denies: urticaria Medications/Allergies Home Medications Medication Instructions Recorded Confirmed Last Taken Type atorvastatin 80 mg PO DAILY 07/10/19 10/26/19 08/13/19 History coenzyme Q10 [CoQ-10] 100 mg PO DAILY 07/10/19 10/26/19 08/13/19 History docusate sodium [Colace] 100 mg PO DAILY 07/10/19 10/26/19 08/13/19 History levothyroxine 75 mcg PO DAILY 07/10/19 10/26/19 08/14/19 06:30 History ondansetron HCl [Zofran] 4 mg PO Q6H PRN #20 tab 07/10/19 10/26/19 08/13/19 Rx hydrocodone-acetaminophen 1 tab PO Q6H PRN 07/14/19 10/26/19 08/14/19 06:30 History furosemide 40 mg tablet 40 mg PO DAILY 10/26/19 10/26/19 Unknown History prochlorperazine maleate 10 mg 10 mg PO BID PRN 10/26/19 10/26/19 Unknown History tablet Allergies Allergy/AdvReac Type Severity Reaction Status Date / Time No Known Allergies Allergy Verified 10/26/19 15:09 PFSH Acute PFSH: Medical History (Updated 10/29/19 @ 03:25 by Stefany Muñiz MD) History of cyst of breast History of fracture of left ankle Hypothyroidism Pancreatic cancer metastasized to liver Moderately differentiated cancer Adenocarcinoma Pelvic mass Surgical History History of bilateral oophorectomy History of dilatation and curettage History of tonsillectomy Hx of hysterectomy Hx of tubal ligation Family History Grandfather No problems noted. Father Colon cancer Stroke Hypertension Brother Hypertension Diabetes Stroke Sister Hypertension Diabetes Thyroid disease Mother Thyroid disease Social History (Updated 10/29/19 @ 03:17 by Stefany Muñiz MD) Smoking and tobacco status: current every day smoker cigarettes [ Other cigarette details: [id number]-lprm smoking history ] Alcohol intake: former Household members: family Housing: House Vitals/I&O/Wt Last Vital Signs Temp 99.3 F 10/29/19 02:05 Pulse 87 10/29/19 02:05 Resp 16 10/29/19 02:25 BP 117/76 10/29/19 02:45 Pulse Ox 97 10/29/19 02:45 10/28/19 10/28/19 10/29/19 14:59 22:59 06:59 Intake Total 380 / 380 Balance 380 / 380 Weight last 48 hrs Weight 65.317 kg Weight 62.142 kg Physical Exam Narrative: EXAM NARRATIVE: Head to toe examination Patient laying comfortable in her bed without any active desaturation, saturating well on room air Wearing a facemask Does not look emaciated or malnourished No respiratory distress S1, S2 no signs of heart failure No adventitious sounds on lung auscultation bilateral good breath sound Neurologically nonfocal exam EOMI, PERRLA No skin ulcer gangrene or cyanosis Abdomen soft nontender nondistended, bowel sound present Appropriate mood and affect Data : 10/28/19 20:00 10/28/19 20:00 Micro: Microbiology 10/28/19 23:28 Blood Culture - Preliminary Blood SPECIMEN COLLECTED 10/28/19 20:00 Blood Culture - Preliminary Blood SPECIMEN COLLECTED A&P Assessment and plan (1) Fever: Status: Acute Qualifiers: Fever type: unspecified Qualified Code(s): R50.9 - Fever, unspecified (2) Pancreatic cancer: Status: Acute (3) Hypothyroidism: Status: Acute (4) Pelvic mass: Status: Acute (5) Normocytic anemia, not due to blood loss: Status: Acute (6) Poor venous access: Status: Resolved Additional A&P Information Lethargy and fatigue Fever noticed at home, she has been afebrile in the hospital Leukocytosis noticed No active source of infection, no signs of UTI, She has been given Levaquin 1 dose in the ER 750mg IV Dr. Moreno recommended ruling out COVID as well Patient wanted to leave from the ER but stayed for her investigational studies No tachycardia or hypoxia, my suspicion for PE is low at this time, would not obtain d-dimer as it will be high because of her history of cancer It could be noninfectious inflammatory febrile episode due to underlying cancer Blood cultures obtained, Mediport site is not sensitive Chronic normocytic anemia No active bleeding This seems secondary to drug-induced Not on antiplatelet or anticoagulants Pancreatic cancer with metastases to liver Moderately differentiated adenocarcinoma Pelvic mass with high CA-19-9, 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 as well, she prefers to have nothing done for her pelvic mass Hypothyroidism: Continue her levothyroxine at home dose, no clinical signs of hypo-or hyperthyroidism, will check TSH DVT prophylaxis: Would avoid due to underlying anemia Regular diet Full code Attestations Medical Necessity Statement*: Anticipating discharge in less than 48 hours, currently needs investigation for COVID, required IV Levaquin in the ER, no active sepsis or source of infection identified, clinically doing better, she requires ICU because of isolation to rule out COVID Time Spent in Patient Care: 50 Coding Level of Care Code 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
[2019-10-29] MEDS: enoxaparin 40 mg/0.4 mL Syringe SUBCUT (03:39)
[2019-10-29] MEDS: HYDROcodone-acetaminophen 10-325 mg Tablet 1 TAB PO ×2 (03:39→10:59)
[2019-10-29 04:17] LABS: Procalcitonin 0.32 ng/mL (0-0.5); Thyroid Stimulating Hormone 10.49 uIU/mL (0.27-4.20)
[2019-10-29 04:28] LABS: C Reactive Protein 110.7 mg/L (0.0-4.9); Ferritin 787 ng/mL (15-150); Lactate Dehydrogenase 205 U/L (135-214)
[2019-10-29 04:50] LABS: Basophils % 0.1 %; Eosinophils # 0.1 10^3/uL (0.0-0.8); Eosinophils % 0.7 %; Hematocrit 26.4 % (37.0-47.0); Hemoglobin 8.1 g/dL (11.5-15.3); Lymphocytes # 0.9 10^3/uL (0.8-4.8); Lymphocytes % 10.1 %; Mean Corpuscular HGB Conc 30.7 g/dL (30.0-36.0); Mean Corpuscular Volume 91.3 fL (81-99); Mean Platelet Volume 10.2 fL (7.4-10.4); Monocytes # 0.1 10^3/uL (0.2-0.9); Monocytes % 1.1 %; Neutrophils % 87.5 %; Nucleated Red Blood Cells % 0 %; Platelet Count 213 10^3/cmm (130-400); Red Blood Count 2.89 10^6/uL (4.1-5.3); White Blood Count 9.2 10^3/uL (4.0-10.0)
--- NOTE | 2019-10-29 06:18 | PC.NURSE ---
Patient stable and resting comfortably. Ambulates with stand by assist. Pain meds given for liver pain. VSS. On room air.
[2019-10-29] MEDS: atorvastatin 40 mg Tablet 80 MG PO (08:19)
[2019-10-29] MEDS: docusate sodium 100 mg Capsule PO (08:19)
[2019-10-29] MEDS: levothyroxine 150 mcg Tablet 75 MCG PO (08:19)
[2019-10-29] MEDS: hydrocortisone 100 mg/2 mL SDV IVP (08:49)
[2019-10-29] MEDS: levothyroxine 100 mcg Tablet PO (08:56)
[2019-10-29 10:42] LABS: Influenza A by IFA Negative (Negative); Influenza B by IFA Negative (Negative)
[2019-10-29 14:01] LABS: Coronavirus Lab Test PTC SEE REPORT
[2019-10-29] MEDS: levoFLOXacin 750 mg Tablet PO (17:04)
--- NOTE | 2019-10-29 17:42 | PC.NURSE ---
DISCHARGE NOTE: PT DISCHARGED TO HOME; DISCHARGE INSTRUCTIONS REVIEWED WITH PATIENT; DISCUSSED THE NEED FOR LAB DRAW ON 11/01/19; DISCUSSED THE NEED TO INFORM ONCOLOGY PHYSICIAN OF PENDING URINE CULTURE RESULTS; DISCUSSED SIGNS/SYMPTOMS THAT WARRANT MEDICAL ATTENTION; PORT PACKED WITH HEPARIN FLUSH AND COBB NEEDLE REMOVED WITH NO ISSUES, NEEDLE TIP INTACT;
--- NOTE | 2019-10-29 21:17 | P.DS_ITS ---
Discharge Providers Date of Admission: 10/28/19 22:33 Date of Discharge: October 29, 2019 Attending Provider at Admission: Stefany Muñiz MD Attending Provider at Discharge: Luis Butler Primary Care Provider: Echo Ayala MD Diagnoses at Discharge Discharge Diagnosis (1) Fever: Status: Acute Qualifiers: Fever type: unspecified Qualified Code(s): R50.9 - Fever, unspecified (2) Pancreatic cancer: Status: Acute (3) Hypothyroidism: Status: Acute (4) Pelvic mass: Status: Acute (5) Normocytic anemia, not due to blood loss: Status: Acute (6) Poor venous access: Status: Resolved Reason for Visit Reason for Visit: fever, ca pt Hospital Course Hospital Course: Pleasant 74-year-old lady with pancreatic cancer was placed in observation after spiking a fever at home, with requested rule out of COVID- 19 by her oncologist. Both COVID-19 and influenza were negative. She was monitored here after receiving Levaquin, and has not had any further fever episodes. She herself reports she is feeling well, and requests to be discharged as soon as possible. She denied any other symptoms on review of systems which may indicate acute infection. Please follow-up blood culture results. There was 5-10 WBCs in the urine, and so UTI likelihood is low, but cannot exclude. She will complete a course of Levaquin at home, follow-up with oncology in office. During the hospitalization she was found to have symptoms of hypothyroidism with getting cold easily, constipation, and with TSH of 10.49, levothyroxine dose was increased to 100 mcg. Please follow-up thyroid function in office. Due to mild hyponatremia, normal potassium, symptoms of fatigue, salt craving, received a dose of steroid with increased dose of levothyroxine on the off chance that has concomitant mild adrenal insufficiency, although blood pressures remained good, and she has been feeling well. She is instructed to monitor blood pressures at home closely. Of note anemia is seen, with hemoglobin of 8.1. No outward bleeding, however, please follow-up in office and arrange an appropriate evaluation. Her condition and all care discussed also with her daughter, who agrees with the plan of care. Physical Exam Const: COMMON NORMALS: no acute distress and patient oriented x3 GENERAL APPEARANCE: frail appearing HENMT: COMMON NORMALS: oropharynx normal Neck/C-Spine: COMMON NORMALS: no JVD Resp: COMMON NORMALS: normal respiratory effort and clear to auscultation bilaterally AUSCULTATION: clear to auscultation bilaterally Cardio: COMMON NORMALS: no JVD, regular rhythm, S1 normal heart sound present, S2 normal heart sound present and No murmurs present (Cardio) RHYTHM: regular rhythm HEART SOUNDS: S1 normal heart sound present and S2 normal heart sound present GI: COMMON NORMALS: Normal to inspection, nondistended, normoactive bowel sounds present, Soft to palpation and non-tender PALPATION: Yes Soft to palpation Extremity: COMMON NORMALS: no joint enlargement and no pedal edema Neuro: COMMON NORMALS: patient oriented x3 and moves all extremities Skin: COMMON NORMALS: no rashes or lesions noted GENERAL SKIN EXAM: no rashes or lesions noted Discharge Data Data Completed and Pending: Completed Studies During Hospitalization Category Date Time Status XR chest 1V rodrigo ble [id number] Urgent Exams 10/28/19 19:43 Completed Pending at discharge Category Date Time Status Blood Culture Sta t Lab 10/28/19 23:28 Results Urine Culture Rou nadeem Lab 10/29/19 16:45 Received Labs from last 24 hours 10/29/19 10/29/19 10/28/19 09:52 04:23 21:30 WBC 9.2 RBC 2.89 L Hgb 8.1 L Hct 26.4 L MCV 91.3 MCH 28.0 MCHC 30.7 RDW 22.0 H Plt Count 213 MPV 10.2 Neut % (Auto) 87.5 Lymph % (Auto) 10.1 [place] % (Auto) 1.1 Eos % (Auto) 0.7 Baso % (Auto) 0.1 Neut # (Auto) 8.0 H Lymph # (Auto) 0.9 [place] # (Auto) 0.1 L Eos # (Auto) 0.1 Baso # (Auto) 0.0 Nucleated RBC % (a uto) 0 Nucleated RBCs # 0.0 Ferritin Lactate Dehydrogen ase C-Reactive Protein Procalcitonin TSH Urine Color Urine Appearance Urine pH Ur Specific Gravit y Urine Protein Urine Glucose (UA) Urine Ketones Urine Blood Urine Nitrate Urine Bilirubin Urine Urobilinogen Ur Leukocyte Danielle ase Urine RBC Urine WBC Ur Squamous Epith Cells Urine Bacteria Urine Mucus Nasal/Oral COVID-1 9 PCR See report Influenza Type A A g Negative Influenza Type B A g Negative 10/28/19 10/28/19 21:15 20:00 WBC RBC Hgb Hct MCV MCH MCHC RDW Plt Count MPV Neut % (Auto) Lymph % (Auto) [place] % (Auto) Eos % (Auto) Baso % (Auto) Neut # (Auto) Lymph # (Auto) [place] # (Auto) Eos # (Auto) Baso # (Auto) Nucleated RBC % (a uto) Nucleated RBCs # Ferritin 787 H Lactate Dehydrogen ase 205 C-Reactive Protein 110.7 H Procalcitonin 0.32 TSH 10.49 H Urine Color Yellow Urine Appearance Sl hazy Urine pH 5 Ur Specific Gravit y 1.015 Urine Protein Neg Urine Glucose (UA) Norm Urine Ketones Negative Urine Blood 2+ H Urine Nitrate Negative Urine Bilirubin Neg Urine Urobilinogen Norm Ur Leukocyte Danielle ase Negative Urine RBC 0-4 H Urine WBC 5-10 H Ur Squamous Epith Cells 5-10 H Urine Bacteria Trace Urine Mucus 2+ Nasal/Oral COVID-1 9 PCR Influenza Type A A g Influenza Type B A g Vitals: Last Vital Signs Temp 98.1 F 10/29/19 17:31 Pulse 87 10/29/19 17:31 Resp 17 10/29/19 17:31 BP 138/89 10/29/19 17:31 Pulse Ox 93 10/29/19 17:31 Discharge Plan Discharge Patient Disposition: Home, Self-Care Condition: Stable Prescriptions: New levothyroxine [Levoxyl] 100 mcg Tablet 100 mcg PO DAILY Qty: 30 RF: 0 levofloxacin [Levaquin] 750 mg tablet 750 mg PO DAILY 5 Days Qty: 5 RF: 0 Continued prochlorperazine maleate 10 mg tablet 10 mg PO BID PRNRF: 0 furosemide 40 mg tablet 40 mg PO DAILY RF: 0 atorvastatin 80 mg tablet 80 mg PO DAILY RF: 0 docusate sodium [Colace] 100 mg Capsule 100 mg PO DAILY RF: 0 coenzyme Q10 [CoQ-10] 100 mg Capsule 100 mg PO DAILY RF: 0 ondansetron HCl [Zofran] 4 mg tablet 4 mg PO Q6H PRN (Reason: nausea and vomiting) Qty: 20 RF: 0 hydrocodone-acetaminophen 10-325 mg Tablet 1 tab PO Q6H PRN (Reason: Pain) RF: 0 Discontinued levothyroxine 75 mcg tablet 75 mcg PO DAILY RF: 0 Discharge Orders: Discharge Order (Routine); Ordered 10/29/19 Ordered By: Luis Butler Other Ambulatory Orders: Complete Blood Count w/Auto (Routine) Timeframe: 3 Days Location: Determined by Patient Ordered By: Luis Butler Referrals: Echo Ayala MD [Primary Care Provider] - 4-7 days Thomas Moreno MD [Staff Physician] - 4-7 days Discharge Diet: Advance as tolerated and Usual diet Discharge Activity: Increase activity as tolerated Activity Restrictions/Additional Instructions: Please monitor blood pressures at home 3 times daily and record values. If you notice your blood pressure is becoming low, please contact your physician's office or seek medical attention without delay. Due to hypothyroidism your levothyroxine dose was adjusted up to 100 mcg. Please follow-up with your primary care doctor regarding reassessment, and further adjustments. You are noted to have anemia. Please follow-up with your primary care doctor for recheck blood counts. If you notice any abnormal bleeding, or feel dizzy, develop fainting, or other abnormal symptoms, please seek medical attention without delay. If fever recurs, also seek medical attention. Please discuss with your primary care doctor and cancer doctor to follow-up the final results of blood and urine cultures. As well as to de-escalate antibiotics in case all cultures come back negative and you are doing well without any further fevers, or other symptoms. Please work with your primary care doctor regarding problems with constipation. Discharge Date/Time: 10/29/19 17:10 Discharge Attestations Time Spent in Discharge Care*: greater than 30 min Quality Metrics Clinical Quality Measures During this hospital stay, did patient experience: None Coding Level of Care Code Acute Assistant Unit Forester for Chg Fwd Diagnoses Fever R50.9 Fever type: unspecified Pancreatic cancer C25.9 Hypothyroidism E03.9 Pelvic mass R19.00 Normocytic anemia, not due to blood loss D64.9 Poor venous access I87.8
--- NOTE | 2019-10-30 10:06 | PC.NURSE ---
home medications [facility] called stating the patient daughter was there to pick up man medications but no meds were there. Patient listed [facility] as preferred pharmacy. Appears that discharge home med list was not finalized. New med orders given to pharmacist at this time.
--- NOTE | 2019-10-30 15:26 | PC.RESP ---
Smoking Cessation information and a schedule of classes sent to patient.
== END 2019-10-29 17:10 | disposition home or self-care (01) ==
LOC: ER 22:33 → ICU 22:53
PROVIDERS: Emergency Medicine; Admitting Provider Internal Medicine; PCP Family Medicine; Visit Provider Internal Medicine
DX: R06.02 Shortness of breath (principal); C25.9 Malignant neoplasm of pancreas, unspecified; E03.9 Hypothyroidism, unspecified; R19.00 Intra-abdominal and pelvic swelling, mass and lump, unspecified site; D64.9 Anemia, unspecified; I87.8 Other specified disorders of veins; Z82.49 Family history of ischemic heart disease and other diseases of the circulatory system; Z83.3 Family history of diabetes mellitus; F17.210 Nicotine dependence, cigarettes, uncomplicated
CPT/HCPCS: 12345; 71045; 80053; 81001; 82728; 83605; 83615; 84145; 84443; 85025; 86140; 87040; 87086; 87635; 87804; 96365; 96366; 96367; 96372; 96375; 99283; 99285; G0378; J1642; J1650; J1720; J1956; J7030

== ENCOUNTER 2019-11-16 06:42 | Outpatient (RCR) | payer MEDICARE, SELFPAY ==
[2019-11-01 09:00] LABS: Basophils % 0.4 %; Eosinophils # 0.2 10^3/uL (0.0-0.8); Eosinophils % 1.7 %; Hematocrit 28.7 % (37.0-47.0); Hemoglobin 8.9 g/dL (11.5-15.3); Lymphocytes # 1.6 10^3/uL (0.8-4.8); Lymphocytes % 17.3 %; Mean Corpuscular Hemoglobin 28.3 pg (28.0-34.0); Mean Corpuscular Volume 91.4 fL (81-99); Mean Platelet Volume 9.8 fL (7.4-10.4); Monocytes # 1.2 10^3/uL (0.2-0.9); Monocytes % 13.4 %; Neutrophils % 66.6 %; Nucleated Red Blood Cells % 0 %; Platelet Count 141 10^3/cmm (130-400); Red Blood Count 3.14 10^6/uL (4.1-5.3); Red Cell Distribution Width 21.8 % (12.1-15.1)
[2019-11-01 09:17] LABS: Alanine Aminotransferase 11 U/L (0-33); Albumin Level 3.3 g/dL (3.5-5.2); Alkaline Phosphatase 329 IU/L (35-105); Anion Gap 16.7 (5-19); Aspartate Amino Transferase 14 U/L (0-32); Blood Urea Nitrogen 8 mg/dL (8-23); Calcium 9.3 mg/dL (8.5-10.5); Carbon Dioxide 25 mmol/L (22-29); Chloride 95 mmol/L (98-107); Globulin 3.4 g/dL (1.3-4.6); Glucose 114 mg/dL (65-115); Osmolality Calculated 273 mOsm/kg (285-295); Potassium 3.7 mmol/L (3.5-5.1); Sodium 133 mmol/L (136-145); Total Bilirubin 0.4 mg/dL (0.15-1.2); Total Protein 6.7 g/dL (6.6-8.7)
[2019-11-02] MEDS: sodium chloride 0.9% 250 ML 75 ML IV (09:40)
--- NOTE | 2019-11-02 09:51 | ONC FU_ITS ---
Dr. Moreno follow up note Patient: Anyi Bone Unit #: [id number]: 1945 Dicatated By: Thomas Moreno M.D.Date of Visit:Nov 02, 2019 Onc Med Follow-up/Prog Note History of Present Illness: Mrs. Bone is a 74-year-old female who was admitted to [facility] on 07/10/2019 with right upper quadrant abdominal pain. CT of the abdomen pelvis from July 10, 2019 reported multiple liver masses containing soft tissue density the largest measuring 4.5 cm in greatest diameter; no demonstration of these masses on the prior ultrasound from 01/05/2019. Gallbladder and bile ducts revealed no calcified stones no ductal dilatation. Pancreas reported relatively ill-defined margins of the mass in the pancreatic tail measuring 2.6 x 2.7 x 4.9 cm containing mostly soft tissue density having less enhancement than the normal pancreas; small anterior focus of water density in this mass the spleen revealed no splenomegaly. The adrenals an kidneys were unremarkable. The stomach and bowel reported at least moderate sigmoid colonic diverticulosis but no obstruction. Normal appendix. The intraperitoneal space had no free air and no apparent free fluid. Vascular. No normal splenic vein; probable invasion occlusion of the splenic vein by the pancreatic mass, especially considering the small varices in the splenic hilus. Concerning for development of invasion of the splenic artery in light of the lack of fat between the mass and the artery and the apparent slight irregularity of part of the arterial margin. There i was no aortic aneurysm or enlargement of the periportal nodes or other abdominal and pelvic nodes. There was a small metallic density in the left side of the vaginal cuff and in the left pelvis adjacent to the sigmoid colon. Over 12 mm calcification adjacent to the left margin of the the approximately 10 x 13.1 x 10.1 cm slightly lobulated pelvic mass containing multiple rim calcifications but mostly homogeneous water density; small focus of slight wall thickening in the anterior inferior margin of the mass along with the medial aspect of the right lobulation. There was possible bone island in the left superior acetabulum. Small sclerotic focus in the left superior aspect of T10, significance unclear. There was noted to be old compression fractures and degeneration of several disc. An ultrasound guided liver biopsy was performed on 07/17/2019 and pathology revealed moderately differentiated adenocarcinoma. Immunohistochemistry was positive for CK 7, vimentin, CA 19???9 NICOLAS. Focally positive for CEA. Patient is an excellent health otherwise, possible medical history significant for hypothyroidism, hyperlipidemia and she has history of hysterectomy in the past Smoke about half pack a day the last 30 years, denies alcohol use.History of hypothyroidism on thyroid supplements Mrs Bone was seen and was offered treatment with modified FOLFIRI. She started on modified dose for folfirinox every 2 weeks on 08/16/2019. CT scan of abdomen pelvis done on October 18, 2019 showed pancreatic tail mass with more low attenuation and overall slightly increased in size now 2.9 x 2.1 cm and again seen numerous large metastatic hepatic lesions slightly increased in size from previous and largest lesion is 4.2 x 5.7 cm in the right hepatic lobe increased from 3.2 x 4.2 cm seen previously. And large low-attenuation palate lesion measuring 12.1 x 9.9 cm not significantly changed. Stable sclerotic focus at T10 and left superior acetabulum unchanged. And her tumor marker CA 19???9 keep fluctuating in the range of 20,000, with follow-up CT scan finding suggestive of disease progression and persistently markedly elevated tumor marker, it was decided to discontinue FOlforinox and on October 26, 2019 she was switched to weekly Abraxane/gemcitabine, Came for follow-up, denies any specific complaints, no fever or chills, no nausea or vomiting, no diarrhea or constipation but generalized weakness and fatigue as per patient last weekend she went to hospital with fever and work-up done including chest x-ray and urinalysis showed no sign of infection she was treated with antibiotics and discharged home on Levaquin and COVID-19 was checked came back negative. And her lab work-up also showed elevated TSH around 10.49, patient was on levothyroxine 75 mcg p.o. daily so her dose was increased by hospitalist to 100 mcg p.o. daily. And lab work-up also showed drop in her hemoglobin around 8.1 with no obvious sign of bleeding. Patient was discharged home on Wednesday on oral antibiotics Levaquin. Since then, no more fever or any other symptoms except generalized weakness and fatigue. And also complaining of lower extremity edema and patient is consuming a lot of free water and salt rich diet. And diuretics on as-needed basis. Medications: HYDROcodone-Acetaminophen 1 Tablet (of 10-325 mg) Oral q 5 hours PRN, Levothyroxine Sodium 1 Tablet (of 75 mcg) Oral daily, Ondansetron HCl 1 Tablet (of 4 mg) Oral q 6 hours PRN Allergies: No Known Allergies. Review of Systems: Constitutional - Appetite is diminished and weight is stable. No fever, chills, hot flashes. Positive for night sweats. Energy level is fair, ENMT - Positive for sinus congestion/drainage. No mouth sores. No sore throat or difficulty swallowing, Hematologic/Lymphatic - Positive for easy bruisnig, Respiratory - No shortness of breath. No cough. No pleuritic pain or hemoptysis, Cardiovascular - No angina pain. No palpitations, Gastrointestinal - Positive for nausea, no vomiting. No heartburn or acid reflux. Positive for diarrhea, no constipation. No blood in the stool or black stools, Genitourinary (F) - No dysuria or hematuria. No urinary frequency. No urgency or incontinence, Musculoskeletal - No joint or bone pain, Neurologic - No headache or dizziness. No numbness/paresthesias or other focal neurologic symptoms, Psychiatric - Positive for anxiety. Vital Signs: Performed on Nov 02, 2019 08:57 Height - 59.00 in Weight - 140.2 lbs (HIGH) BSA - 1.59 sq.m BMI - 28.32 Temperature - 98.2 F (LOW) Pulse - 85 /min Respiration - 20 /min BP - 134/76 mm(hg) O2 Sat - 97 % Pain - 0 Performance Status: 1 - No physically strenuous activity, but ambulatory and able to carry out light or sedentary work (e.g. office work, light house work). (ECOG) Physical Examination: ENMT - No mouth sores, no thrush, no jaundice, Respiratory - Lungs are clear, Cardiovascular - Regular rate and rhythm of heart, Abdomen - Soft, bowel sounds present, nontender, Extremities - 1+ edema bilaterally. Lab/Imaging: Test performed on Oct 24, 2019 08:10 Sodium 138 mmol/L Potassium 3.7 mmol/L Chloride 99 mmol/L CO2 27 mmol/L Anion Gap 15.7 BUN 7 mg/dL Creatinine 0.4 mg/dL Cr Clearance (Est) 125.40 mL/min Glucose 103 mg/dL Calcium 9.8 mg/dL Protein, Total 7.2 g/dL Albumin 3.8 g/dL Globulin 3.4 g/dL Bilirubin, Total 0.3 mg/dL ALT (SGPT) 11 U/L AST (SGOT) 19 U/L Alkaline Phosphatase 384 IU/L WBC 11.0 10 3/uL RBC 3.80 10 6/uL HGB 10.4 g/dL HCT 34.5 % MCV 90.8 fL MCH 27.4 pg MCHC 30.1 g/dL RDW 22.3 % Platelet Count 397 10 3/cmm MPV 9.4 fL Neutrophils 7.0 10 3/uL Lymphocytes 2.2 10 3/uL Monocytes 1.3 10 3/uL Eosinophils 0.3 10 3/uL Basophils 0.1 10 3/uL Neutrophil % 63.6 % Lymphocyte % 19.6 % Monocyte % 11.7 % Eosinophil % 3.0 % Basophils % 0.5 % CA 19-9 [id number] U/mL Test performed on October 10, 2019 08:00 CBC Slide Review Slide Review Perform SLIDE REVIEW AGREES WITH AUTOMATED RESULTS Test performed on September 25, 2019 09:00 Manual Bands % 11.0 % Manual Lymphs % 3 % Manual Monos % 3.0 % Metamyelocytes % 2.0 % Myelocytes % 2.0 % Polychromasia 2+ Anisocytosis 2+ Macrocytosis 1+ Microcytosis 1+ Manual Bands Abs 3.2 10 3/cmm Manual Monocytes Abs 0.9 10 3/cmm Test performed on Aug 16, 2019 08:57 Manual Eosinophils 1 % CEA 113.9 ng/mL Impression: Moderately differentiated adenocarcinoma per ultrasound-guided liver biopsy done on 07/17/2019, immunohistochemistry positive for CK 7, vimentin, high molecular weight CK, CA 19???9, NICOLAS. CT scan of abdomen pelvis done on 07/10/2019 showed a mass in the pancreatic tail measuring 2.6 x 2.7 x 4.9 cm containing mostly soft tissue density having less enhancement than normal pancreas, highly suggestive of primary malignancy and having invaded and occluded the splenic vein, concern for developing invasion of splenic artery. Multiple liver masses consistent with metastatic disease. Large pelvic mass having density suggestive of ovarian cyst, but cystoadenoma not excluded considering rim calcification in the mass, status post hysterectomy and bilateral oophorectomy for repeated awaiting cysts Sclerotic focus in T10, questionable second bone island considering possible bone island in the left superior acetabulum. History of hypothyroidism History of hyperlipidemia Ms. Bone was offered treatment with FOLFIRI Pang. She began her first cycle on August 16, 2019. It is concerning taht her markedly increased tumor marker CA 19???9 and now is fluctuating , f/u . CT scan of abdomen pelvis done on 10/18/2019 showed pancreatic tail mass with more low-attenuation and changes and overall slightly increased in size now 2.9 x 2.1 cm and again seen numerous large metastatic hepatic lesion slight increase in size from previous and more surrounding heterogeneous enhancement in the largest lesion is 4.2 x 5.7 cm right hepatic lobe increased from 3.2 x 4.[address] scan on 07/10/2019. Unchanged chronic occlusion of splenic vein. Large low-attenuation pelvic lesion measuring 12.1 x 9.9 cm not significantly changed. Stable sclerotic focus at T10 and left superior acetabulum unchanged As follow-up CT scan of abdomen pelvis showed disease progression, so folfirinox was discontinued after 5 cycles on 10/10/2019 and she was switched to weekly Abraxane/gemcitabine Plan: Discussed with patient regarding her labs white blood count 9 hemoglobin 8.9 hematocrit 28.7 platelets 141,000 CMP within normal limits except alkaline phosphatase 329 and sodium 133 Clinically, patient is doing reasonably well, tolerated first dose of Abraxane/gemcitabine well. We will proceed with day 8 Abraxane/gemcitabine today and then she will return to clinic in 1 week with CBC CMP and if lab looks reasonable especially platelet count and white blood cells, will consider next dose of weekly Abraxane/gemcitabine and then week off. As far as pelvic mass is concerned, patient has history of ovarian cyst and she was referred to [facility] and, she is awaiting appointment. Patient has history of hypothyroidism, during her recent hospital visit her TSH was 10.49 while she was on Synthroid 75 mcg p.o. daily her dose was increased to 100 mcg p.o. daily and her follow-up TSH is pending today and we will adjust her dose accordingly. Signed By: Thomas Moreno M.D. <<Signature on File>>
[2019-11-02 10:18] LABS: Thyroid Stimulating Hormone 20.94 uIU/mL (0.27-4.20)
[2019-11-08 13:41] LABS: Alanine Aminotransferase 8 U/L (0-33); Albumin Level 3.5 g/dL (3.5-5.2); Alkaline Phosphatase 302 IU/L (35-105); Anion Gap 13.9 (5-19); Aspartate Amino Transferase 13 U/L (0-32); Blood Urea Nitrogen 9 mg/dL (8-23); Carbon Dioxide 27 mmol/L (22-29); Chloride 97 mmol/L (98-107); Globulin 3.4 g/dL (1.3-4.6); Glucose 106 mg/dL (65-115); Osmolality Calculated 274 mOsm/kg (285-295); Potassium 3.9 mmol/L (3.5-5.1); Sodium 134 mmol/L (136-145); Total Bilirubin 0.3 mg/dL (0.15-1.2); Total Protein 6.9 g/dL (6.6-8.7)
[2019-11-08 13:44] LABS: Basophils % 0.5 %; Eosinophils # 0.1 10^3/uL (0.0-0.8); Eosinophils % 1.8 %; Hematocrit 26.9 % (37.0-47.0); Hemoglobin 8.4 g/dL (11.5-15.3); Lymphocytes # 1.4 10^3/uL (0.8-4.8); Lymphocytes % 35.3 %; Mean Corpuscular HGB Conc 31.2 g/dL (30.0-36.0); Mean Corpuscular Hemoglobin 28.2 pg (28.0-34.0); Mean Corpuscular Volume 90.3 fL (81-99); Mean Platelet Volume 10.8 fL (7.4-10.4); Monocytes # 0.4 10^3/uL (0.2-0.9); Monocytes % 11.2 %; Neutrophils % 50.9 %; Nucleated Red Blood Cells % 0 %; Platelet Count 90 10^3/cmm (130-400); Red Blood Count 2.98 10^6/uL (4.1-5.3); Red Cell Distribution Width 21.2 % (12.1-15.1); White Blood Count 3.9 10^3/uL (4.0-10.0)
[2019-11-08 14:30] LABS: Slide Review Slide Review Perform
[2019-11-15 09:27] LABS: Basophils % 0.5 %; Eosinophils # 0.2 10^3/uL (0.0-0.8); Eosinophils % 3.6 %; Hematocrit 29.6 % (37.0-47.0); Hemoglobin 8.9 g/dL (11.5-15.3); Lymphocytes # 1.3 10^3/uL (0.8-4.8); Lymphocytes % 21.6 %; Mean Corpuscular HGB Conc 30.1 g/dL (30.0-36.0); Mean Corpuscular Hemoglobin 28.2 pg (28.0-34.0); Mean Corpuscular Volume 93.7 fL (81-99); Mean Platelet Volume 9.2 fL (7.4-10.4); Monocytes # 0.9 10^3/uL (0.2-0.9); Monocytes % 15.3 %; Neutrophils # 3.5 10^3/uL (1.8-7.7); Neutrophils % 58.7 %; Nucleated Red Blood Cells % 0 %; Platelet Count 498 10^3/cmm (130-400); Red Blood Count 3.16 10^6/uL (4.1-5.3); Red Cell Distribution Width 21.9 % (12.1-15.1); White Blood Count 5.9 10^3/uL (4.0-10.0)
[2019-11-15 09:42] LABS: Alanine Aminotransferase 8 U/L (0-33); Albumin Level 3.8 g/dL (3.5-5.2); Alkaline Phosphatase 272 IU/L (35-105); Anion Gap 14.1 (5-19); Aspartate Amino Transferase 19 U/L (0-32); Blood Urea Nitrogen 17 mg/dL (8-23); Calcium 9.1 mg/dL (8.5-10.5); Carbon Dioxide 25 mmol/L (22-29); Chloride 101 mmol/L (98-107); Globulin 2.8 g/dL (1.3-4.6); Glucose 115 mg/dL (65-115); Osmolality Calculated 279 mOsm/kg (285-295); Potassium 4.1 mmol/L (3.5-5.1); Sodium 136 mmol/L (136-145); Total Bilirubin 0.2 mg/dL (0.15-1.2); Total Protein 6.6 g/dL (6.6-8.7)
[2019-11-16] MEDS: sodium chloride 0.9% 250 ML 75 ML IV (10:20)
--- NOTE | 2019-11-16 11:24 | ONC FU_ITS ---
[facility] Patient Note Patient: Anyi Bone Unit #: [id number]: 1945 Dictated By: Beth GarnerDate of Visit: Nov 16, 2019 Onc MED Follow-Up/Prog Note Chief Complaint: metastatic pancreatic cancer History of Present Illness: Mrs. Bone is a 74-year-old female who was admitted to [facility] on 07/10/2019 with right upper quadrant abdominal pain. CT of the abdomen pelvis from July 10, 2019 reported multiple liver masses containing soft tissue density the largest measuring 4.5 cm in greatest diameter; no demonstration of these masses on the prior ultrasound from 01/05/2019. Gallbladder and bile ducts revealed no calcified stones no ductal dilatation. Pancreas reported relatively ill-defined margins of the mass in the pancreatic tail measuring 2.6 x 2.7 x 4.9 cm containing mostly soft tissue density having less enhancement than the normal pancreas; small anterior focus of water density in this mass the spleen revealed no splenomegaly. The adrenals an kidneys were unremarkable. The stomach and bowel reported at least moderate sigmoid colonic diverticulosis but no obstruction. Normal appendix. The intraperitoneal space had no free air and no apparent free fluid. Vascular. No normal splenic vein; probable invasion occlusion of the splenic vein by the pancreatic mass, especially considering the small varices in the splenic hilus. Concerning for development of invasion of the splenic artery in light of the lack of fat between the mass and the artery and the apparent slight irregularity of part of the arterial margin. There was no aortic aneurysm or enlargement of the periportal nodes or other abdominal and pelvic nodes. There was a small metallic density in the left side of the vaginal cuff and in the left pelvis adjacent to the sigmoid colon. Over 12 mm calcification adjacent to the left margin of the the approximately 10 x 13.1 x 10.1 cm slightly lobulated pelvic mass containing multiple rim calcifications but mostly homogeneous water density; small focus of slight wall thickening in the anterior inferior margin of the mass along with the medial aspect of the right lobulation. There was possible bone island in the left superior acetabulum. Small sclerotic focus in the left superior aspect of T10, significance unclear. There was noted to be old compression fractures and degeneration of several disc. An ultrasound guided liver biopsy was performed on 07/17/2019 and pathology revealed moderately differentiated adenocarcinoma. Immunohistochemistry was positive for CK 7, vimentin, CA 19???9 NICOLAS. Focally positive for CEA. Mrs Bone is in excellent health otherwise. Medical history significant for hypothyroidism, hyperlipidemia and she has history of hysterectomy in the past. She does moke about half pack a day the last 30 years, denies alcohol use. History of hypothyroidism on thyroid supplements Mrs Bone was seen and was offered treatment with modified FOLFIRI. She started on modified dose for folfirinox every 2 weeks on 08/16/2019. CT scan of abdomen pelvis done on October 18, 2019 showed pancreatic tail mass with more low attenuation and overall slightly increased in size now 2.9 x 2.1 cm and again seen numerous large metastatic hepatic lesions slightly increased in size from previous and largest lesion is 4.2 x 5.7 cm in the right hepatic lobe increased from 3.2 x 4.2 cm seen previously. And large low-attenuation palate lesion measuring 12.1 x 9.9 cm not significantly changed. Stable sclerotic focus at T10 and left superior acetabulum unchanged. And her tumor marker CA 19???9 keep fluctuating in the range of 20,000, with follow-up CT scan finding suggestive of disease progression and persistently markedly elevated tumor marker, it was decided to discontinue FOlforinox and on October 26, 2019 she was switched to weekly Abraxane/gemcitabine. Mrs. Bone is here today for follow-up. She is completed cycle 1 day 1 and 8 Abraxane gemcitabine. Day 15 was held due to thrombocytopenia. Her platelet count was 90,000. Overall she states she feels good. She denies any fever or chills. She has had no mouth sores or sore throat or difficulty swallowing. She denies any shortness of breath or orthopnea. She denies chest pain or palpitations. She states her appetite is good. She has gained a little bit of weight as she is doing Ensure twice a day now and is eating better. She states her appetite is good but she has no taste. She states that having no taste is better than having the bitter spot on my tongue . She remains active around the house. She states she is been working in her ceramics and actually cooked supper last night. She is tolerating activities well. She has not been working out in her yard as she states she was advised by Dr. Moreno not to do this. She denies any skin rashes. She has had no evidence of any bleeding. She denies any hematuria. She has had no hemoptysis. She actually denies any cough. She has had no bowel or bladder changes. She denies any neuropathy. She states overall she is doing well. She does try to do activities around the house but gets tired quickly but recovers well with rest. Her ECOG is 1. Past Medical History: Hyperlipidemia Hypothyroidism Past Surgical History: Hysterectomy Allergies: No Known Allergies. Medications: HYDROcodone-Acetaminophen 1 Tablet (of 10-325 mg) Oral q 5 hours PRN Levothyroxine Sodium 1 Tablet (of 75 mcg) Oral daily Ondansetron HCl 1 Tablet (of 4 mg) Oral q 6 hours PRN Family History: Father- colon cancer Mother- lung cancer. Social History: Ms. Bone is and she is retired. She is a daily smoker who has smoked 0.5 packs/day for 30 years. She drinks daily. She consumes 1 drink/day. Review Of Symptoms: Constitutional Denies fevers, chills, night sweats, excessive fatigue or weight loss. Allergic/Immunologic No reactions. Eyes Denies significant visual changes. No diplopia. No amaurosis. ENMT Denies changes in hearing, sore throat, mouth sores, difficulty or changes in swallowing ability, and/or sinus drainage. no mouth sores. no taste but not bitter any more. Hematologic/Lymphatic Denies easy bruising or bleeding. The patient denies any tender or palpable lymph nodes. Breasts Respiratory Denies dyspnea on exertion, chest pain, cough or hemoptysis. Denies orthopnea. Cardiovascular Denies anginal chest pain, palpitations or orthopnea. Gastrointestinal Denies nausea, vomiting, diarrhea, GI bleeding, or constipation. Denies change in bowel habits and/or stool color, no heartburn or early satiety. Genitourinary (F) No hematuria, hesitancy, incontinence, vaginal bleeding, discharge or other problems with urination. Musculoskeletal Denies joint pain, swelling or redness. No decreased range of motion. Integumentary Denies chronic rashes, inflammation, ulcerations or skin changes. Neurologic Denies headache, blurred vision, and no areas of focal weakness or numbness. Normal gait. No sensory problems. Psychiatric Denies insomnia, depression, maryjane or mood swings. Vital Signs: Performed on Nov 16, 2019 09:46 Height - 59.00 in Weight - 139.4 lbs (LOW) BSA - 1.58 sq.m BMI - 28.16 Temperature - 98.2 F (LOW) Pulse - 70 /min Respiration - 16 /min BP - 122/74 mm(hg) O2 Sat - 99 % Pain - 0,1 - No physically strenuous activity, but ambulatory and able to carry out light or sedentary work (e.g. office work, light house work). (ECOG) Physical Examination: Constitutional Alert, oriented, no acute distress. Skin pink, warm and dry. Head Normocephalic; atraumatic. Eyes Conjunctivae and sclerae are clear and without icterus. Pupils are reactive and equal. Neck Supple without masses or thyromegaly. No jugular venous distension. Hematologic/Lymphatic No petechiae or purpura. No tender or palpable lymph nodes in the cervical or supraclavicular areas. Respiratory Lungs are clear to auscultation without rhonchi or wheezing. Cardiovascular Regular rate and rhythm of heart without murmurs,clicks, gallops or rubs. Abdomen Non-tender, non-distended, no masses or Back/Spine Non-tender to palpation. Extremities No visible deformities, no cyanosis, clubbing or edema. Musculoskeletal No tenderness or swelling, normal range of motion without obvious weakness. Integumentary No rashes or lesions. Neurologic No sensory or motor deficits, normal cerebellar function, normal gait. Psychiatric Alert and oriented times three. Coherent speech. Verbalizes understanding of our discussions today. Laboratory:Test performed on Nov 08, 2019 13:07 Sodium 134 mmol/L Potassium 3.9 mmol/L Chloride 97 mmol/L CO2 27 mmol/L Anion Gap 13.9 BUN 9 mg/dL Creatinine 0.3 mg/dL Cr Clearance (Est) 167.1900 mL/min Glucose 106 mg/dL Calcium 9.0 mg/dL Protein, Total 6.9 g/dL Albumin 3.5 g/dL Globulin 3.4 g/dL Bilirubin, Total 0.3 mg/dL ALT (SGPT) 8 U/L AST (SGOT) 13 U/L Alkaline Phosphatase 302 IU/L WBC 3.9 10 3/uL RBC 2.98 10 6/uL HGB 8.4 g/dL HCT 26.9 % MCV 90.3 fL MCH 28.2 pg MCHC 31.2 g/dL RDW 21.2 % Platelet Count 90 10 3/cmm MPV 10.8 fL Neutrophils 2.0 10 3/uL Lymphocytes 1.4 10 3/uL Monocytes 0.4 10 3/uL Eosinophils 0.1 10 3/uL Basophils 0.0 10 3/uL Neutrophil % 50.9 % Lymphocyte % 35.3 % Monocyte % 11.2 % Eosinophil % 1.8 % Basophils % 0.5 % NRBC % 0 % CBC Slide Review Slide Review Perform SLIDE REVIEW AGREES WITH AUTOMATED RESULTS ST Test performed on Nov 01, 2019 08:35 TSH 20.94 uIU/mL Test performed on Oct 24, 2019 08:10 CA 19-9 06382 U/mL Impression: Moderately differentiated adenocarcinoma per ultrasound-guided liver biopsy done on 07/17/2019, immunohistochemistry positive for CK 7, vimentin, high molecular weight CK, CA 19???9, NICOLAS. CT scan of abdomen pelvis done on 07/10/2019 showed a mass in the pancreatic tail measuring 2.6 x 2.7 x 4.9 cm containing mostly soft tissue density having less enhancement than normal pancreas, highly suggestive of primary malignancy and having invaded and occluded the splenic vein, concern for developing invasion of splenic artery. Multiple liver masses consistent with metastatic disease. Large pelvic mass having density suggestive of ovarian cyst, but cystoadenoma not excluded considering rim calcification in the mass, status post hysterectomy and bilateral oophorectomy for repeated awaiting cysts Sclerotic focus in T10, questionable second bone island considering possible bone island in the left superior acetabulum. History of hypothyroidism History of hyperlipidemia Ms. Bone was offered treatment with FOLFIRI Pang. She began her first cycle on August 16, 2019. It is concerning taht her markedly increased tumor marker CA 19???9 and now is fluctuating , f/u . CT scan of abdomen pelvis done on 10/18/2019 showed pancreatic tail mass with more low-attenuation and changes and overall slightly increased in size now 2.9 x 2.1 cm and again seen numerous large metastatic hepatic lesion slight increase in size from previous and more surrounding heterogeneous enhancement in the largest lesion is 4.2 x 5.7 cm right hepatic lobe increased from 3.2 x 4.[address] scan on 07/10/2019. Unchanged chronic occlusion of splenic vein. Large low-attenuation pelvic lesion measuring 12.1 x 9.9 cm not significantly changed. Stable sclerotic focus at T10 and left superior acetabulum unchanged As follow-up CT scan of abdomen pelvis showed disease progression, so folfirinox was discontinued after 5 cycles on 10/10/2019 and she was switched to weekly Abraxane/gemcitabine. She was able to complete day 1 & 8 of cycle 1. Day 15 was held due to thrombocytopenia. Platelets had dropped from 141,000 on day 8 to 90,000 on day 15. Her ANC had dropped from 6000 on day 8 to 2000 on day 15. Plan: 1. Proceed with cycle 2 day 1 Abraxane/Gemzar. She was able to complete day 1 and 8 of cycle 1 only due to thrombocytopenia/neutropenia. 2. Continue current anti-medics as they are working well for her. 3. Today's labs reviewed in detail and discussed with Ms. Bone and a copy was given to her. WBC 5.9 hemoglobin 8.9 platelets 498,000 ANC is 3500 creatinine 0.3 LFTs are normal alk phos is improved from 629 on September 25, 2019 to 272 today. 4. We will plan to have her return in 1 week with CBC, CMP for consideration of cycle 2 day 8. 5. Ms. Bone was instructed to contact us in the interim should questions or problems arise. Signed By: Beth Garner-, AORUBINA Moreno MD <<Signature on File>>
== END 2019-11-21 23:59 | disposition home or self-care (01) ==
LOC: ONCMED 06:42
PROVIDERS: Internal Medicine Hematology & Oncology; PCP Family Medicine; Visit Provider Nurse Practitioner
DX: Z51.11 Encounter for antineoplastic chemotherapy (principal); C25.2 Malignant neoplasm of tail of pancreas; C78.7 Secondary malignant neoplasm of liver and intrahepatic bile duct; E78.5 Hyperlipidemia, unspecified; E03.9 Hypothyroidism, unspecified; D70.1 Agranulocytosis secondary to cancer chemotherapy; T45.1X5A Adverse effect of antineoplastic and immunosuppressive drugs, initial encounter
CPT/HCPCS: 36591; 80053; 84443; 85025; 96367; 96413; 96417; 99214; J1100; J2469; J3490; J7050; J9201; J9264

== ENCOUNTER 2019-12-14 06:39 | Outpatient (RCR) | payer MEDICARE, SELFPAY ==
[2019-11-22 09:43] LABS: Eosinophils % 0.8 %; Hematocrit 29.9 % (37.0-47.0); Hemoglobin 9.2 g/dL (11.5-15.3); Lymphocytes # 1.2 10^3/uL (0.8-4.8); Lymphocytes % 30.9 %; Mean Corpuscular HGB Conc 30.8 g/dL (30.0-36.0); Mean Corpuscular Hemoglobin 28.6 pg (28.0-34.0); Mean Corpuscular Volume 92.9 fL (81-99); Monocytes # 0.4 10^3/uL (0.2-0.9); Monocytes % 11.2 %; Neutrophils # 2.1 10^3/uL (1.8-7.7); Neutrophils % 55.6 %; Nucleated Red Blood Cells % 0 %; Platelet Count 450 10^3/cmm (130-400); Red Blood Count 3.22 10^6/uL (4.1-5.3); Red Cell Distribution Width 20.7 % (12.1-15.1); White Blood Count 3.9 10^3/uL (4.0-10.0)
[2019-11-22 10:04] LABS: Alanine Aminotransferase 15 U/L (0-33); Albumin Level 3.8 g/dL (3.5-5.2); Alkaline Phosphatase 235 IU/L (35-105); Aspartate Amino Transferase 18 U/L (0-32); Blood Urea Nitrogen 8 mg/dL (8-23); Calcium 9.1 mg/dL (8.5-10.5); Carbon Dioxide 27 mmol/L (22-29); Chloride 95 mmol/L (98-107); Globulin 3.4 g/dL (1.3-4.6); Glucose 132 mg/dL (65-115); Osmolality Calculated 278 mOsm/kg (285-295); Sodium 135 mmol/L (136-145); Total Bilirubin 0.4 mg/dL (0.15-1.2); Total Protein 7.2 g/dL (6.6-8.7)
[2019-11-22 14:11] LABS: Cancer Antigen 19 9 19280 U/mL (0-35)
[2019-11-23] MEDS: sodium chloride 0.9% 250 ML 75 ML IV (10:28)
--- NOTE | 2019-11-23 10:57 | ONC FU_ITS ---
Dr. Moreno follow up note Patient: Anyi Bone Unit #: [id number]: 1945 Dicatated By: Thomas Moreno M.D.Date of Visit:Nov 23, 2019 Onc Med Follow-up/Prog Note History of Present Illness: Mrs. Bone is a 74-year-old female who was admitted to [facility] on 07/10/2019 with right upper quadrant abdominal pain. CT of the abdomen pelvis from July 10, 2019 reported multiple liver masses containing soft tissue density the largest measuring 4.5 cm in greatest diameter; no demonstration of these masses on the prior ultrasound from 01/05/2019. Gallbladder and bile ducts revealed no calcified stones no ductal dilatation. Pancreas reported relatively ill-defined margins of the mass in the pancreatic tail measuring 2.6 x 2.7 x 4.9 cm containing mostly soft tissue density having less enhancement than the normal pancreas; small anterior focus of water density in this mass the spleen revealed no splenomegaly. The adrenals an kidneys were unremarkable. The stomach and bowel reported at least moderate sigmoid colonic diverticulosis but no obstruction. Normal appendix. The intraperitoneal space had no free air and no apparent free fluid. Vascular. No normal splenic vein; probable invasion occlusion of the splenic vein by the pancreatic mass, especially considering the small varices in the splenic hilus. Concerning for development of invasion of the splenic artery in light of the lack of fat between the mass and the artery and the apparent slight irregularity of part of the arterial margin. There was no aortic aneurysm or enlargement of the periportal nodes or other abdominal and pelvic nodes. There was a small metallic density in the left side of the vaginal cuff and in the left pelvis adjacent to the sigmoid colon. Over 12 mm calcification adjacent to the left margin of the the approximately 10 x 13.1 x 10.1 cm slightly lobulated pelvic mass containing multiple rim calcifications but mostly homogeneous water density; small focus of slight wall thickening in the anterior inferior margin of the mass along with the medial aspect of the right lobulation. There was possible bone island in the left superior acetabulum. Small sclerotic focus in the left superior aspect of T10, significance unclear. There was noted to be old compression fractures and degeneration of several disc. An ultrasound guided liver biopsy was performed on 07/17/2019 and pathology revealed moderately differentiated adenocarcinoma. Immunohistochemistry was positive for CK 7, vimentin, CA 19???9 NICOLAS. Focally positive for CEA. Mrs Bnoe is in excellent health otherwise. Medical history significant for hypothyroidism, hyperlipidemia and she has history of hysterectomy in the past. She does moke about half pack a day the last 30 years, denies alcohol use. History of hypothyroidism on thyroid supplements Mrs Bone was seen and was offered treatment with modified FOLFIRI. She started on modified dose for folfirinox every 2 weeks on 08/16/2019. CT scan of abdomen pelvis done on October 18, 2019 showed pancreatic tail mass with more low attenuation and overall slightly increased in size now 2.9 x 2.1 cm and again seen numerous large metastatic hepatic lesions slightly increased in size from previous and largest lesion is 4.2 x 5.7 cm in the right hepatic lobe increased from 3.2 x 4.2 cm seen previously. And large low-attenuation palate lesion measuring 12.1 x 9.9 cm not significantly changed. Stable sclerotic focus at T10 and left superior acetabulum unchanged. And her tumor marker CA 19???9 keep fluctuating in the range of 20,000, with follow-up CT scan finding suggestive of disease progression and persistently markedly elevated tumor marker, it was decided to discontinue FOlforinox and on October 26, 2019 she was switched to weekly Abraxane/gemcitabine. Came for follow-up, denies any specific complaints, except hearing loss, no fever chills, no nausea or vomiting, no diarrhea or constipation, abdominal pain is under control with current pain medication, tolerating Abraxane/gemcitabine well otherwise Medications: HYDROcodone-Acetaminophen 1 Tablet (of 10-325 mg) Oral q 5 hours PRN, Levothyroxine Sodium 1 Tablet (of 75 mcg) Oral daily, Ondansetron HCl 1 Tablet (of 4 mg) Oral q 6 hours PRN Allergies: No Known Allergies. Review of Systems: Review of Systems is not available for this patient. Vital Signs: Performed on Nov 23, 2019 09:24 Height - 59.00 in Weight - 136.8 lbs (LOW) BSA - 1.57 sq.m BMI - 27.63 Temperature - 97.8 F (LOW) Pulse - 83 /min Respiration - 20 /min BP - 133/81 mm(hg) O2 Sat - 98 % Pain - 0 Performance Status: 1 - No physically strenuous activity, but ambulatory and able to carry out light or sedentary work (e.g. office work, light house work). (ECOG) Physical Examination: ENMT - No mouth sores no thrush, no jaundice, Respiratory - Lungs are clear, Cardiovascular - Regular rate and rhythm of heart, Abdomen - Soft, bowel sounds present, Extremities - No edema or rash. Lab/Imaging: Test performed on Nov 22, 2019 09:00 Sodium 135 mmol/L Potassium 4.0 mmol/L Chloride 95 mmol/L CO2 27 mmol/L Anion Gap 17.0 BUN 8 mg/dL Creatinine 0.3 mg/dL Cr Clearance (Est) 167.1900 mL/min Glucose 132 mg/dL Calcium 9.1 mg/dL Protein, Total 7.2 g/dL Albumin 3.8 g/dL Globulin 3.4 g/dL Bilirubin, Total 0.4 mg/dL ALT (SGPT) 15 U/L AST (SGOT) 18 U/L Alkaline Phosphatase 235 IU/L WBC 3.9 10 3/uL RBC 3.22 10 6/uL HGB 9.2 g/dL HCT 29.9 % MCV 92.9 fL MCH 28.6 pg MCHC 30.8 g/dL RDW 20.7 % Platelet Count 450 10 3/cmm MPV 9.0 fL Neutrophils 2.1 10 3/uL Lymphocytes 1.2 10 3/uL Monocytes 0.4 10 3/uL Eosinophils 0.0 10 3/uL Basophils 0.0 10 3/uL Neutrophil % 55.6 % Lymphocyte % 30.9 % Monocyte % 11.2 % Eosinophil % 0.8 % Basophils % 1.0 % NRBC % 0 % CA 19-9 58745 U/mL Test performed on Nov 08, 2019 13:07 CBC Slide Review Slide Review Perform SLIDE REVIEW AGREES WITH AUTOMATED RESULTS ST Test performed on Nov 01, 2019 08:35 TSH 20.94 uIU/mL Test performed on September 25, 2019 09:00 Manual Bands % 11.0 % Manual Lymphs % 3 % Manual Monos % 3.0 % Metamyelocytes % 2.0 % Myelocytes % 2.0 % Polychromasia 2+ Anisocytosis 2+ Macrocytosis 1+ Microcytosis 1+ Manual Bands Abs 3.2 10 3/cmm Manual Monocytes Abs 0.9 10 3/cmm Test performed on Aug 16, 2019 08:57 Manual Eosinophils 1 % CEA 113.9 ng/mL Impression: Moderately differentiated adenocarcinoma per ultrasound-guided liver biopsy done on 07/17/2019, immunohistochemistry positive for CK 7, vimentin, high molecular weight CK, CA 19???9, NICOLAS. CT scan of abdomen pelvis done on 07/10/2019 showed a mass in the pancreatic tail measuring 2.6 x 2.7 x 4.9 cm containing mostly soft tissue density having less enhancement than normal pancreas, highly suggestive of primary malignancy and having invaded and occluded the splenic vein, concern for developing invasion of splenic artery. Multiple liver masses consistent with metastatic disease. Large pelvic mass having density suggestive of ovarian cyst, but cystoadenoma not excluded considering rim calcification in the mass, status post hysterectomy and bilateral oophorectomy for repeated awaiting cysts Sclerotic focus in T10, questionable second bone island considering possible bone island in the left superior acetabulum. History of hypothyroidism History of hyperlipidemia Ms. Bone was offered treatment with FOLFIRI Pang. She began her first cycle on August 16, 2019. It is concerning taht her markedly increased tumor marker CA 19???9 and now is fluctuating , f/u . CT scan of abdomen pelvis done on 10/18/2019 showed pancreatic tail mass with more low-attenuation and changes and overall slightly increased in size now 2.9 x 2.1 cm and again seen numerous large metastatic hepatic lesion slight increase in size from previous and more surrounding heterogeneous enhancement in the largest lesion is 4.2 x 5.7 cm right hepatic lobe increased from 3.2 x 4.[address] scan on 07/10/2019. Unchanged chronic occlusion of splenic vein. Large low-attenuation pelvic lesion measuring 12.1 x 9.9 cm not significantly changed. Stable sclerotic focus at T10 and left superior acetabulum unchanged As follow-up CT scan of abdomen pelvis showed disease progression, so folfirinox was discontinued after 5 cycles on 10/10/2019 and she was switched to weekly Abraxane/gemcitabine. She was able to complete day 1 & 8 of cycle 1. Day 15 was held due to thrombocytopenia. Platelets had dropped from 141,000 on day 8 to 90,000 on day 15. Her ANC had dropped from 6000 on day 8 to 2000 on day 15. Plan: Discussed with patient regarding her labs white blood count 3.9 hemoglobin 9.2 hematocrit 29.9 platelets 450,000 neutrophil count 2.1 CMP within normal limits CA 19???9 19,280 Clinically, patient is doing well, tolerating palliative therapy with gemcitabine/Abraxane well but with expected side effects e.g. progressive leukopenia and now with hair loss. We will proceed with a day 8 chemotherapy with Abraxane/gemcitabine today followed by Neulasta to prevent chemotherapy-induced neutropenia/leukopenia and then she will return to clinic in 2 weeks with CBC CMP. Signed By: Thomas Moreno M.D. <<Signature on File>>
[2019-11-28 15:32] LABS: Basophils % 0.5 %; Eosinophils # 0.1 10^3/uL (0.0-0.8); Eosinophils % 1.6 %; Hematocrit 30.7 % (37.0-47.0); Hemoglobin 9.4 g/dL (11.5-15.3); Lymphocytes # 1.5 10^3/uL (0.8-4.8); Lymphocytes % 24.8 %; Mean Corpuscular HGB Conc 30.6 g/dL (30.0-36.0); Mean Corpuscular Hemoglobin 29.5 pg (28.0-34.0); Mean Corpuscular Volume 96.2 fL (81-99); Mean Platelet Volume 9.9 fL (7.4-10.4); Monocytes # 0.2 10^3/uL (0.2-0.9); Monocytes % 3.1 %; Neutrophils # 4.3 10^3/uL (1.8-7.7); Neutrophils % 69.4 %; Nucleated Red Blood Cells % 0 %; Platelet Count 236 10^3/cmm (130-400); Red Blood Count 3.19 10^6/uL (4.1-5.3); Red Cell Distribution Width 20.4 % (12.1-15.1); White Blood Count 6.2 10^3/uL (4.0-10.0)
[2019-11-28 16:04] LABS: Alanine Aminotransferase 27 U/L (0-33); Albumin Level 4.2 g/dL (3.5-5.2); Alkaline Phosphatase 238 IU/L (35-105); Aspartate Amino Transferase 29 U/L (0-32); Blood Urea Nitrogen 9 mg/dL (8-23); Calcium 9.6 mg/dL (8.5-10.5); Carbon Dioxide 26 mmol/L (22-29); Chloride 96 mmol/L (98-107); Globulin 3.2 g/dL (1.3-4.6); Glucose 118 mg/dL (65-115); Osmolality Calculated 277 mOsm/kg (285-295); Sodium 135 mmol/L (136-145); Total Bilirubin 0.3 mg/dL (0.15-1.2); Total Protein 7.4 g/dL (6.6-8.7)
[2019-12-06 09:04] LABS: Basophils % 0.1 %; Eosinophils # 0.1 10^3/uL (0.0-0.8); Eosinophils % 1.2 %; Hematocrit 31.1 % (37.0-47.0); Hemoglobin 9.4 g/dL (11.5-15.3); Lymphocytes # 0.8 10^3/uL (0.8-4.8); Lymphocytes % 10.2 %; Mean Corpuscular HGB Conc 30.2 g/dL (30.0-36.0); Mean Corpuscular Hemoglobin 29.1 pg (28.0-34.0); Mean Corpuscular Volume 96.3 fL (81-99); Mean Platelet Volume 9.1 fL (7.4-10.4); Monocytes # 0.9 10^3/uL (0.2-0.9); Monocytes % 10.5 %; Neutrophils # 6.38 10^3/uL (1.8-7.7); Neutrophils % 77.8 %; Nucleated Red Blood Cells % 0 %; Platelet Count 464 10^3/cmm (130-400); Red Blood Count 3.23 10^6/uL (4.1-5.3); Red Cell Distribution Width 20.8 % (12.1-15.1); White Blood Count 8.2 10^3/uL (4.0-10.0)
[2019-12-06 09:22] LABS: Alanine Aminotransferase 10 U/L (0-33); Albumin Level 4.1 g/dL (3.5-5.2); Alkaline Phosphatase 265 IU/L (35-105); Anion Gap 13.1 (5-19); Aspartate Amino Transferase 16 U/L (0-32); Blood Urea Nitrogen 12 mg/dL (8-23); Carbon Dioxide 25 mmol/L (22-29); Chloride 99 mmol/L (98-107); Globulin 2.6 g/dL (1.3-4.6); Glucose 145 mg/dL (65-115); Osmolality Calculated 275 mOsm/kg (285-295); Potassium 4.1 mmol/L (3.5-5.1); Sodium 133 mmol/L (136-145); Total Bilirubin 0.2 mg/dL (0.15-1.2); Total Protein 6.7 g/dL (6.6-8.7)
[2019-12-07] MEDS: sodium chloride 0.9% 250 ML 75 ML IV (08:55)
--- NOTE | 2019-12-07 11:39 | ONC FU_ITS ---
Dr. Moreno follow up note Patient: Anyi Bone Unit #: [id number]: 1945 Dicatated By: Thomas Moreno M.D.Date of Visit:Dec 07, 2019 Onc Med Follow-up/Prog Note History of Present Illness: Mrs. Bone is a 74-year-old female who was admitted to [facility] on 07/10/2019 with right upper quadrant abdominal pain. CT of the abdomen pelvis from July 10, 2019 reported multiple liver masses containing soft tissue density the largest measuring 4.5 cm in greatest diameter; no demonstration of these masses on the prior ultrasound from 01/05/2019. Gallbladder and bile ducts revealed no calcified stones no ductal dilatation. Pancreas reported relatively ill-defined margins of the mass in the pancreatic tail measuring 2.6 x 2.7 x 4.9 cm containing mostly soft tissue density having less enhancement than the normal pancreas; small anterior focus of water density in this mass the spleen revealed no splenomegaly. The adrenals an kidneys were unremarkable. The stomach and bowel reported at least moderate sigmoid colonic diverticulosis but no obstruction. Normal appendix. The intraperitoneal space had no free air and no apparent free fluid. Vascular. No normal splenic vein; probable invasion occlusion of the splenic vein by the pancreatic mass, especially considering the small varices in the splenic hilus. Concerning for development of invasion of the splenic artery in light of the lack of fat between the mass and the artery and the apparent slight irregularity of part of the arterial margin. There was no aortic aneurysm or enlargement of the periportal nodes or other abdominal and pelvic nodes. There was a small metallic density in the left side of the vaginal cuff and in the left pelvis adjacent to the sigmoid colon. Over 12 mm calcification adjacent to the left margin of the the approximately 10 x 13.1 x 10.1 cm slightly lobulated pelvic mass containing multiple rim calcifications but mostly homogeneous water density; small focus of slight wall thickening in the anterior inferior margin of the mass along with the medial aspect of the right lobulation. There was possible bone island in the left superior acetabulum. Small sclerotic focus in the left superior aspect of T10, significance unclear. There was noted to be old compression fractures and degeneration of several disc. An ultrasound guided liver biopsy was performed on 07/17/2019 and pathology revealed moderately differentiated adenocarcinoma. Immunohistochemistry was positive for CK 7, vimentin, CA 19???9 NICOLAS. Focally positive for CEA. Mrs Bone is in excellent health otherwise. Medical history significant for hypothyroidism, hyperlipidemia and she has history of hysterectomy in the past. She does moke about half pack a day the last 30 years, denies alcohol use. History of hypothyroidism on thyroid supplements Mrs Bone was seen and was offered treatment with modified FOLFIRI. She started on modified dose for folfirinox every 2 weeks on 08/16/2019. CT scan of abdomen pelvis done on October 18, 2019 showed pancreatic tail mass with more low attenuation and overall slightly increased in size now 2.9 x 2.1 cm and again seen numerous large metastatic hepatic lesions slightly increased in size from previous and largest lesion is 4.2 x 5.7 cm in the right hepatic lobe increased from 3.2 x 4.2 cm seen previously. And large low-attenuation palate lesion measuring 12.1 x 9.9 cm not significantly changed. Stable sclerotic focus at T10 and left superior acetabulum unchanged. And her tumor marker CA 19???9 keep fluctuating in the range of 20,000, with follow-up CT scan finding suggestive of disease progression and persistently markedly elevated tumor marker, it was decided to discontinue FOlforinox and on October 26, 2019 she was switched to weekly Abraxane/gemcitabine. Came for follow-up, denies any specific complaints, no fever chills, no nausea vomiting, no diarrhea constipation, off and on abdominal pain but under control with current pain medication, tolerating systemic therapy with Abraxane/gemcitabine well Medications: HYDROcodone-Acetaminophen 1 Tablet (of 10-325 mg) Oral q 5 hours PRN, Levothyroxine Sodium 1 Tablet (of 75 mcg) Oral daily, Ondansetron HCl 1 Tablet (of 4 mg) Oral q 6 hours PRN Allergies: No Known Allergies. Review of Systems: Constitutional - Appetite is diminished and weight is stable. No fever, chills, hot flashes. Positive for night sweats. Energy level is fair, ENMT - Positive for sinus congestion/drainage. No mouth sores. No sore throat or difficulty swallowing, Hematologic/Lymphatic - Positive for easy bruisnig, Respiratory - No shortness of breath. No cough. No pleuritic pain or hemoptysis, Cardiovascular - No angina pain. No palpitations, Gastrointestinal - Positive for nausea, no vomiting. No heartburn or acid reflux. Positive for diarrhea, no constipation. No blood in the stool or black stools, Genitourinary (F) - No dysuria or hematuria. No urinary frequency. No urgency or incontinence, Musculoskeletal - No joint or bone pain, Neurologic - No headache or dizziness. No numbness/paresthesias or other focal neurologic symptoms, Psychiatric - Positive for anxiety. Vital Signs: Performed on Dec 07, 2019 08:17 Height - 59.00 in Weight - 133.8 lbs (LOW) BSA - 1.55 sq.m BMI - 27.02 Temperature - 97.6 F (LOW) Pulse - 77 /min Respiration - 18 /min BP - 128/76 mm(hg) O2 Sat - 97 % Pain - 0 Performance Status: 1 - No physically strenuous activity, but ambulatory and able to carry out light or sedentary work (e.g. office work, light house work). (ECOG) Physical Examination: ENMT - No mouth sores, no thrush, no jaundice, Respiratory - Lungs are clear, Cardiovascular - Regular rate and rhythm of heart, Abdomen - Soft, bowel sounds present, Extremities - No edema or rash. Lab/Imaging: Test performed on Nov 22, 2019 09:00 Sodium 135 mmol/L Potassium 4.0 mmol/L Chloride 95 mmol/L CO2 27 mmol/L Anion Gap 17.0 BUN 8 mg/dL Creatinine 0.3 mg/dL Cr Clearance (Est) 167.1900 mL/min Glucose 132 mg/dL Calcium 9.1 mg/dL Protein, Total 7.2 g/dL Albumin 3.8 g/dL Globulin 3.4 g/dL Bilirubin, Total 0.4 mg/dL ALT (SGPT) 15 U/L AST (SGOT) 18 U/L Alkaline Phosphatase 235 IU/L WBC 3.9 10 3/uL RBC 3.22 10 6/uL HGB 9.2 g/dL HCT 29.9 % MCV 92.9 fL MCH 28.6 pg MCHC 30.8 g/dL RDW 20.7 % Platelet Count 450 10 3/cmm MPV 9.0 fL Neutrophils 2.1 10 3/uL Lymphocytes 1.2 10 3/uL Monocytes 0.4 10 3/uL Eosinophils 0.0 10 3/uL Basophils 0.0 10 3/uL Neutrophil % 55.6 % Lymphocyte % 30.9 % Monocyte % 11.2 % Eosinophil % 0.8 % Basophils % 1.0 % NRBC % 0 % CA 19-9 54742 U/mL Test performed on Nov 08, 2019 13:07 CBC Slide Review Slide Review Perform SLIDE REVIEW AGREES WITH AUTOMATED RESULTS ST Test performed on Nov 01, 2019 08:35 TSH 20.94 uIU/mL Test performed on September 25, 2019 09:00 Manual Bands % 11.0 % Manual Lymphs % 3 % Manual Monos % 3.0 % Metamyelocytes % 2.0 % Myelocytes % 2.0 % Polychromasia 2+ Anisocytosis 2+ Macrocytosis 1+ Microcytosis 1+ Manual Bands Abs 3.2 10 3/cmm Manual Monocytes Abs 0.9 10 3/cmm Test performed on Aug 16, 2019 08:57 Manual Eosinophils 1 % CEA 113.9 ng/mL Impression: Moderately differentiated adenocarcinoma per ultrasound-guided liver biopsy done on 07/17/2019, immunohistochemistry positive for CK 7, vimentin, high molecular weight CK, CA 19???9, NICOLAS. CT scan of abdomen pelvis done on 07/10/2019 showed a mass in the pancreatic tail measuring 2.6 x 2.7 x 4.9 cm containing mostly soft tissue density having less enhancement than normal pancreas, highly suggestive of primary malignancy and having invaded and occluded the splenic vein, concern for developing invasion of splenic artery. Multiple liver masses consistent with metastatic disease. Large pelvic mass having density suggestive of ovarian cyst, but cystoadenoma not excluded considering rim calcification in the mass, status post hysterectomy and bilateral oophorectomy for repeated awaiting cysts Sclerotic focus in T10, questionable second bone island considering possible bone island in the left superior acetabulum. History of hypothyroidism History of hyperlipidemia Ms. Bone was offered treatment with FOLFIRI Pang. She began her first cycle on August 16, 2019. It is concerning taht her markedly increased tumor marker CA 19???9 and now is fluctuating , f/u . CT scan of abdomen pelvis done on 10/18/2019 showed pancreatic tail mass with more low-attenuation and changes and overall slightly increased in size now 2.9 x 2.1 cm and again seen numerous large metastatic hepatic lesion slight increase in size from previous and more surrounding heterogeneous enhancement in the largest lesion is 4.2 x 5.7 cm right hepatic lobe increased from 3.2 x 4.[address] scan on 07/10/2019. Unchanged chronic occlusion of splenic vein. Large low-attenuation pelvic lesion measuring 12.1 x 9.9 cm not significantly changed. Stable sclerotic focus at T10 and left superior acetabulum unchanged As follow-up CT scan of abdomen pelvis showed disease progression, so folfirinox was discontinued after 5 cycles on 10/10/2019 and she was switched to weekly Abraxane/gemcitabine. She was able to complete day 1 & 8 of cycle 1. Day 15 was held due to thrombocytopenia. Platelets had dropped from 141,000 on day 8 to 90,000 on day 15. Her ANC had dropped from 6000 on day 8 to 2000 on day 15. Plan: Discussed with patient regarding her labs white blood count 8.2 hemoglobin 9.4 hematocrit 31.1 platelets 464,000 CMP within normal limit except glucose 145 Clinically, patient is doing reasonably well, no new signs symptom, tolerating palliative therapy with gemcitabine/Abraxane well, will proceed with next dose today and then she will return to clinic in 1 week with CBC CMP After next dose will consider CT scan of abdomen pelvis to assess disease status if stable, will continue same otherwise if there is evidence of disease progression will consider liposomal irinotecan (onivyde)/5-FU/leucovorin regimen Mild/moderate anemia, hemoglobin stable we will continue to monitor Signed By: Thomas Moreno M.D. <<Signature on File>>
[2019-12-13 08:54] LABS: Basophils # 0.1 10^3/uL (0.0-0.1); Eosinophils # 0.1 10^3/uL (0.0-0.8); Eosinophils % 1.8 %; Hematocrit 29.6 % (37.0-47.0); Hemoglobin 9.1 g/dL (11.5-15.3); Lymphocytes # 0.8 10^3/uL (0.8-4.8); Mean Corpuscular HGB Conc 30.7 g/dL (30.0-36.0); Mean Corpuscular Hemoglobin 29.6 pg (28.0-34.0); Mean Corpuscular Volume 96.4 fL (81-99); Monocytes % 20.9 %; Neutrophils # 2.92 10^3/uL (1.8-7.7); Neutrophils % 59.9 %; Nucleated Red Blood Cells % 0 %; Platelet Count 283 10^3/cmm (130-400); Red Blood Count 3.07 10^6/uL (4.1-5.3); Red Cell Distribution Width 18.8 % (12.1-15.1); White Blood Count 4.9 10^3/uL (4.0-10.0)
[2019-12-13 09:10] LABS: Alanine Aminotransferase 17 U/L (0-33); Albumin Level 3.2 g/dL (3.5-5.2); Alkaline Phosphatase 316 IU/L (35-105); Anion Gap 14.9 (5-19); Aspartate Amino Transferase 20 U/L (0-32); Blood Urea Nitrogen 12 mg/dL (8-23); Calcium 8.5 mg/dL (8.5-10.5); Carbon Dioxide 25 mmol/L (22-29); Chloride 96 mmol/L (98-107); Globulin 3.9 g/dL (1.3-4.6); Glucose 123 mg/dL (65-115); Osmolality Calculated 271 mOsm/kg (285-295); Potassium 3.9 mmol/L (3.5-5.1); Sodium 132 mmol/L (136-145); Total Bilirubin 0.2 mg/dL (0.15-1.2); Total Protein 7.1 g/dL (6.6-8.7)
[2019-12-14] MEDS: sodium chloride 0.9% 250 ML 75 ML IV (09:40)
[2019-12-14 13:22] LABS: Cancer Antigen 19 9 21983 U/mL (0-35)
--- NOTE | 2019-12-15 14:52 | ONC FU_ITS ---
[facility] Patient Note Patient: Anyi Bone Unit #: [id number]: 1945 Dictated By: Beth GarnerDate of Visit: Dec 14, 2019 Onc MED Follow-Up/Prog Note Chief Complaint: metastatic pancreatic cancer History of Present Illness: Mrs. Bone is a 74-year-old female who was admitted to [facility] on 07/10/2019 with right upper quadrant abdominal pain. CT of the abdomen pelvis from July 10, 2019 reported multiple liver masses containing soft tissue density the largest measuring 4.5 cm in greatest diameter; no demonstration of these masses on the prior ultrasound from 01/05/2019. Gallbladder and bile ducts revealed no calcified stones no ductal dilatation. Pancreas reported relatively ill-defined margins of the mass in the pancreatic tail measuring 2.6 x 2.7 x 4.9 cm containing mostly soft tissue density having less enhancement than the normal pancreas; small anterior focus of water density in this mass the spleen revealed no splenomegaly. The adrenals an kidneys were unremarkable. The stomach and bowel reported at least moderate sigmoid colonic diverticulosis but no obstruction. Normal appendix. The intraperitoneal space had no free air and no apparent free fluid. Vascular. No normal splenic vein; probable invasion occlusion of the splenic vein by the pancreatic mass, especially considering the small varices in the splenic hilus. Concerning for development of invasion of the splenic artery in light of the lack of fat between the mass and the artery and the apparent slight irregularity of part of the arterial margin. There was no aortic aneurysm or enlargement of the periportal nodes or other abdominal and pelvic nodes. There was a small metallic density in the left side of the vaginal cuff and in the left pelvis adjacent to the sigmoid colon. Over 12 mm calcification adjacent to the left margin of the the approximately 10 x 13.1 x 10.1 cm slightly lobulated pelvic mass containing multiple rim calcifications but mostly homogeneous water density; small focus of slight wall thickening in the anterior inferior margin of the mass along with the medial aspect of the right lobulation. There was possible bone island in the left superior acetabulum. Small sclerotic focus in the left superior aspect of T10, significance unclear. There was noted to be old compression fractures and degeneration of several disc. An ultrasound guided liver biopsy was performed on 07/17/2019 and pathology revealed moderately differentiated adenocarcinoma. Immunohistochemistry was positive for CK 7, vimentin, CA 19???9 NICOLAS. Focally positive for CEA. Mrs Bone is in excellent health otherwise. Medical history significant for hypothyroidism, hyperlipidemia and she has history of hysterectomy in the past. She does moke about half pack a day the last 30 years, denies alcohol use. History of hypothyroidism on thyroid supplements Mrs Bone was seen and was offered treatment with modified FOLFIRI. She started on modified dose for folfirinox every 2 weeks on 08/16/2019. CT scan of abdomen pelvis done on October 18, 2019 showed pancreatic tail mass with more low attenuation and overall slightly increased in size now 2.9 x 2.1 cm and again seen numerous large metastatic hepatic lesions slightly increased in size from previous and largest lesion is 4.2 x 5.7 cm in the right hepatic lobe increased from 3.2 x 4.2 cm seen previously. And large low-attenuation palate lesion measuring 12.1 x 9.9 cm not significantly changed. Stable sclerotic focus at T10 and left superior acetabulum unchanged. And her tumor marker CA 19???9 keep fluctuating in the range of 20,000, with follow-up CT scan finding suggestive of disease progression and persistently markedly elevated tumor marker, it was decided to discontinue FOlforinox and on October 26, 2019 she was switched to weekly Abraxane/gemcitabine. Ms. Bone is here today for follow-up. She is due for cycle 3-day 8 Abraxane gemcitabine. She has had slight neutropenia with her chemotherapy regimen. She was not given Neulasta on cycle 2-day 8 as it was not approved before she left for the day. It was not a given on cycle 3-day 1 as her ANC that day was 6400. She states she is due for dental cleaning on Wednesday and wanted to make sure she did not need antibiotics. She also states that she is doing pretty good. She states her biggest worry so far has been that she has had nausea when she needs to have a bowel movement. However I spoke with her daughter and she is the daughter states that she is not having bowel movements but about every 3 to 5 days. This would explain the nausea. I spoke with Ms. Bone at length about trying to get her bowels regulated out to going every other day or every third day which was her pattern prior to having cancer. She verbalized understanding and states that she will try to use the stool softeners and laxatives as needed. She states that she gets relief of the nausea with the antiemetics although she does not think she needs to take them very often as the nausea is not that bad. She states that she is trying to be a little bit more active around the house. Her daughter states that she is sleeping and draggy most of the time. She states that she is no not taking more pain medication than she has in the past but just seems more fatigued in general. She denies any diarrhea. She has had no vomiting. She denies mouth sores, sore throat or difficulty swallowing. She denies any neuropathy symptoms. She states she is eating good although her daughter states she is not eating as well she has in the past. Mrs. Bone ECOG is 1. Past Medical History: Hyperlipidemia Hypothyroidism Past Surgical History: Hysterectomy Allergies: No Known Allergies. Medications: HYDROcodone-Acetaminophen 1 Tablet (of 10-325 mg) Oral q 5 hours PRN Levothyroxine Sodium 1 Tablet (of 75 mcg) Oral daily Ondansetron HCl 1 Tablet (of 4 mg) Oral q 6 hours PRN Family History: Father- colon cancer Mother- lung cancer. Social History: Ms. Bone is and she is retired. She is a daily smoker who has smoked 0.5 packs/day for 30 years. She drinks daily. She consumes 1 drink/day. Review Of Symptoms: Constitutional Denies fevers, chills, night sweats, excessive fatigue or weight loss. Allergic/Immunologic No reactions. Eyes Denies significant visual changes. No diplopia. No amaurosis. ENMT Denies changes in hearing, sore throat, mouth sores, difficulty or changes in swallowing ability, and/or sinus drainage. no mouth sores. no taste but not bitter any more. Hematologic/Lymphatic Denies easy bruising or bleeding. The patient denies any tender or palpable lymph nodes. Breasts Respiratory Denies dyspnea on exertion, chest pain, cough or hemoptysis. Denies orthopnea. Cardiovascular Denies anginal chest pain, palpitations or orthopnea. Gastrointestinal Denies nausea, vomiting, diarrhea, GI bleeding, or constipation. Denies change in bowel habits and/or stool color, no heartburn or early satiety. Genitourinary (F) No hematuria, hesitancy, incontinence, vaginal bleeding, discharge or other problems with urination. Musculoskeletal Denies joint pain, swelling or redness. No decreased range of motion. Integumentary Denies chronic rashes, inflammation, ulcerations or skin changes. Neurologic Denies headache, blurred vision, and no areas of focal weakness or numbness. Normal gait. No sensory problems. Psychiatric Denies insomnia, depression, maryjane or mood swings. Vital Signs: Performed on Dec 14, 2019 09:07 Height - 59.00 in Weight - 132.6 lbs (LOW) BSA - 1.55 sq.m BMI - 26.78 Temperature - 97.3 F (LOW) Pulse - 87 /min Respiration - 17 /min BP - 119/73 mm(hg) O2 Sat - 98 % Pain - 0,1 - No physically strenuous activity, but ambulatory and able to carry out light or sedentary work (e.g. office work, light house work). (ECOG) Physical Examination: Constitutional Alert, oriented, no acute distress. Skin pale/pink, warm and dry. Head Normocephalic; atraumatic. Eyes Conjunctivae and sclerae are clear and without icterus. Pupils are reactive and equal. Neck Supple without masses or thyromegaly. No jugular venous distension. Hematologic/Lymphatic No petechiae or purpura. No tender or palpable lymph nodes in the cervical or supraclavicular areas. Respiratory Lungs are clear to auscultation without rhonchi or wheezing. Cardiovascular Regular rate and rhythm of heart without murmurs,clicks, gallops or rubs. Abdomen Non-tender, non-distended, no masses. Good bowel sounds in all quads. Back/Spine Non-tender to palpation. Extremities No visible deformities, no cyanosis, clubbing or edema. Musculoskeletal No tenderness or swelling, normal range of motion without obvious weakness. Integumentary No rashes or lesions. Neurologic No sensory or motor deficits, normal cerebellar function, normal gait. Psychiatric Alert and oriented times three. Coherent speech. Verbalizes understanding of our discussions today. Laboratory:Test performed on Dec 13, 2019 08:26 Sodium 132 mmol/L Potassium 3.9 mmol/L Chloride 96 mmol/L CO2 25 mmol/L Anion Gap 14.9 BUN 12 mg/dL Creatinine 0.3 mg/dL Cr Clearance (Est) 167.1900 mL/min Glucose 123 mg/dL Calcium 8.5 mg/dL Protein, Total 7.1 g/dL Albumin 3.2 g/dL Globulin 3.9 g/dL Bilirubin, Total 0.2 mg/dL ALT (SGPT) 17 U/L AST (SGOT) 20 U/L Alkaline Phosphatase 316 IU/L WBC 4.9 10 3/uL RBC 3.07 10 6/uL HGB 9.1 g/dL HCT 29.6 % MCV 96.4 fL MCH 29.6 pg MCHC 30.7 g/dL RDW 18.8 % Platelet Count 283 10 3/cmm MPV 10.0 fL Neutrophils 2.92 10 3/uL Lymphocytes 0.8 10 3/uL Monocytes 1.0 10 3/uL Eosinophils 0.1 10 3/uL Basophils 0.1 10 3/uL Neutrophil % 59.9 % Lymphocyte % 16.0 % Monocyte % 20.9 % Eosinophil % 1.8 % Basophils % 1.0 % NRBC % 0 % Test performed on Nov 22, 2019 09:00 CA 19-9 74524 U/mL Test performed on Nov 08, 2019 13:07 CBC Slide Review Slide Review Perform SLIDE REVIEW AGREES WITH AUTOMATED RESULTS ST Test performed on Nov 01, 2019 08:35 TSH 20.94 uIU/mL Test performed on September 25, 2019 09:00 Manual Bands % 11.0 % Manual Lymphs % 3 % Manual Monos % 3.0 % Metamyelocytes % 2.0 % Myelocytes % 2.0 % Polychromasia 2+ Anisocytosis 2+ Macrocytosis 1+ Microcytosis 1+ Manual Bands Abs 3.2 10 3/cmm Manual Monocytes Abs 0.9 10 3/cmm Test performed on Aug 16, 2019 08:57 Manual Eosinophils 1 % CEA 113.9 ng/mL Impression: Moderately differentiated adenocarcinoma per ultrasound-guided liver biopsy done on 07/17/2019, immunohistochemistry positive for CK 7, vimentin, high molecular weight CK, CA 19???9, NICOLAS. CT scan of abdomen pelvis done on 07/10/2019 showed a mass in the pancreatic tail measuring 2.6 x 2.7 x 4.9 cm containing mostly soft tissue density having less enhancement than normal pancreas, highly suggestive of primary malignancy and having invaded and occluded the splenic vein, concern for developing invasion of splenic artery. Multiple liver masses consistent with metastatic disease. Large pelvic mass having density suggestive of ovarian cyst, but cystoadenoma not excluded considering rim calcification in the mass, status post hysterectomy and bilateral oophorectomy for repeated awaiting cysts Sclerotic focus in T10, questionable second bone island considering possible bone island in the left superior acetabulum. History of hypothyroidism History of hyperlipidemia Ms. Bone was offered treatment with FOLFIRI Pang. She began her first cycle on August 16, 2019. It is concerning taht her markedly increased tumor marker CA 19???9 and now is fluctuating , f/u . CT scan of abdomen pelvis done on 10/18/2019 showed pancreatic tail mass with more low-attenuation and changes and overall slightly increased in size now 2.9 x 2.1 cm and again seen numerous large metastatic hepatic lesion slight increase in size from previous and more surrounding heterogeneous enhancement in the largest lesion is 4.2 x 5.7 cm right hepatic lobe increased from 3.2 x 4.[address] scan on 07/10/2019. Unchanged chronic occlusion of splenic vein. Large low-attenuation pelvic lesion measuring 12.1 x 9.9 cm not significantly changed. Stable sclerotic focus at T10 and left superior acetabulum unchanged As follow-up CT scan of abdomen pelvis showed disease progression, so folfirinox was discontinued after 5 cycles on 10/10/2019 and she was switched to weekly Abraxane/gemcitabine. She was able to complete day 1 & 8 of cycle 1. Day 15 was held due to thrombocytopenia. Platelets had dropped from 141,000 on day 8 to 90,000 on day 15. Her ANC had dropped from 6000 on day 8 to 2000 on day 15. She will complete cycle 3 of Abraxane gemcitabine today and is due for restaging imaging after this cycle. Plan: 1. Proceed with cycle 3-day 8 Abraxane gemcitabine. 2. We will plan to not give the Neulasta with this cycle as her ANC today is 2900. She has had bone pain with the Neulasta in the past. Her ANC has been lower at day 8 and she has recovered well without the Neulasta. She is aware that if her counts drop we may need to add Neupogen. 3. Labs from December 13, 2019 were reviewed with Ms. Bone and a copy was given to her. White count 4.9, hemoglobin 9.1 platelets 283,000 ANC is 2900 creatinine 0.3 LFTs are normal alk phos chronically elevated at 316. Her last CA-19-9 was November 22, 2019 at which time it was 19,280. She has not had a follow-up TSH in some time and has had thyroid medication adjustments. Her last TSH was 20. She is currently on 100 mcg of Synthroid daily. A TSH was requested for today. 4. Mrs. Bone daughter, Zunilda Lopes request that we call her after every visit his she is not coming in due to the COVID pandemic. Zunilda is cell phone # is [phone]. 5. We will plan to see Ms. Bone back in 2 weeks with CBC CMP. We will call her with results of the TSH and I did add another CA-19-9 to blood in lab. 6. I did request that she have restaging imaging with CT of the abdomen pelvis with contrast and compared to the October 18, 2019 scan. This is follow-up post chemotherapy and the fact that her CA-19-9 continues to rise. She will need follow-up with Dr. Moreno in [address] results and determine a further plan of care at that time. 7. Mrs. Bone was instructed to contact us in the interim should questions or problems arise. Signed By: Beth Garner-, AOCNP Thomas Moreno MD <<Signature on File>>
== END 2019-12-22 23:59 | disposition home or self-care (01) ==
LOC: ONCMED 06:39
PROVIDERS: Internal Medicine; Internal Medicine Hematology & Oncology; PCP Family Medicine; Visit Provider Nurse Practitioner
DX: Z51.11 Encounter for antineoplastic chemotherapy (principal); C25.2 Malignant neoplasm of tail of pancreas; C78.7 Secondary malignant neoplasm of liver and intrahepatic bile duct; R97.8 Other abnormal tumor markers; E03.9 Hypothyroidism, unspecified; E78.5 Hyperlipidemia, unspecified; D64.9 Anemia, unspecified; F17.210 Nicotine dependence, cigarettes, uncomplicated; Z79.891 Long term (current) use of opiate analgesic
CPT/HCPCS: 36591; 80053; 84443; 85025; 86301; 96367; 96413; 96417; 99214; J1100; J2469; J3490; J7050; J9201; J9264

== ENCOUNTER 2020-01-18 05:35 | Outpatient (RCR) | payer MEDICARE, SELFPAY ==
--- NOTE | 2019-12-26 09:30 | CT_ITS ---
WS: [id number] CT ABDOMEN PELVIS TECHNIQUE: Contrast-enhanced CT of the abdomen and pelvis with coronal and sagittal reformatted image s. CLINICAL INFORMATION: RESTAGING PANCREATIC CANCER WITH LIVER METS,ELEVATED CA COMPARISON: CT October 18, 2019 July 10, 2019 DLP: 1062.[address] scans at [facility] use at least one of these dose optimization techniques: automat ed exposure control; mA and/or kV adjustment per patient size (includes targeted exams where dose is matched to clinical indication); or iterative reconstruction. FINDINGS: Heterogeneous enhancing low-attenuation lesion in the tail the pancreas previously measuring 2.1 x 2. 9 cm has decreased in size and today measures 1.3 x 0.8 cm. Again seen are multiple heterogeneous metastatic lesions in the liver with progressed disease in the right hepatic lobe. The largest conglomerate area in the right hepatic lobe today measures 5.4 x 4.9 x 9.9 cm increased from previous. Additional large left hepatic lesions the largest in left hepatic lobe medially measuring 4.1 x 3.3 c m compared to previous measuring 4.6 x 3.5 cm. Similar-appearing additional hepatic lesions measuring 1.9 and 2.2 cm respectively also decreased from previous. Portal vein is patent. Splenic vein is chronically occluded. Normal adrenal glands. Normal renal pare nchymal enhancement. No hydronephrosis. Lung bases are well aerated. Again seen is the large low-atte nuation pelvic lesion measuring approximately 12.1 x 9.9 cm not significantly changed. Differential c onsiderations are unchanged and include ovarian cyst versus mucinous and serous cystadenoma/cystadeno carcinoma. No periaortic or inguinal lymphadenopathy. Stable sclerotic foci at T10 and superior aceta bulum. CT/CT abdomen pelvis w con* [id number] IMPRESSION: 1. Significant improvement in the pancreatic tail mass today measuring 1.3 x 0 .8 cm 2. Progressed diffuse conglomerates heterogeneous enhancing metastatic disease in the right hepatic lobe today. 3. Persistent metastatic lesions in the left hepatic lobe which have improved in size. 4. 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 5. Large low-attenuation pelvic lesion measuring 12.1 x 9.9 cm not significant ly changed. Differential considerations are unchanged 6. Stable sclerotic focus at T10 and left superior acetabulum unchanged
[2019-12-26] MEDS: iohexol 300 mg/mL 50 mL Btl PO (10:34)
[2019-12-26] MEDS: iohexol 300 mg/mL 100 mL Btl IV (11:05)
[2019-12-27 09:06] LABS: Basophils % 0.4 %; Eosinophils # 0.3 10^3/uL (0.0-0.8); Hematocrit 31.4 % (37.0-47.0); Hemoglobin 9.6 g/dL (11.5-15.3); Lymphocytes # 1.6 10^3/uL (0.8-4.8); Lymphocytes % 18.5 %; Mean Corpuscular HGB Conc 30.6 g/dL (30.0-36.0); Mean Corpuscular Hemoglobin 29.3 pg (28.0-34.0); Mean Corpuscular Volume 95.7 fL (81-99); Mean Platelet Volume 9.1 fL (7.4-10.4); Monocytes # 1.3 10^3/uL (0.2-0.9); Monocytes % 15.4 %; Neutrophils # 5.21 10^3/uL (1.8-7.7); Neutrophils % 62.3 %; Nucleated Red Blood Cells % 0 %; Platelet Count 561 10^3/cmm (130-400); Red Blood Count 3.28 10^6/uL (4.1-5.3); Red Cell Distribution Width 18.6 % (12.1-15.1); White Blood Count 8.4 10^3/uL (4.0-10.0)
[2019-12-27 09:35] LABS: Alanine Aminotransferase 10 U/L (0-33); Albumin Level 3.6 g/dL (3.5-5.2); Alkaline Phosphatase 343 IU/L (35-105); Anion Gap 15.8 (5-19); Aspartate Amino Transferase 15 U/L (0-32); Blood Urea Nitrogen 6 mg/dL (8-23); Calcium 8.3 mg/dL (8.5-10.5); Carbon Dioxide 24 mmol/L (22-29); Chloride 98 mmol/L (98-107); Globulin 3.5 g/dL (1.3-4.6); Glucose 196 mg/dL (65-115); Osmolality Calculated 279 mOsm/kg (285-295); Potassium 3.8 mmol/L (3.5-5.1); Sodium 134 mmol/L (136-145); Thyroid Stimulating Hormone 8.16 uIU/mL (0.27-4.20); Total Bilirubin 0.2 mg/dL (0.15-1.2); Total Protein 7.1 g/dL (6.6-8.7)
[2019-12-28] MEDS: sodium chloride 0.9% 250 ML 75 ML IV (10:10)
--- NOTE | 2019-12-29 12:35 | ONC FU_ITS ---
Dr. Moreno follow up note Patient: Anyi Bone Unit #: [id number]: 1945 Dicatated By: Thomas Moreno M.D.Date of Visit:Dec 28, 2019 Onc Med Follow-up/Prog Note History of Present Illness: Mrs. Bone is a 74-year-old female who was admitted to [facility] on 07/10/2019 with right upper quadrant abdominal pain. CT of the abdomen pelvis from July 10, 2019 reported multiple liver masses containing soft tissue density the largest measuring 4.5 cm in greatest diameter; no demonstration of these masses on the prior ultrasound from 01/05/2019. Gallbladder and bile ducts revealed no calcified stones no ductal dilatation. Pancreas reported relatively ill-defined margins of the mass in the pancreatic tail measuring 2.6 x 2.7 x 4.9 cm containing mostly soft tissue density having less enhancement than the normal pancreas; small anterior focus of water density in this mass the spleen revealed no splenomegaly. The adrenals an kidneys were unremarkable. The stomach and bowel reported at least moderate sigmoid colonic diverticulosis but no obstruction. Normal appendix. The intraperitoneal space had no free air and no apparent free fluid. Vascular. No normal splenic vein; probable invasion occlusion of the splenic vein by the pancreatic mass, especially considering the small varices in the splenic hilus. Concerning for development of invasion of the splenic artery in light of the lack of fat between the mass and the artery and the apparent slight irregularity of part of the arterial margin. There was no aortic aneurysm or enlargement of the periportal nodes or other abdominal and pelvic nodes. There was a small metallic density in the left side of the vaginal cuff and in the left pelvis adjacent to the sigmoid colon. Over 12 mm calcification adjacent to the left margin of the the approximately 10 x 13.1 x 10.1 cm slightly lobulated pelvic mass containing multiple rim calcifications but mostly homogeneous water density; small focus of slight wall thickening in the anterior inferior margin of the mass along with the medial aspect of the right lobulation. There was possible bone island in the left superior acetabulum. Small sclerotic focus in the left superior aspect of T10, significance unclear. There was noted to be old compression fractures and degeneration of several disc. An ultrasound guided liver biopsy was performed on 07/17/2019 and pathology revealed moderately differentiated adenocarcinoma. Immunohistochemistry was positive for CK 7, vimentin, CA 19???9 NICOLAS. Focally positive for CEA. Mrs Bone is in excellent health otherwise. Medical history significant for hypothyroidism, hyperlipidemia and she has history of hysterectomy in the past. She does moke about half pack a day the last 30 years, denies alcohol use. History of hypothyroidism on thyroid supplements Mrs Bone was seen and was offered treatment with modified FOLFIRI. She started on modified dose for folfirinox every 2 weeks on 08/16/2019. CT scan of abdomen pelvis done on October 18, 2019 showed pancreatic tail mass with more low attenuation and overall slightly increased in size now 2.9 x 2.1 cm and again seen numerous large metastatic hepatic lesions slightly increased in size from previous and largest lesion is 4.2 x 5.7 cm in the right hepatic lobe increased from 3.2 x 4.2 cm seen previously. And large low-attenuation palate lesion measuring 12.1 x 9.9 cm not significantly changed. Stable sclerotic focus at T10 and left superior acetabulum unchanged. And her tumor marker CA 19???9 keep fluctuating in the range of 20,000, with follow-up CT scan finding suggestive of disease progression and persistently markedly elevated tumor marker, it was decided to discontinue FOlforinox and on October 26, 2019 she was switched to weekly Abraxane/gemcitabine. Follow-up CT scan of abdomen pelvis done on December 26, 2019 showed significant improvement in the pancreatic tail mass measuring 1.3 x 0.8 cm compared to 2.1 x 2.9 cm on October 18, 2019 Persistent metastatic lesion in the left hepatic lobe improved, now measuring 4.1 x 3.3 cm compared to 4.6 x 3.5 cm before, similarly additional hepatic lesions measuring 1.9 to 2.2 cm also decreased from previous But progressed diffuse conglomerates heterogeneous enhancing metastatic disease in the right hepatic lobe now measuring 5.4 x 4.9 x 9.9 cm compared to 5.7 x 4.2 x 5.1 in September 2019. And persistent large low-attenuation pelvic mass measuring 12.1 x 9.9 cm not significantly changed which could be ovarian cyst versus mucinous and serous cystadenoma/cystadenocarcinoma. No periaortic or inguinal lymphadenopathy. Stable sclerotic foci at T10 and superior acetabulum. Came for follow-up, denies any specific complaints except persistent right upper quadrant pain which is under control with current pain medication but no nausea or vomiting no diarrhea constipation no fever chills no jaundice, tolerating palliative chemotherapy with Abraxane/gemcitabine well Medications: HYDROcodone-Acetaminophen 1 Tablet (of 10-325 mg) Oral q 5 hours PRN, Levothyroxine Sodium 1 Tablet (of 100 mcg) Oral daily, Ondansetron HCl 1 Tablet (of 4 mg) Oral q 6 hours PRN Allergies: No Known Allergies. Review of Systems: Constitutional - Appetite is diminished and weight is stable. No fever, chills, hot flashes. Positive for night sweats. Energy level is fair, ENMT - Positive for sinus congestion/drainage. No mouth sores. No sore throat or difficulty swallowing, Hematologic/Lymphatic - Positive for easy bruisnig, Respiratory - No shortness of breath. No cough. No pleuritic pain or hemoptysis, Cardiovascular - No angina pain. No palpitations, Gastrointestinal - Positive for nausea, no vomiting. No heartburn or acid reflux. Positive for diarrhea, no constipation. No blood in the stool or black stools, Genitourinary (F) - No dysuria or hematuria. No urinary frequency. No urgency or incontinence, Musculoskeletal - No joint or bone pain, Neurologic - No headache or dizziness. No numbness/paresthesias or other focal neurologic symptoms, Psychiatric - Positive for anxiety. Vital Signs: Performed on Dec 28, 2019 12:00 Height - 59.00 in Temperature - 97.8 F (LOW) Pulse - 73 /min Respiration - 18 /min BP - 159/90 mm(hg) (HIGH) O2 Sat - 99 % Pain - 0 Fatigue - 0 Performed on Dec 28, 2019 08:33 Height - 59.00 in Weight - 132.0 lbs (LOW) BSA - 1.55 sq.m BMI - 26.66 Temperature - 97.4 F (LOW) Pulse - 90 /min Respiration - 20 /min BP - 121/71 mm(hg) O2 Sat - 99 % Pain - 0 Performance Status: 1 - No physically strenuous activity, but ambulatory and able to carry out light or sedentary work (e.g. office work, light house work). (ECOG) Physical Examination: ENMT - No mouth sores, no thrush, no jaundice, Respiratory - Lungs are clear, Cardiovascular - Regular rate and rhythm of heart, Abdomen - Soft, bowel sounds present, Extremities - Trace edema bilateral. Lab/Imaging: Test performed on Dec 13, 2019 08:26 Sodium 132 mmol/L Potassium 3.9 mmol/L Chloride 96 mmol/L CO2 25 mmol/L Anion Gap 14.9 BUN 12 mg/dL Creatinine 0.3 mg/dL Cr Clearance (Est) 167.1900 mL/min Glucose 123 mg/dL Calcium 8.5 mg/dL Protein, Total 7.1 g/dL Albumin 3.2 g/dL Globulin 3.9 g/dL Bilirubin, Total 0.2 mg/dL ALT (SGPT) 17 U/L AST (SGOT) 20 U/L Alkaline Phosphatase 316 IU/L WBC 4.9 10 3/uL RBC 3.07 10 6/uL HGB 9.1 g/dL HCT 29.6 % MCV 96.4 fL MCH 29.6 pg MCHC 30.7 g/dL RDW 18.8 % Platelet Count 283 10 3/cmm MPV 10.0 fL Neutrophils 2.92 10 3/uL Lymphocytes 0.8 10 3/uL Monocytes 1.0 10 3/uL Eosinophils 0.1 10 3/uL Basophils 0.1 10 3/uL Neutrophil % 59.9 % Lymphocyte % 16.0 % Monocyte % 20.9 % Eosinophil % 1.8 % Basophils % 1.0 % NRBC % 0 % Test performed on Nov 22, 2019 09:00 CA 19-9 69520 U/mL Test performed on Nov 08, 2019 13:07 CBC Slide Review Slide Review Perform SLIDE REVIEW AGREES WITH AUTOMATED RESULTS ST Test performed on Nov 01, 2019 08:35 TSH 20.94 uIU/mL Test performed on September 25, 2019 09:00 Manual Bands % 11.0 % Manual Lymphs % 3 % Manual Monos % 3.0 % Metamyelocytes % 2.0 % Myelocytes % 2.0 % Polychromasia 2+ Anisocytosis 2+ Macrocytosis 1+ Microcytosis 1+ Manual Bands Abs 3.2 10 3/cmm Manual Monocytes Abs 0.9 10 3/cmm Test performed on Aug 16, 2019 08:57 Manual Eosinophils 1 % CEA 113.9 ng/mL Impression: Moderately differentiated adenocarcinoma per ultrasound-guided liver biopsy done on 07/17/2019, immunohistochemistry positive for CK 7, vimentin, high molecular weight CK, CA 19???9, NICOLAS. CT scan of abdomen pelvis done on 07/10/2019 showed a mass in the pancreatic tail measuring 2.6 x 2.7 x 4.9 cm containing mostly soft tissue density having less enhancement than normal pancreas, highly suggestive of primary malignancy and having invaded and occluded the splenic vein, concern for developing invasion of splenic artery. Multiple liver masses consistent with metastatic disease. Large pelvic mass having density suggestive of ovarian cyst, but cystoadenoma not excluded considering rim calcification in the mass, status post hysterectomy and bilateral oophorectomy for repeated awaiting cysts Sclerotic focus in T10, questionable second bone island considering possible bone island in the left superior acetabulum. History of hypothyroidism History of hyperlipidemia Ms. Bone was offered treatment with FOLFIRI Pang. She began her first cycle on August 16, 2019. It is concerning taht her markedly increased tumor marker CA 19???9 and now is fluctuating , f/u . CT scan of abdomen pelvis done on 10/18/2019 showed pancreatic tail mass with more low-attenuation and changes and overall slightly increased in size now 2.9 x 2.1 cm and again seen numerous large metastatic hepatic lesion slight increase in size from previous and more surrounding heterogeneous enhancement in the largest lesion is 4.2 x 5.7 cm right hepatic lobe increased from 3.2 x 4.[address] scan on 07/10/2019. Unchanged chronic occlusion of splenic vein. Large low-attenuation pelvic lesion measuring 12.1 x 9.9 cm not significantly changed. Stable sclerotic focus at T10 and left superior acetabulum unchanged As follow-up CT scan of abdomen pelvis showed disease progression, so folfirinox was discontinued after 5 cycles on 10/10/2019 and she was switched to weekly Abraxane/gemcitabine. She was able to complete day 1 & 8 of cycle 1. Day 15 was held due to thrombocytopenia. Platelets had dropped from 141,000 on day 8 to 90,000 on day 15. Her ANC had dropped from 6000 on day 8 to 2000 on day 15. Plan: Discussed with the patient regarding her labs white blood count 4.8 hemoglobin 9.6 hematocrit 31.4 platelets 561,000 CMP within normal limit except alk phos 343 and [place] 19[place] [id number] [place] [address] on December 13, 2019 and follow-up CT scan of abdomen pelvis which showed mixed response, improvement in the pancreatic tail mass and left hepatic lobe lesion but progression in the right hepatic lobe and stable pelvic mass of undetermined etiology Clinically, patient is doing reasonably well with decent palliation with weekly Abraxane/gemcitabine, tolerating well but with expected side effects her follow-up CT scan of abdomen pelvis shows mixed response e.g. primary and pancreatic tail has improved significantly as well as left hepatic lobe lesion and adjoining lesions but significant progression seen in the right lobe of the liver lesion. And her tumor marker CA 19???9 is markedly elevated and continues to go up at this point treatment options including hospice was discussed, patient wants to explore any other option available in the meantime she wants to continue with her palliative chemotherapy with weekly gemcitabine/Abraxane Role of intra-arterial hepatic chemotherapy was discussed and patient is interested so we will refer her to Dr. Tejada in [place] for evaluation, as her CT scan of abdomen pelvis shows bulk of disease in the liver and good response and pancreatic tail mass and if she is a candidate for that, in that case SBRT to pancreatic tail mass can be considered and as well as removal of pelvic mass, if possible otherwise her prognosis is guarded. Case was discussed with her daughter also and both agreed. Dr. Tejada will be back in his office on Wednesday January 01, 2020, will discuss her case with him. In the meantime we will proceed with her next scheduled dose of chemotherapy with Abraxane/gemcitabine today and then she will return to clinic in 1 week with CBC CMP Signed By: Thomas Moreno M.D. <<Signature on File>>
[2020-01-03 08:39] LABS: Basophils % 0.4 %; Eosinophils # 0.2 10^3/uL (0.0-0.8); Eosinophils % 1.9 %; Hemoglobin 8.8 g/dL (11.5-15.3); Lymphocytes # 1.3 10^3/uL (0.8-4.8); Lymphocytes % 12.5 %; Mean Corpuscular HGB Conc 31.4 g/dL (30.0-36.0); Mean Corpuscular Hemoglobin 29.8 pg (28.0-34.0); Mean Corpuscular Volume 94.9 fL (81-99); Mean Platelet Volume 9.7 fL (7.4-10.4); Monocytes # 1.6 10^3/uL (0.2-0.9); Monocytes % 16.2 %; Neutrophils # 6.91 10^3/uL (1.8-7.7); Neutrophils % 68.2 %; Nucleated Red Blood Cells % 0 %; Platelet Count 265 10^3/cmm (130-400); Red Blood Count 2.95 10^6/uL (4.1-5.3); Red Cell Distribution Width 17.9 % (12.1-15.1); White Blood Count 10.1 10^3/uL (4.0-10.0)
[2020-01-03 09:07] LABS: Alanine Aminotransferase 25 U/L (0-33); Albumin Level 3.3 g/dL (3.5-5.2); Alkaline Phosphatase 481 IU/L (35-105); Anion Gap 14.3 (5-19); Aspartate Amino Transferase 31 U/L (0-32); Blood Urea Nitrogen 7 mg/dL (8-23); Calcium 8.2 mg/dL (8.5-10.5); Carbon Dioxide 26 mmol/L (22-29); Chloride 94 mmol/L (98-107); Globulin 3.5 g/dL (1.3-4.6); Glucose 140 mg/dL (65-115); Osmolality Calculated 270 mOsm/kg (285-295); Potassium 3.3 mmol/L (3.5-5.1); Sodium 131 mmol/L (136-145); Thyroid Stimulating Hormone 6.43 uIU/mL (0.27-4.20); Total Bilirubin 0.4 mg/dL (0.15-1.2); Total Protein 6.8 g/dL (6.6-8.7)
[2020-01-04] MEDS: sodium chloride 0.9% 250 ML 75 ML IV (08:55)
--- NOTE | 2020-01-04 13:10 | ONC FU_ITS ---
Dr. Moreno follow up note Patient: Anyi Bone Unit #: [id number]: 1945 Dicatated By: Thomas Moreno M.D.Date of Visit:Jan 04, 2020 Onc Med Follow-up/Prog Note History of Present Illness: Mrs. Bone is a 74-year-old female who was admitted to [facility] on 07/10/2019 with right upper quadrant abdominal pain. CT of the abdomen pelvis from July 10, 2019 reported multiple liver masses containing soft tissue density the largest measuring 4.5 cm in greatest diameter; no demonstration of these masses on the prior ultrasound from 01/05/2019. Gallbladder and bile ducts revealed no calcified stones no ductal dilatation. Pancreas reported relatively ill-defined margins of the mass in the pancreatic tail measuring 2.6 x 2.7 x 4.9 cm containing mostly soft tissue density having less enhancement than the normal pancreas; small anterior focus of water density in this mass the spleen revealed no splenomegaly. The adrenals an kidneys were unremarkable. The stomach and bowel reported at least moderate sigmoid colonic diverticulosis but no obstruction. Normal appendix. The intraperitoneal space had no free air and no apparent free fluid. Vascular. No normal splenic vein; probable invasion occlusion of the splenic vein by the pancreatic mass, especially considering the small varices in the splenic hilus. Concerning for development of invasion of the splenic artery in light of the lack of fat between the mass and the artery and the apparent slight irregularity of part of the arterial margin. There was no aortic aneurysm or enlargement of the periportal nodes or other abdominal and pelvic nodes. There was a small metallic density in the left side of the vaginal cuff and in the left pelvis adjacent to the sigmoid colon. Over 12 mm calcification adjacent to the left margin of the the approximately 10 x 13.1 x 10.1 cm slightly lobulated pelvic mass containing multiple rim calcifications but mostly homogeneous water density; small focus of slight wall thickening in the anterior inferior margin of the mass along with the medial aspect of the right lobulation. There was possible bone island in the left superior acetabulum. Small sclerotic focus in the left superior aspect of T10, significance unclear. There was noted to be old compression fractures and degeneration of several disc. An ultrasound guided liver biopsy was performed on 07/17/2019 and pathology revealed moderately differentiated adenocarcinoma. Immunohistochemistry was positive for CK 7, vimentin, CA 19???9 NICOLAS. Focally positive for CEA. Mrs Bone is in excellent health otherwise. Medical history significant for hypothyroidism, hyperlipidemia and she has history of hysterectomy in the past. She does moke about half pack a day the last 30 years, denies alcohol use. History of hypothyroidism on thyroid supplements Mrs Bone was seen and was offered treatment with modified FOLFIRI. She started on modified dose for folfirinox every 2 weeks on 08/16/2019. CT scan of abdomen pelvis done on October 18, 2019 showed pancreatic tail mass with more low attenuation and overall slightly increased in size now 2.9 x 2.1 cm and again seen numerous large metastatic hepatic lesions slightly increased in size from previous and largest lesion is 4.2 x 5.7 cm in the right hepatic lobe increased from 3.2 x 4.2 cm seen previously. And large low-attenuation palate lesion measuring 12.1 x 9.9 cm not significantly changed. Stable sclerotic focus at T10 and left superior acetabulum unchanged. And her tumor marker CA 19???9 keep fluctuating in the range of 20,000, with follow-up CT scan finding suggestive of disease progression and persistently markedly elevated tumor marker, it was decided to discontinue FOlforinox and on October 26, 2019 she was switched to weekly Abraxane/gemcitabine. Follow-up CT scan of abdomen pelvis done on December 26, 2019 showed significant improvement in the pancreatic tail mass measuring 1.3 x 0.8 cm compared to 2.1 x 2.9 cm on October 18, 2019 Persistent metastatic lesion in the left hepatic lobe improved, now measuring 4.1 x 3.3 cm compared to 4.6 x 3.5 cm before, similarly additional hepatic lesions measuring 1.9 to 2.2 cm also decreased from previous But progressed diffuse conglomerates heterogeneous enhancing metastatic disease in the right hepatic lobe now measuring 5.4 x 4.9 x 9.9 cm compared to 5.7 x 4.2 x 5.1 in September 2019. And persistent large low-attenuation pelvic mass measuring 12.1 x 9.9 cm not significantly changed which could be ovarian cyst versus mucinous and serous cystadenoma/cystadenocarcinoma. No periaortic or inguinal lymphadenopathy. Stable sclerotic foci at T10 and superior acetabulum. tolerating palliative chemotherapy with Abraxane/gemcitabine well Came for follow-up, denies any specific complaints except generalized weakness and fatigue but no nausea or vomiting no diarrhea constipation no abdominal pain, no fever chills, tolerating palliative therapy with Abraxane/gemcitabine well Medications: HYDROcodone-Acetaminophen 1 Tablet (of 10-325 mg) Oral q 5 hours PRN, Levothyroxine Sodium 1 Tablet (of 100 mcg) Oral daily, Ondansetron HCl 1 Tablet (of 4 mg) Oral q 6 hours PRN Allergies: No Known Allergies. Review of Systems: Constitutional - Appetite is diminished and weight is stable. No fever, chills, hot flashes. Positive for night sweats. Energy level is fair, ENMT - Positive for sinus congestion/drainage. No mouth sores. No sore throat or difficulty swallowing, Hematologic/Lymphatic - Positive for easy bruisnig, Respiratory - No shortness of breath. No cough. No pleuritic pain or hemoptysis, Cardiovascular - No angina pain. No palpitations, Gastrointestinal - Positive for nausea, no vomiting. No heartburn or acid reflux. Positive for diarrhea, no constipation. No blood in the stool or black stools, Genitourinary (F) - No dysuria or hematuria. No urinary frequency. No urgency or incontinence, Musculoskeletal - No joint or bone pain, Neurologic - No headache or dizziness. No numbness/paresthesias or other focal neurologic symptoms, Psychiatric - Positive for anxiety. Vital Signs: Performed on Jan 04, 2020 08:04 Height - 59.00 in Weight - 132.4 lbs (HIGH) BSA - 1.55 sq.m BMI - 26.74 Temperature - 97.6 F (LOW) Pulse - 95 /min Respiration - 20 /min BP - 131/67 mm(hg) O2 Sat - 97 % Pain - 0 Performance Status: 1 - No physically strenuous activity, but ambulatory and able to carry out light or sedentary work (e.g. office work, light house work). (ECOG) Physical Examination: ENMT - No mouth sores, no thrush, no jaundice, Respiratory - Lungs are clear, Cardiovascular - Regular rate and rhythm of heart, Abdomen - Soft, bowel sounds present, Extremities - Trace edema bilaterally. Lab/Imaging: Test performed on Dec 13, 2019 08:26 Sodium 132 mmol/L Potassium 3.9 mmol/L Chloride 96 mmol/L CO2 25 mmol/L Anion Gap 14.9 BUN 12 mg/dL Creatinine 0.3 mg/dL Cr Clearance (Est) 167.1900 mL/min Glucose 123 mg/dL Calcium 8.5 mg/dL Protein, Total 7.1 g/dL Albumin 3.2 g/dL Globulin 3.9 g/dL Bilirubin, Total 0.2 mg/dL ALT (SGPT) 17 U/L AST (SGOT) 20 U/L Alkaline Phosphatase 316 IU/L WBC 4.9 10 3/uL RBC 3.07 10 6/uL HGB 9.1 g/dL HCT 29.6 % MCV 96.4 fL MCH 29.6 pg MCHC 30.7 g/dL RDW 18.8 % Platelet Count 283 10 3/cmm MPV 10.0 fL Neutrophils 2.92 10 3/uL Lymphocytes 0.8 10 3/uL Monocytes 1.0 10 3/uL Eosinophils 0.1 10 3/uL Basophils 0.1 10 3/uL Neutrophil % 59.9 % Lymphocyte % 16.0 % Monocyte % 20.9 % Eosinophil % 1.8 % Basophils % 1.0 % NRBC % 0 % Test performed on Nov 22, 2019 09:00 CA 19-9 95260 U/mL Test performed on Nov 08, 2019 13:07 CBC Slide Review Slide Review Perform SLIDE REVIEW AGREES WITH AUTOMATED RESULTS ST Test performed on Nov 01, 2019 08:35 TSH 20.94 uIU/mL Test performed on September 25, 2019 09:00 Manual Bands % 11.0 % Manual Lymphs % 3 % Manual Monos % 3.0 % Metamyelocytes % 2.0 % Myelocytes % 2.0 % Polychromasia 2+ Anisocytosis 2+ Macrocytosis 1+ Microcytosis 1+ Manual Bands Abs 3.2 10 3/cmm Manual Monocytes Abs 0.9 10 3/cmm Test performed on Aug 16, 2019 08:57 Manual Eosinophils 1 % CEA 113.9 ng/mL Impression: Moderately differentiated adenocarcinoma per ultrasound-guided liver biopsy done on 07/17/2019, immunohistochemistry positive for CK 7, vimentin, high molecular weight CK, CA 19???9, NICOLAS. CT scan of abdomen pelvis done on 07/10/2019 showed a mass in the pancreatic tail measuring 2.6 x 2.7 x 4.9 cm containing mostly soft tissue density having less enhancement than normal pancreas, highly suggestive of primary malignancy and having invaded and occluded the splenic vein, concern for developing invasion of splenic artery. Multiple liver masses consistent with metastatic disease. Large pelvic mass having density suggestive of ovarian cyst, but cystoadenoma not excluded considering rim calcification in the mass, status post hysterectomy and bilateral oophorectomy for repeated awaiting cysts Sclerotic focus in T10, questionable second bone island considering possible bone island in the left superior acetabulum. History of hypothyroidism History of hyperlipidemia Ms. Bone was offered treatment with FOLFIRI Pang. She began her first cycle on August 16, 2019. It is concerning taht her markedly increased tumor marker CA 19???9 and now is fluctuating , f/u . CT scan of abdomen pelvis done on 10/18/2019 showed pancreatic tail mass with more low-attenuation and changes and overall slightly increased in size now 2.9 x 2.1 cm and again seen numerous large metastatic hepatic lesion slight increase in size from previous and more surrounding heterogeneous enhancement in the largest lesion is 4.2 x 5.7 cm right hepatic lobe increased from 3.2 x 4.[address] scan on 07/10/2019. Unchanged chronic occlusion of splenic vein. Large low-attenuation pelvic lesion measuring 12.1 x 9.9 cm not significantly changed. Stable sclerotic focus at T10 and left superior acetabulum unchanged As follow-up CT scan of abdomen pelvis showed disease progression, so folfirinox was discontinued after 5 cycles on 10/10/2019 and she was switched to weekly Abraxane/gemcitabine. She was able to complete day 1 & 8 of cycle 1. Day 15 was held due to thrombocytopenia. Platelets had dropped from 141,000 on day 8 to 90,000 on day 15. Her ANC had dropped from 6000 on day 8 to 2000 on day 15. Plan: Discussed with patient regarding her labs white blood count 10.1 hemoglobin 8.8 hematocrit 28 platelets 2 65,000 CMP within normal limit except potassium 3.3 and TSH 6.14 compared to 8.16 on December 27, 2019 when her Synthroid dose was increased to 150 mcg p.o. daily Clinically, patient is doing reasonably well with good palliation, tolerating weekly Abraxane/gemcitabine well but with expected side effects e.g. persistent/mildly progressive moderate anemia. We will proceed with next weekly dose of chemotherapy with Abraxane and gemcitabine today and then she will return to clinic in 2 weeks with CBC CMP and TSH Mild hypokalemia, will consider supplement and follow As far as hypothyroidism is concerned, will continue with Synthroid 150 mcg daily and repeat TSH in 2 weeks, if it continues to improve we will keep same dose otherwise we will adjust. Patient has been referred to Dr. Tejada in [place] for evaluation for intra-arterial hepatic chemotherapy. In the meantime we will continue supportive care, consider blood transfusion if hemoglobin drops below 8 g Signed By: Thomas Moreno M.D. <<Signature on File>>
[2020-01-17 08:39] LABS: Basophils # 0.1 10^3/uL (0.0-0.1); Basophils % 0.5 %; Eosinophils # 0.3 10^3/uL (0.0-0.8); Eosinophils % 2.4 %; Hematocrit 28.8 % (37.0-47.0); Hemoglobin 8.8 g/dL (11.5-15.3); Lymphocytes # 1.7 10^3/uL (0.8-4.8); Lymphocytes % 15.8 %; Mean Corpuscular HGB Conc 30.6 g/dL (30.0-36.0); Mean Corpuscular Hemoglobin 28.9 pg (28.0-34.0); Mean Corpuscular Volume 94.4 fL (81-99); Mean Platelet Volume 9.7 fL (7.4-10.4); Monocytes # 2.1 10^3/uL (0.2-0.9); Neutrophils # 6.35 10^3/uL (1.8-7.7); Neutrophils % 60.7 %; Nucleated Red Blood Cells % 0 %; Platelet Count 605 10^3/cmm (130-400); Red Blood Count 3.05 10^6/uL (4.1-5.3); Red Cell Distribution Width 18.9 % (12.1-15.1); White Blood Count 10.5 10^3/uL (4.0-10.0)
[2020-01-17 09:18] LABS: Alanine Aminotransferase 9 U/L (0-33); Albumin Level 3.4 g/dL (3.5-5.2); Alkaline Phosphatase 398 IU/L (35-105); Anion Gap 12.2 (5-19); Aspartate Amino Transferase 14 U/L (0-32); Blood Urea Nitrogen 7 mg/dL (8-23); Calcium 8.8 mg/dL (8.5-10.5); Carbon Dioxide 26 mmol/L (22-29); Chloride 98 mmol/L (98-107); Globulin 3.4 g/dL (1.3-4.6); Glucose 103 mg/dL (65-115); Osmolality Calculated 270 mOsm/kg (285-295); Potassium 4.2 mmol/L (3.5-5.1); Sodium 132 mmol/L (136-145); Thyroid Stimulating Hormone 7.06 uIU/mL (0.27-4.20); Total Bilirubin 0.4 mg/dL (0.15-1.2); Total Protein 6.8 g/dL (6.6-8.7)
--- NOTE | 2020-01-18 17:50 | ONC FU_ITS ---
Dr. Moreno follow up note Patient: Anyi Bone Unit #: [id number]: 1945 Dicatated By: Thomas Moreno M.D.Date of Visit:Jan 18, 2020 Onc Med Follow-up/Prog Note History of Present Illness: Mrs. Bone is a 74-year-old female who was admitted to [facility] on 07/10/2019 with right upper quadrant abdominal pain. CT of the abdomen pelvis from July 10, 2019 reported multiple liver masses containing soft tissue density the largest measuring 4.5 cm in greatest diameter; no demonstration of these masses on the prior ultrasound from 01/05/2019. Gallbladder and bile ducts revealed no calcified stones no ductal dilatation. Pancreas reported relatively ill-defined margins of the mass in the pancreatic tail measuring 2.6 x 2.7 x 4.9 cm containing mostly soft tissue density having less enhancement than the normal pancreas; small anterior focus of water density in this mass the spleen revealed no splenomegaly. The adrenals an kidneys were unremarkable. The stomach and bowel reported at least moderate sigmoid colonic diverticulosis but no obstruction. Normal appendix. The intraperitoneal space had no free air and no apparent free fluid. Vascular. No normal splenic vein; probable invasion occlusion of the splenic vein by the pancreatic mass, especially considering the small varices in the splenic hilus. Concerning for development of invasion of the splenic artery in light of the lack of fat between the mass and the artery and the apparent slight irregularity of part of the arterial margin. There was no aortic aneurysm or enlargement of the periportal nodes or other abdominal and pelvic nodes. There was a small metallic density in the left side of the vaginal cuff and in the left pelvis adjacent to the sigmoid colon. Over 12 mm calcification adjacent to the left margin of the the approximately 10 x 13.1 x 10.1 cm slightly lobulated pelvic mass containing multiple rim calcifications but mostly homogeneous water density; small focus of slight wall thickening in the anterior inferior margin of the mass along with the medial aspect of the right lobulation. There was possible bone island in the left superior acetabulum. Small sclerotic focus in the left superior aspect of T10, significance unclear. There was noted to be old compression fractures and degeneration of several disc. An ultrasound guided liver biopsy was performed on 07/17/2019 and pathology revealed moderately differentiated adenocarcinoma. Immunohistochemistry was positive for CK 7, vimentin, CA 19???9 NICOLAS. Focally positive for CEA. Mrs Bone is in excellent health otherwise. Medical history significant for hypothyroidism, hyperlipidemia and she has history of hysterectomy in the past. She does moke about half pack a day the last 30 years, denies alcohol use. History of hypothyroidism on thyroid supplements Mrs Bone was seen and was offered treatment with modified FOLFIRI. She started on modified dose for folfirinox every 2 weeks on 08/16/2019. CT scan of abdomen pelvis done on October 18, 2019 showed pancreatic tail mass with more low attenuation and overall slightly increased in size now 2.9 x 2.1 cm and again seen numerous large metastatic hepatic lesions slightly increased in size from previous and largest lesion is 4.2 x 5.7 cm in the right hepatic lobe increased from 3.2 x 4.2 cm seen previously. And large low-attenuation palate lesion measuring 12.1 x 9.9 cm not significantly changed. Stable sclerotic focus at T10 and left superior acetabulum unchanged. And her tumor marker CA 19???9 keep fluctuating in the range of 20,000, with follow-up CT scan finding suggestive of disease progression and persistently markedly elevated tumor marker, it was decided to discontinue FOlforinox and on October 26, 2019 she was switched to weekly Abraxane/gemcitabine. Follow-up CT scan of abdomen pelvis done on December 26, 2019 showed significant improvement in the pancreatic tail mass measuring 1.3 x 0.8 cm compared to 2.1 x 2.9 cm on October 18, 2019 Persistent metastatic lesion in the left hepatic lobe improved, now measuring 4.1 x 3.3 cm compared to 4.6 x 3.5 cm before, similarly additional hepatic lesions measuring 1.9 to 2.2 cm also decreased from previous But progressed diffuse conglomerates heterogeneous enhancing metastatic disease in the right hepatic lobe now measuring 5.4 x 4.9 x 9.9 cm compared to 5.7 x 4.2 x 5.1 in September 2019. And persistent large low-attenuation pelvic mass measuring 12.1 x 9.9 cm not significantly changed which could be ovarian cyst versus mucinous and serous cystadenoma/cystadenocarcinoma. No periaortic or inguinal lymphadenopathy. Stable sclerotic foci at T10 and superior acetabulum. tolerating palliative chemotherapy with Abraxane/gemcitabine well was Put on hold on January 18, 2020 after last dose Of Abraxane/gemcitabine was given on January 04, 2020 as patient was scheduled for chemoembolization to the liver for January 30, 2020 Came for follow-up, denies any specific complaints, no fever chills, no nausea or vomiting, no diarrhea or constipation, patient said she has seen Dr. Tejada in [place], now being considered for chemoradiation to the liver and scheduled for January 30, 2020, as per patient initially procedure will be done to the one lobe of the liver and then month after to the second lobe. She did not not discuss with Dr. Tejada regarding SBRT to the pancreatic mass and also about pelvic mass but now on her next visit she will discuss with him. Medications: HYDROcodone-Acetaminophen 1 Tablet (of 10-325 mg) Oral q 5 hours PRN, Levothyroxine Sodium 1 Tablet (of 100 mcg) Oral daily, Ondansetron HCl 1 Tablet (of 4 mg) Oral q 6 hours PRN Allergies: No Known Allergies. Review of Systems: Constitutional - Appetite is diminished and weight is stable. No fever, chills, hot flashes. Positive for night sweats. Energy level is fair, ENMT - Positive for sinus congestion/drainage. No mouth sores. No sore throat or difficulty swallowing, Hematologic/Lymphatic - Positive for easy bruisnig, Respiratory - No shortness of breath. No cough. No pleuritic pain or hemoptysis, Cardiovascular - No angina pain. No palpitations, Gastrointestinal - Positive for nausea, no vomiting. No heartburn or acid reflux. Positive for diarrhea, no constipation. No blood in the stool or black stools, Genitourinary (F) - No dysuria or hematuria. No urinary frequency. No urgency or incontinence, Musculoskeletal - No joint or bone pain, Neurologic - No headache or dizziness. No numbness/paresthesias or other focal neurologic symptoms, Psychiatric - Positive for anxiety. Vital Signs: Performed on Jan 18, 2020 08:06 Height - 59.00 in Weight - 129.4 lbs (LOW) BSA - 1.53 sq.m BMI - 26.14 Temperature - 97.4 F (LOW) Pulse - 89 /min Respiration - 20 /min BP - 131/77 mm(hg) O2 Sat - 99 % Pain - 0 Performance Status: 0 - Fully active, able to carry on all predisease activities without restrictions. (ECOG) Physical Examination: ENMT - No mouth sores, no thrush, no jaundice, Respiratory - Lungs are clear, Cardiovascular - Regular rate and rhythm of heart, Abdomen - Soft, bowel sounds present, Extremities - No visible edema. Lab/Imaging: Test performed on Dec 13, 2019 08:26 Sodium 132 mmol/L Potassium 3.9 mmol/L Chloride 96 mmol/L CO2 25 mmol/L Anion Gap 14.9 BUN 12 mg/dL Creatinine 0.3 mg/dL Cr Clearance (Est) 167.1900 mL/min Glucose 123 mg/dL Calcium 8.5 mg/dL Protein, Total 7.1 g/dL Albumin 3.2 g/dL Globulin 3.9 g/dL Bilirubin, Total 0.2 mg/dL ALT (SGPT) 17 U/L AST (SGOT) 20 U/L Alkaline Phosphatase 316 IU/L WBC 4.9 10 3/uL RBC 3.07 10 6/uL HGB 9.1 g/dL HCT 29.6 % MCV 96.4 fL MCH 29.6 pg MCHC 30.7 g/dL RDW 18.8 % Platelet Count 283 10 3/cmm MPV 10.0 fL Neutrophils 2.92 10 3/uL Lymphocytes 0.8 10 3/uL Monocytes 1.0 10 3/uL Eosinophils 0.1 10 3/uL Basophils 0.1 10 3/uL Neutrophil % 59.9 % Lymphocyte % 16.0 % Monocyte % 20.9 % Eosinophil % 1.8 % Basophils % 1.0 % NRBC % 0 % Test performed on Nov 22, 2019 09:00 CA 19-9 68346 U/mL Test performed on Nov 08, 2019 13:07 CBC Slide Review Slide Review Perform SLIDE REVIEW AGREES WITH AUTOMATED RESULTS ST Test performed on Nov 01, 2019 08:35 TSH 20.94 uIU/mL Test performed on September 25, 2019 09:00 Manual Bands % 11.0 % Manual Lymphs % 3 % Manual Monos % 3.0 % Metamyelocytes % 2.0 % Myelocytes % 2.0 % Polychromasia 2+ Anisocytosis 2+ Macrocytosis 1+ Microcytosis 1+ Manual Bands Abs 3.2 10 3/cmm Manual Monocytes Abs 0.9 10 3/cmm Test performed on Aug 16, 2019 08:57 Manual Eosinophils 1 % CEA 113.9 ng/mL Impression: Moderately differentiated adenocarcinoma per ultrasound-guided liver biopsy done on 07/17/2019, immunohistochemistry positive for CK 7, vimentin, high molecular weight CK, CA 19???9, NICOLAS. CT scan of abdomen pelvis done on 07/10/2019 showed a mass in the pancreatic tail measuring 2.6 x 2.7 x 4.9 cm containing mostly soft tissue density having less enhancement than normal pancreas, highly suggestive of primary malignancy and having invaded and occluded the splenic vein, concern for developing invasion of splenic artery. Multiple liver masses consistent with metastatic disease. Large pelvic mass having density suggestive of ovarian cyst, but cystoadenoma not excluded considering rim calcification in the mass, status post hysterectomy and bilateral oophorectomy for repeated awaiting cysts Sclerotic focus in T10, questionable second bone island considering possible bone island in the left superior acetabulum. History of hypothyroidism History of hyperlipidemia Ms. Bone was offered treatment with FOLFIRI Pang. She began her first cycle on August 16, 2019. It is concerning taht her markedly increased tumor marker CA 19???9 and now is fluctuating , f/u . CT scan of abdomen pelvis done on 10/18/2019 showed pancreatic tail mass with more low-attenuation and changes and overall slightly increased in size now 2.9 x 2.1 cm and again seen numerous large metastatic hepatic lesion slight increase in size from previous and more surrounding heterogeneous enhancement in the largest lesion is 4.2 x 5.7 cm right hepatic lobe increased from 3.2 x 4.[address] scan on 07/10/2019. Unchanged chronic occlusion of splenic vein. Large low-attenuation pelvic lesion measuring 12.1 x 9.9 cm not significantly changed. Stable sclerotic focus at T10 and left superior acetabulum unchanged As follow-up CT scan of abdomen pelvis showed disease progression, so folfirinox was discontinued after 5 cycles on 10/10/2019 and she was switched to weekly Abraxane/gemcitabine. She was able to complete day 1 & 8 of cycle 1. Day 15 was held due to thrombocytopenia. Platelets had dropped from 141,000 on day 8 to 90,000 on day 15. Her ANC had dropped from 6000 on day 8 to 2000 on day 15. Plan: Discussed with patient regarding her labs white blood count 10.5 hemoglobin 8.8 hematocrit 28.8 platelets 605,000 CMP within normal limit except sodium 132 and alk phos 398 Clinically, patient doing reasonably well, now being considered for chemoradiation to the liver and patient scheduled for procedure on January 30, 2020 in [place], as per patient in that day chemo evaluation will be done to the one lobe and then month after the second lobe., We will also discuss with Dr. Tejada regarding referral to radiation oncology for evaluation for SBRT to the pancreatic mass and referred to [employer] for pelvic mass evaluation., To minimize toxicity to the liver, we will discontinue her systemic chemotherapy now and Patient will return to clinic in 2 months with CBC CMP. Signed By: Thomas Moreno M.D. <<Signature on File>>
== END 2020-01-22 23:59 | disposition home or self-care (01) ==
LOC: ONCMED 05:35
PROVIDERS: PCP Family Medicine; Visit Provider Internal Medicine Hematology & Oncology
DX: Z51.11 Encounter for antineoplastic chemotherapy (principal); C25.2 Malignant neoplasm of tail of pancreas; C78.7 Secondary malignant neoplasm of liver and intrahepatic bile duct; E78.5 Hyperlipidemia, unspecified; E03.9 Hypothyroidism, unspecified
CPT/HCPCS: 36591; 74177; 80053; 84443; 85025; 86301; 96367; 96413; 96417; 99214; J1100; J2469; J3490; J7050; J9201; J9264; Q9967

== ENCOUNTER → 2020-01-26 08:40 | Outpatient (BNVA) | payer MEDICARE, SELFPAY | PROVIDERS: PCP Family Medicine; Visit Provider Internal Medicine | DX: Z11.59 Encounter for screening for other viral diseases (principal) | CPT/HCPCS: 87635 ==